=== PATIENT | female | born 1940 | race Caucasian/White ===

== ENCOUNTER 2018-06-17 11:39 | Observation (INO) | payer OTHER ==
[~2018-06-17] VITALS: Ht 170.2 cm; Wt 100.2 kg
[~2018-06-17 11:39] MED LIST: ATV/1 PO; CHOL100027 PO; CYAN100020 PO; FLUO10CA48 PO; HYDR-4380 PO; HYDR50TA3 PO; K-DUR PO; LEVO200T6 PO; LOSA1TAB PO; MAGN1TAB19 PO; METF500T PO; METO-452 PO; ONDA4TAB46 PO; PANT40TA PO; RANI150T3 PO; SIMV20TA5 PO; TRAZ100T29 PO
[2018-06-17] MEDS ORDERED: SODIUM CHLORIDE 0.9% 1000ML 1,000 ML IV STA (11:59)
[2018-06-17 12:13] LABS: BASO % 0.5 %; BASO ABS # 0.03 K/uL (0-0.2); EOS % 3.1 %; EOS ABS # 0.17 K/uL (0-0.5); HEMATOCRIT 43.7 % (37-47); HEMOGLOBIN 14.7 g/dL (12.0-16.0); IG# 0.01 K/uL (0.00-0.02); LYMPH % 29.7 %; LYMPH ABS # 1.64 K/uL (1.2-3.4); MEAN CELL VOLUME 100.2 fL (80-100); MEAN CORPUSCULAR HEMOGLOBIN 33.7 pg (25-34); MEAN CORPUSCULAR HGB CONC 33.6 g/dl (32-36); MEAN PLATELET VOLUME 11.4 fL (7.4-10.4); MONO ABS # 0.61 K/uL (0.11-0.59); NEUT % 55.5 %; NEUT ABS # 3.07 K/uL (1.4-6.5); PLATELET COUNT 184 K/uL (130-400); RED CELL DISTRIBUTION WIDTH SD 47.7 fL (36.4-46.3); WHITE BLOOD COUNT 5.53 K/uL (4.8-10.8)
--- NOTE | 2018-06-17 12:13 | DIAGNOSTIC IMAGING REPORT ---
CHEST ONE VIEW PORTABLE CLINICAL HISTORY: EVALUATE WEAKNESS weakness COMPARISON STUDY: 10/13/2014 FINDINGS: Mild cardia megaly. Lungs are clear. Permanent bipolar cardiac pacemaker/defibrillator in good position. No evidence pneumothorax. IMPRESSION: No acute process. The above report was generated using voice recognition software. It may contain grammatical, syntax or spelling errors. Electronically signed by: Rod Koo M.D. 06/17/2018 12:12 PM Dictated Date/Time: 06/17/2018 12:11 PM
[2018-06-17 12:22] LABS: INR 1.2 (0.9-1.1); PTT PATIENT 27.4 SECONDS (21.0-31.0)
[2018-06-17 12:43] LABS: ALBUMIN 3.3 gm/dl (3.4-5.0); ALKALINE PHOSPHATASE 64 U/L (45-117); ALT/SGPT 23 U/L (12-78); AST/SGOT 25 U/L (15-37); BLOOD UREA NITROGEN 18 mg/dl (7-18); CALCIUM 8.2 mg/dl (8.5-10.1); CARBON DIOXIDE 27 mmol/L (21-32); CKMB < 1.0 ng/ml (0.5-3.6); CREATININE 0.86 mg/dl (0.60-1.20); GLUCOSE 99 mg/dl (70-99); POTASSIUM 4.1 mmol/L (3.5-5.1); SODIUM 137 mmol/L (136-145)
[2018-06-17] MEDS ORDERED: HYDR12.56 PO (12:53)
[2018-06-17] MEDS ORDERED: WARF2TAB8 PO ×2 (12:53→14:52)
[2018-06-17] MEDS ORDERED: CZR25 PO (12:53)
[2018-06-17] MEDS ORDERED: FLUO20CA36 PO (12:53)
[2018-06-17] MEDS ORDERED: POTA10TA PO (12:53)
[2018-06-17] MEDS ORDERED: TPRSR/100 PO (12:53)
[2018-06-17] MEDS ORDERED: LEVO125T5 PO (12:53)
[2018-06-17] MEDS ORDERED: NITROGLYCERIN 2% OINTMENT 30GM TUBE EXT ONE (14:00)
[2018-06-17 14:05] VITALS: O2SAT 96; Ht 170.2 cm; Wt 100.2 kg
[2018-06-17] MEDS ORDERED: NITROGLYCERIN 0.4 MG SL PER TAB CHARGE SL PRN (14:45)
[2018-06-17] MEDS ORDERED: ACETAMINOPHEN 325 MG TAB PO PRN (14:45)
--- NOTE | 2018-06-17 14:48 | EMERGENCY ROOM VISIT NOTE ---
History Report prepared by Jose: Candi Hughes Under the Supervision of: Dr. Tello Veliz M.D. First contact with patient: 11:59 Chief Complaint: CHEST PAIN Stated Complaint: CHEST PAIN, PAIN/ACHE DOWN LEFT ARM History of Present Illness The patient is a 78 year old female who presents to the Emergency Room with complaints of chest pain beginning earlier this morning. The patient states that she was in bed when her pain came on suddenly. She rates her pain at a 6/ 10 and states that she took 2 Tylenol for her symptoms but states that this did not alleviate her pain. The patient states that she has also had left arm pain. The patient reports having numbness in her arm currently but no chest pain. The patient denies having chest or arm pain over the last couple of days and she denies doing anything strenuous recently. The patient states that she has a pacemaker. She reports that she follows with Dr. Langston [facility]. The patient denies a history of heart attacks or blockages. She states that she is not a smoker. The patient reports a family history of heart problems. Pt denies headache, fevers, chills, diaphoresis, visual changes, neck pain, breathing difficulties, nausea, vomiting, abdominal pain, back pain, melena, hematochezia, urinary symptoms, lymphadenopathy, rash, or other complaints. Source of History: patient Onset: earlier this morning Position: chest Symptom Intensity: rated at a 6/10 Quality: other (pain) Associated Symptoms: + numbness (and pain in right arm ), No SOB Review of Systems See HPI for pertinent positives and negatives. A total of ten systems were reviewed and were otherwise negative. Past Medical & Surgical Medical Problems: (1) Hypertension (2) Left arm numbness (3) Shoulder pain Family History FH: congenital heart problem Social History Smoking Status: Never Smoker Drug Use: none Marital Status: Housing Status: lives with family Occupation Status: unemployed Current/Historical Medications Scheduled Cholecalciferol (Vitamin D 1000 Unit), 1,000 INTER.UNIT PO QAM Cyanocobalamin (Vitamin B12), 1 TAB PO QAM Fluoxetine HCl (Fluoxetine HCl), 20 MG PO BID Hydrochlorothiazide (Hctz), 12.5 MG PO 2XWK Levothyroxine Sodium (Levothyroxine Sodium), 125 MG PO DAILY Losartan Potassium (Losartan Potassium), 25 MG PO DAILY Magnesium Oxide (Mg Supplement (Magnesium Oxide), 1 TAB PO BID Metformin Hcl (Glucophage), 1 TAB PO DAILY AFTER LUNCH Metoprolol Succinate (Metoprolol Succinate ER), 100 MG PO BID Pantoprazole (Protonix), 40 MG PO QAM Potassium Chloride (K-Tabs), 10 MEQ PO DAILY Ranitidine Hcl (Zantac), 150 MG PO BID Simvastatin (Zocor), 20 MG PO QPM Trazodone Hcl (Trazodone), 100 MG PO HS Warfarin Sod (Jantoven), MG PO UD Allergies Coded Allergies: Clarithromycin (Verified Allergy, Unknown, 06/17/18) Codeine (Verified Allergy, Unknown, 06/17/18) Penicillins (Verified Allergy, Unknown, AMPICILLIN, 06/17/18) Corticosteroids (Verified Adverse Reaction, Intermediate, BODY SWELLS UP, 06/17/18) Morphine (Verified Adverse Reaction, Intermediate, CONFUSION, 06/17/18) Physical Exam Vital Signs Date Time Temp Pulse Resp B/P (MAP) Pulse Ox O2 Delivery O2 Flow Rate FiO2 06/17/18 14:19 73 14 161/102 96 Room Air 06/17/18 13:22 73 18 171/103 95 Room Air 06/17/18 12:03 81 06/17/18 12:00 98 Room Air 06/17/18 12:00 98 Room Air 06/17/18 11:41 36.6 90 17 153/89 98 Room Air Physical Exam GENERAL: Awake, alert, well-appearing, in no distress HENT: Normocephalic, atraumatic. Oropharynx unremarkable. EYES: Normal conjunctiva. Sclera non-icteric. NECK: Supple. No nuchal rigidity. FROM. No masses. RESPIRATORY: Clear to auscultation. No wheezes. No rales. Normal respiratory effort. CARDIAC: Borderline tachycardia. Normal rhythm. No murmurs. No rubs. Extremities warm and well perfused. Pulses equal. No JVD. CHEST: No tenderness in the left upper chest. Pacemaker present. GI: Soft, non-distended. No tenderness to palpation. No rebound or guarding. No masses. RECTAL: Deferred. MUSCULOSKELETAL: Atraumatic. Chest examination reveals no tenderness. The back is symmetrical on inspection without obvious abnormality. There is no CVA tenderness to palpation. No joint edema. LOWER EXTREMITIES: Calves are equal size bilaterally and non-tender. No edema. No discoloration. NEURO: Normal sensorium. No sensory or motor deficits noted. SKIN: No rash or jaundice noted. Medical Decision & Procedures ER Provider Diagnostic Interpretation: Radiology results as stated below per my review and radiologist interpretation: CHEST ONE VIEW PORTABLE CLINICAL HISTORY: EVALUATE WEAKNESS weakness COMPARISON STUDY: 10/13/2014 FINDINGS: Mild cardia megaly. Lungs are clear. Permanent bipolar cardiac pacemaker/defibrillator in good position. No evidence pneumothorax. IMPRESSION: No acute process. The above report was generated using voice recognition software. It may contain grammatical, syntax or spelling errors. Electronically signed by: Rod Koo M.D. 06/17/2018 12:12 PM Dictated Date/Time: 06/17/2018 12:11 PM Laboratory Results 06/17/18 12:00 Red Blood Count 4.36, Mean Corpuscular Volume 100.2, Mean Corpuscular Hemoglobin 33.7, Mean Corpuscular Hemoglobin Concent 33.6, Mean Platelet Volume 11.4, Neutrophils (%) (Auto) 55.5, Lymphocytes (%) (Auto) 29.7, Monocytes (%) ( Auto) 11.0, Eosinophils (%) (Auto) 3.1, Basophils (%) (Auto) 0.5, Neutrophils # (Auto) 3.07, Lymphocytes # (Auto) 1.64, Monocytes # (Auto) 0.61, Eosinophils # ( Auto) 0.17, Basophils # (Auto) 0.03 06/17/18 12:00 Test 06/17/18 12:00 White Blood Count 5.53 K/uL (4.8-10.8) Red Blood Count 4.36 M/uL (4.2-5.4) Hemoglobin 14.7 g/dL (12.0-16.0) Hematocrit 43.7 % (37-47) Mean Corpuscular Volume 100.2 fL (80-100) Mean Corpuscular Hemoglobin 33.7 pg (25-34) Mean Corpuscular Hemoglobin Concent 33.6 g/dl (32-36) Platelet Count 184 K/uL (130-400) Mean Platelet Volume 11.4 fL (7.4-10.4) Neutrophils (%) (Auto) 55.5 % Lymphocytes (%) (Auto) 29.7 % Monocytes (%) (Auto) 11.0 % Eosinophils (%) (Auto) 3.1 % Basophils (%) (Auto) 0.5 % Neutrophils # (Auto) 3.07 K/uL (1.4-6.5) Lymphocytes # (Auto) 1.64 K/uL (1.2-3.4) Monocytes # (Auto) 0.61 K/uL (0.11-0.59) Eosinophils # (Auto) 0.17 K/uL (0-0.5) Basophils # (Auto) 0.03 K/uL (0-0.2) RDW Standard Deviation 47.7 fL (36.4-46.3) RDW Coefficient of Variation 13.0 % (11.5-14.5) Immature Granulocyte % (Auto) 0.2 % Immature Granulocyte # (Auto) 0.01 K/uL (0.00-0.02) Prothrombin Time 12.5 SECONDS (9.0-12.0) Prothromb Time International Ratio 1.2 (0.9-1.1) Activated Partial Thromboplast Time 27.4 SECONDS (21.0-31.0) Partial Thromboplastin Ratio 1.1 Anion Gap 5.0 mmol/L (3-11) Est Creatinine Clear Calc Drug Dose 67.7 ml/min Estimated GFR () 76.1 Estimated GFR (Non- 65.6 BUN/Creatinine Ratio 21.4 (10-20) Calcium Level 8.2 mg/dl (8.5-10.1) Magnesium Level 2.0 mg/dl (1.8-2.4) Total Bilirubin 0.5 mg/dl (0.2-1) Direct Bilirubin 0.2 mg/dl (0-0.2) Aspartate Amino Transf (AST/SGOT) 25 U/L (15-37) Alanine Aminotransferase (ALT/SGPT) 23 U/L (12-78) Alkaline Phosphatase 64 U/L (45-117) Total Creatine Kinase 45 U/L (26-192) Creatine Kinase MB < 1.0 ng/ml (0.5-3.6) Creatine Kinase MB Ratio (0-3.0) Troponin I < 0.015 ng/ml (0-0.045) Total Protein 7.0 gm/dl (6.4-8.2) Albumin 3.3 gm/dl (3.4-5.0) Thyroid Stimulating Hormone (TSH) 1.930 uIu/ml (0.300-4.500) Laboratory results reviewed by me Medications Administered Medications (Trade) Dose Ordered Sig/Vero Route Start Time Stop Time Status Last Admin Dose Admin Sodium Chloride 1,000 ml @ 125 mls/hr Q8H STAT IV 06/17/18 11:59 06/17/18 19:58 06/17/18 12:24 125 MLS/HR Nitroglycerin (Nitroglycerin 2% Oint) 0.5 inch NOW ONCE EXT 06/17/18 14:00 06/17/18 14:01 DC 06/17/18 14:21 0.5 INCH ECG Per My Interpretation Indication: chest pain Rate (beats per minute): 104 Rhythm: other (paced) Findings: PVC, other (no ST elevation, no ST depression ) ED Course 1159: Ordered Sodium Chloride 1000 ml @ 125 mls/hr IV. 1208: The patient was evaluated in room C2B. A complete history and physical exam was performed. 1349: Upon reexamination, the patient was resting. I discussed the test results and treatment plan with her. The patient will be evaluated for further management by Gertrudis SPRING who asked for the patient to get another dose of nitro paste. 1400: Ordered Nitroglycerin 0.5 inch EXT. Medical Decision Prior records/ancillary studies reviewed. Triage Nursing notes reviewed and agree them. Additional history obtained from the family. The patient's history was concerning for chest pain. Differential diagnosis: Etiologies such as cardiac ischemia, aortic dissection, pulmonary embolism, pneumonia, pneumothorax, musculoskeletal, infections, pericarditis, myocarditis , esophageal rupture, gastrointestinal, as well as others were entertained. Physical examination: As above. ER treatment provided: Saline hydration Nitropaste On reassessment the patient felt better. The patient notes GI upset with aspirin and is currently taking Coumadin. Aspirin held pending further evaluation by internal medicine. Diagnostic interpretation by me: The electrocardiogram was negative for pathologic change. Mild tachycardia noted paced rhythm. Pacemaker interrogation ordered. The labs revealed an unremarkable CBC and chemistry panel. Cardiac markers negative. INR subtherapeutic. Imaging studies: Chest x-ray as above The patient had left-sided chest pain and left arm pain. She will need further evaluation in the hospital to rule out a cardiac etiology. Pacemaker interrogation has been ordered but is not currently completed. Consultation: A consultation was placed with the hospitalist. The case was discussed and diagnostics were reviewed. The patient was evaluated in the ER for further treatment. Medication Reconcilliation Current Medication List: was personally reviewed by me Blood Pressure Screening Patient's blood pressure: Elevated blood pressure will be monitored by hospitalist Consults Time Called: 1338 Consulting Physician: Gertrudis Paniagua Returned Call: 1346 Discussed the patient's case. The patient will be evaluated for further treatment and disposition. Impression Primary Impression: Left sided chest pain Additional Impression: Left arm pain Scribe Attestation The scribe's documentation has been prepared under my direction and personally reviewed by me in its entirety. I confirm that the note above accurately reflects all work, treatment, procedures, and medical decision making performed by me. Departure Information Dispostion Being Evaluated By Hospitalist Referrals Haile Walker M.D. (PCP) Patient Instructions [facility] Problem Qualifiers
[2018-06-17] MEDS ORDERED: MELATAB2 PO (14:52)
[2018-06-17] MEDS ORDERED: HYDR-4380 PO (14:52)
[2018-06-17] MEDS ORDERED: HYDR50TA3 PO (14:52)
[2018-06-17] MEDS ORDERED: IV FLUIDS COMPLETED PRN (15:30)
[2018-06-17] MEDS ORDERED: GLUCOSE 10 TABS/TUBE PO PRN (15:45)
[2018-06-17] MEDS ORDERED: CARBOHYDRATES FOR HYPOGLYCEMIA PO PRN (15:45)
[2018-06-17] MEDS ORDERED: GLUCOSE 40% GEL 15 GM TUBE PO PRN (15:45)
[2018-06-17] MEDS ORDERED: DEXTROSE 50% 50 ML SYR IV PRN (15:45)
[2018-06-17] MEDS ORDERED: GLUCAGON FOR INJ 1 MG VIAL SQ PRN (15:45)
[2018-06-17 17:00] VITALS: BP 157/98; PULSE 80; TEMP 36.5; O2SAT 92
[2018-06-17] MEDS ORDERED: WARFARIN SOD 4 MG TAB PO SCH (17:30)
--- NOTE | 2018-06-17 17:30 | History and Physical ---
History & Physical Date & Time of Service: Jun 17, 2018 ~ 14:15 Chief Complaint: Left Arm Numbness, Shoulder Pain Primary Care Physician: Haile Walker M.D. History of Present Illness 78-year-old female who presents to the ED with left shoulder pain and left arm numbness. Patient reports she was awoken early this morning with the symptoms. Patient also notes that over the past few days she has been having some neck pain and stiffness. She reports the left shoulder pain lasted for about 1 hour however the left arm numbness/tingling still persists. She denies associated chest pain or shortness of breath. No associated diaphoresis, lightheadedness, nausea. Patient has chronic exertional shortness of breath which is unchanged from baseline. She has chronic lower extremity edema which is unchanged from baseline as well. She denies abdominal pain, vomiting, diarrhea. No other recent illnesses, fevers, chills. She denies any urinary symptoms. In the ED, patient's EKG demonstrates a paced rhythm and initial troponin is negative. Patient was hypertensive with BP as high as 171/103. 1/2 inch of topical nitroglycerin paste was placed on the patient. 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 (11) Ventricular tachycardia Status: Chronic Surgical Problems: (1) History of cataract surgery Status: Chronic (2) History of total left knee replacement Status: Chronic (3) History of total right knee replacement Status: Chronic (4) Hx of appendectomy Status: Chronic (5) Hx of cardiac cath Permanent Comment: 2004-demonstrated normal coronary arteries Status: Chronic (6) S/P right knee arthroscopy Status: Chronic (7) S/P KATHLEEN-BSO Status: Chronic Family History Diabetes mellitus FATHER MOTHER Social History Smoking Status: Never Smoker Alcohol Use: Heavy alcohol use about 15 years ago, was drinking half gallon of vodka in 3 days over the past 1 year however stopped 3 months ago Marital Status: Allergies Coded Allergies: Clarithromycin (Verified Allergy, Unknown, 06/17/18) Codeine (Verified Allergy, Unknown, 06/17/18) Penicillins (Verified Allergy, Unknown, AMPICILLIN, 06/17/18) Corticosteroids (Verified Adverse Reaction, Intermediate, BODY SWELLS UP, 06/17/18) Morphine (Verified Adverse Reaction, Intermediate, CONFUSION, 06/17/18) Home Medications Scheduled Cholecalciferol (Vitamin D 1000 Unit), 1,000 INTER.UNIT PO QAM Cyanocobalamin (Vitamin B12), 1 TAB PO QAM Fluoxetine HCl (Fluoxetine HCl), 20 MG PO BID Levothyroxine Sodium (Levothyroxine Sodium), 125 MG PO DAILY Losartan Potassium (Losartan Potassium), 25 MG PO DAILY Magnesium Oxide (Mg Supplement (Magnesium Oxide), 1 TAB PO BID Melatonin (Melatonin Maximum Strengt), 1 TAB PO HS Metformin Hcl (Glucophage), 1 TAB PO DAILY AFTER LUNCH Metoprolol Succinate (Metoprolol Succinate ER), 100 MG PO DAILY Potassium Chloride (K-Tabs), 10 MEQ PO DAILY Simvastatin (Zocor), 20 MG PO QPM Trazodone Hcl (Trazodone), 100 MG PO HS Warfarin Sod (Jantoven), 2 MG PO MoFr Warfarin Sod (Jantoven), 4 MG PO SuTuWeThSa Scheduled PRN Hydrochlorothiazide (Hctz), 0.25 TAB PO DAILY PRN for swelling Hydrocodone-Acetaminophen (Hydrocodone/Acetaminophen), 1 TAB PO BID PRN for Pain Ranitidine Hcl (Zantac), 150 MG PO BID PRN for Dyspepsia Review of Systems ROS per HPI, all other systems reviewed and negative Physical Exam Vital Signs Date Time Temp Pulse Resp B/P (MAP) Pulse Ox O2 Delivery O2 Flow Rate FiO2 06/17/18 16:06 71 16 148/100 95 06/17/18 15:06 74 16 150/94 97 Room Air 06/17/18 14:19 73 14 161/102 96 Room Air 06/17/18 14:05 96 Room Air 06/17/18 13:22 73 18 171/103 95 Room Air 06/17/18 12:03 81 06/17/18 12:00 98 Room Air 06/17/18 12:00 98 Room Air 06/17/18 11:41 36.6 90 17 153/89 98 Room Air General Appearance: WD/WN, no apparent distress Head: normocephalic, atraumatic Eyes: normal inspection, PERRL, EOMI, sclerae normal ENT: hearing grossly normal, + pertinent finding (Mucous members moist) Neck: supple, no JVD, trachea midline Respiratory/Chest: lungs clear, normal breath sounds, no respiratory distress Cardiovascular: normal peripheral pulses, + irregularly irregular (Rate controlled), + pertinent finding (Trace edema BLE) Abdomen/GI: normal bowel sounds, non tender, soft, no organomegaly Extremities/Musculoskelatal: normal inspection, no calf tenderness, normal capillary refill Neurologic/Psych: no motor/sensory deficits, alert, normal mood/affect, oriented x 3 Skin: normal color, warm/dry Diagnostics Laboratory Results Results Past 24 Hours Test 06/17/18 12:00 Range/Units White Blood Count 5.53 4.8-10.8 K/uL Red Blood Count 4.36 4.2-5.4 M/uL Hemoglobin 14.7 12.0-16.0 g/dL Hematocrit 43.7 37-47 % Mean Corpuscular Volume 100.2 80-100 fL Mean Corpuscular Hemoglobin 33.7 25-34 pg Mean Corpuscular Hemoglobin Concent 33.6 32-36 g/dl Platelet Count 184 130-400 K/uL Mean Platelet Volume 11.4 7.4-10.4 fL Neutrophils (%) (Auto) 55.5 % Lymphocytes (%) (Auto) 29.7 % Monocytes (%) (Auto) 11.0 % Eosinophils (%) (Auto) 3.1 % Basophils (%) (Auto) 0.5 % Neutrophils # (Auto) 3.07 1.4-6.5 K/uL Lymphocytes # (Auto) 1.64 1.2-3.4 K/uL Monocytes # (Auto) 0.61 0.11-0.59 K/uL Eosinophils # (Auto) 0.17 0-0.5 K/uL Basophils # (Auto) 0.03 0-0.2 K/uL RDW Standard Deviation 47.7 36.4-46.3 fL RDW Coefficient of Variation 13.0 11.5-14.5 % Immature Granulocyte % (Auto) 0.2 % Immature Granulocyte # (Auto) 0.01 0.00-0.02 K/uL Prothrombin Time 12.5 9.0-12.0 SECONDS Prothromb Time International Ratio 1.2 0.9-1.1 Activated Partial Thromboplast Time 27.4 21.0-31.0 SECONDS Partial Thromboplastin Ratio 1.1 Sodium Level 137 136-145 mmol/L Potassium Level 4.1 3.5-5.1 mmol/L Chloride Level 105 98-107 mmol/L Carbon Dioxide Level 27 21-32 mmol/L Anion Gap 5.0 3-11 mmol/L Blood Urea Nitrogen 18 7-18 mg/dl Creatinine 0.86 0.60-1.20 mg/dl Est Creatinine Clear Calc Drug Dose 67.7 ml/min Estimated GFR () 76.1 Estimated GFR (Non- 65.6 BUN/Creatinine Ratio 21.4 10-20 Random Glucose 99 70-99 mg/dl Calcium Level 8.2 8.5-10.1 mg/dl Magnesium Level 2.0 1.8-2.4 mg/dl Total Bilirubin 0.5 0.2-1 mg/dl Direct Bilirubin 0.2 0-0.2 mg/dl Aspartate Amino Transf (AST/SGOT) 25 15-37 U/L Alanine Aminotransferase (ALT/SGPT) 23 12-78 U/L Alkaline Phosphatase 64 45-117 U/L Total Creatine Kinase 45 26-192 U/L Creatine Kinase MB < 1.0 0.5-3.6 ng/ml Creatine Kinase MB Ratio 0-3.0 Troponin I < 0.015 0-0.045 ng/ml Total Protein 7.0 6.4-8.2 gm/dl Albumin 3.3 3.4-5.0 gm/dl Thyroid Stimulating Hormone (TSH) 1.930 0.300-4.500 uIu/ml Diagnostic Radiology CXR IMPRESSION: No acute process. Impression Assessment and Plan LEFT SHOULDER PAIN/LEFT ARM NUMBNESS HISTORY OF SUDDEN CARDIAC S/P ICD -Admit to telemetry -Patient presenting from home where she was awoken this morning with left shoulder pain and left arm numbness -Patient denies any associated chest pain or shortness of breath however consider anginal equivalent or due to hypertensive urgency -Initial troponin negative, EKG demonstrates paced rhythm -Continue to cycle cardiac enzymes, resting echocardiogram -ICD interrogation ordered by ED and is pending -If symptoms persist, consider cervical radiculopathy and obtain further imaging -Continue beta-ludwig and statin -Cardiology consult, case discussed with Dr. Hartley HYPERTENSIVE URGENCY -BP 171/103 -Half-inch nitroglycerin paste applied in ED, BP is improving -Continue losartan, metoprolol-defer adjustments to cardiology ATRIAL FIBRILLATION -Rate controlled on beta-ludwig, will continue -Anticoagulated on Coumadin, INR 1.2 -outpatient dose of Coumadin was not increased secondary to a planned teeth extraction DM TYPE II -Hgb A1c 5.4 06/2018 -Hold metformin and utilize NovoLog per protocol while hospitalized HYPOTHYROIDISM -Continue levothyroxine DVT PROPHYLAXIS -SQ Lovenox 40 mg daily until INR therapeutic CODE STATUS -Patient is a full code as per discussion with her. DISPOSITION -The patient will be placed as observation status for now until further work up is complete. Advanced Directives Existing Living Will: No Existing Power of Mechanical Maintenance Worker: No Resuscitation Status VTE Prophylaxis Will order VTE Prophylaxis: Yes Note ATTENDING ADDENDUM Record reviewed. Patient interviewed and examined. Care coordinated with SAW Ibarra. Please refer to her documentation for patient's history. 78 YO female, history of cardiomyopathy, history of VT cardiac arrest 2004 s/p AICD. Awakened this morning with left arm pain / numbness. Took Tylenol without relief. Sometimes experiences chest pressure with exertion. EXAM: General- no acute distress VS- as noted HEENT- PERRL, EOMI, anicteric Neck- no JVD Lungs- clear to auscultation Heart- RRR, no murmur or gallop appreciated Abdomen- + BS, soft, nontender Extremities- no pretibial edema or calf tenderness Neuro- alert, grossly nonfocal DATA: Serum troponin < 0.015. Other lab studies as noted. EKG performed at 11:47 reviewed and demonstrated ventricular paced rhythm at 80 / minute. Chest x-ray showed cardiomegaly, ICD/pacer, no acute process. ASSESSMENT AND PLAN: Left arm pain / paresthesiae at rest. History of cardiomyopathy and ventricular tachycardia. Check serial troponins. Consult Cardiology. Please refer to FEROZ Burnett's documentation for discussion of other issues. Tello Torres MD .
[2018-06-17] MEDS: ENOXAPARIN 40 MG/0.4 ML SYR SQ SCH (17:33)
[2018-06-17] MEDS: INSULIN ASPART 100 UNITS/ML 3 ML PEN SC SCH ×2 (18:01→21:00)
[2018-06-17 19:48] VITALS: BP 143/85; PULSE 75; TEMP 36.5; O2SAT 96
[2018-06-17] MEDS: FLUOXETINE HCL 20 MG CAP PO SCH (20:56)
[2018-06-17] MEDS: MAGNESIUM OXIDE 400 MG TAB PO SCH (20:56)
[2018-06-17] MEDS ORDERED: NON-FORMULARY MEDICATION (Melatonin (Melatonin Maximum Strengt) 1 TAB) PO SCH (21:00)
[2018-06-17] MEDS ORDERED: TRAZODONE HCL 100 MG TAB PO SCH (21:00)
[2018-06-17] MEDS ORDERED: SIMVASTATIN 20 MG TAB PO SCH (21:00)
[2018-06-17 23:41] VITALS: BP 142/94; PULSE 72; TEMP 36.7; O2SAT 96
[2018-06-18 03:30] VITALS: BP 129/67; PULSE 60; TEMP 36.7; O2SAT 96
[2018-06-18 05:57] LABS: HEMATOCRIT 42.6 % (37-47); HEMOGLOBIN 14.2 g/dL (12.0-16.0); MEAN CORPUSCULAR HEMOGLOBIN 33.3 pg (25-34); MEAN CORPUSCULAR HGB CONC 33.3 g/dl (32-36); MEAN PLATELET VOLUME 11.7 fL (7.4-10.4); PLATELET COUNT 161 K/uL (130-400); RED CELL DISTRIBUTION WIDTH CV 13.1 % (11.5-14.5); RED CELL DISTRIBUTION WIDTH SD 47.7 fL (36.4-46.3)
[2018-06-18 05:57] LABS: HEMOGLOBIN A1C 5.4 % (4.5-5.6)
[2018-06-18] MEDS ORDERED: LEVOTHYROXINE 125 MCG TAB PO SCH (06:00)
[2018-06-18 06:06] LABS: INR 1.2 (0.9-1.1)
[2018-06-18 06:30] LABS: CALCIUM 7.8 mg/dl (8.5-10.1); CREATININE 0.7 mg/dl (0.60-1.20); POTASSIUM 3.8 mmol/L (3.5-5.1)
[2018-06-18 07:20] VITALS: BP 148/92; PULSE 57; TEMP 36.4; O2SAT 95
[2018-06-18] MEDS: FLUOXETINE HCL 20 MG CAP PO SCH (08:16)
[2018-06-18] MEDS: MAGNESIUM OXIDE 400 MG TAB PO SCH (08:16)
[2018-06-18] MEDS: INSULIN ASPART 100 UNITS/ML 3 ML PEN SC SCH ×3 (08:18→16:52)
[2018-06-18] MEDS ORDERED: METOPROLOL SUCC 50MG EXT REL TAB PO SCH (09:00)
[2018-06-18] MEDS ORDERED: NON-FORMULARY MEDICATION (Metoprolol Succinate (Metoprolol Succinate ER) 100 MG) PO SCH (09:00)
[2018-06-18] MEDS ORDERED: CYANOCOBALAMIN 500 MCG TAB (VIT B-12) PO SCH (09:00)
[2018-06-18] MEDS ORDERED: LOSARTAN POTASSIUM 25 MG TAB PO SCH (09:00)
[2018-06-18] MEDS ORDERED: CHOLECALCIFEROL 1000 INTER.UNIT TAB PO SCH (09:00)
[2018-06-18] MEDS ORDERED: POTASSIUM CHLORIDE 10 MEQ TABCR PO SCH (09:00)
--- NOTE | 2018-06-18 10:43 | Progress Note ---
Medicine Progress Note Date & Time of Visit: Jun 18, 2018 at 10:32. Subjective seen resting in bed, comfortable oriented states neck pain- left side/posterior radiating to the left shoulder is about the same- worse with moving neck to the left also has intermittent left shoulder numbness no other focal neuro deficits denies chest pain, dyspnea, palpitations, dizziness no other symptoms Objective Last 8 Hrs Date Time Temp Pulse Resp B/P (MAP) Pulse Ox O2 Delivery O2 Flow Rate FiO2 06/18/18 08:00 Room Air 06/18/18 07:20 36.4 57 20 148/92 (110) 95 Room Air 06/18/18 03:30 36.7 60 18 129/67 (87) 96 Room Air Physical Exam: General- oriented x 3, not in distress, speaks in sentences with no effort Head- atraumatic Eyes-anicteric ENT- oropharynx clear Neck- supple, no JVD Lungs- clear to auscultation bilaterally Heart- irregularly irregular rhythm; no murmur, normal rate Abdomen- normal bowel sounds, soft, nontender Extremities- no pretibial edema, no calf tenderness; peripheral pulses intact Neuro- alert, oriented x 2 mild numbness on the left shoulder no other focal neuro symptoms Skin- warm & dry Laboratory Results: Last 24 Hours Test 06/17/18 12:00 06/17/18 16:44 06/17/18 18:19 06/17/18 19:35 White Blood Count 5.53 K/uL Red Blood Count 4.36 M/uL Hemoglobin 14.7 g/dL Hematocrit 43.7 % Mean Corpuscular Volume 100.2 fL Mean Corpuscular Hemoglobin 33.7 pg Mean Corpuscular Hemoglobin Concent 33.6 g/dl Platelet Count 184 K/uL Mean Platelet Volume 11.4 fL Neutrophils (%) (Auto) 55.5 % Lymphocytes (%) (Auto) 29.7 % Monocytes (%) (Auto) 11.0 % Eosinophils (%) (Auto) 3.1 % Basophils (%) (Auto) 0.5 % Neutrophils # (Auto) 3.07 K/uL Lymphocytes # (Auto) 1.64 K/uL Monocytes # (Auto) 0.61 K/uL Eosinophils # (Auto) 0.17 K/uL Basophils # (Auto) 0.03 K/uL RDW Standard Deviation 47.7 fL RDW Coefficient of Variation 13.0 % Immature Granulocyte % (Auto) 0.2 % Immature Granulocyte # (Auto) 0.01 K/uL Prothrombin Time 12.5 SECONDS Prothromb Time International Ratio 1.2 Activated Partial Thromboplast Time 27.4 SECONDS Partial Thromboplastin Ratio 1.1 Sodium Level 137 mmol/L Potassium Level 4.1 mmol/L Chloride Level 105 mmol/L Carbon Dioxide Level 27 mmol/L Anion Gap 5.0 mmol/L Blood Urea Nitrogen 18 mg/dl Creatinine 0.86 mg/dl Est Creatinine Clear Calc Drug Dose 67.7 ml/min Estimated GFR () 76.1 Estimated GFR (Non- 65.6 BUN/Creatinine Ratio 21.4 Random Glucose 99 mg/dl Estimated Average Glucose 108 mg/dl Hemoglobin A1c 5.4 % Calcium Level 8.2 mg/dl Magnesium Level 2.0 mg/dl Total Bilirubin 0.5 mg/dl Direct Bilirubin 0.2 mg/dl Aspartate Amino Transf (AST/SGOT) 25 U/L Alanine Aminotransferase (ALT/SGPT) 23 U/L Alkaline Phosphatase 64 U/L Total Creatine Kinase 45 U/L Creatine Kinase MB < 1.0 ng/ml Creatine Kinase MB Ratio Troponin I < 0.015 ng/ml < 0.015 ng/ml Total Protein 7.0 gm/dl Albumin 3.3 gm/dl Thyroid Stimulating Hormone (TSH) 1.930 uIu/ml Bedside Glucose 83 mg/dl Urine Color YELLOW Urine Appearance CLEAR Urine pH 6.5 Urine Specific [place] 1.019 Urine Protein NEG Urine Glucose (UA) NEG Urine Ketones TRACE Urine Occult Blood NEG Urine Nitrite NEG Urine Bilirubin NEG Urine Urobilinogen NEG Urine Leukocyte Esterase MODERATE Urine WBC (Auto) 5-10 /hpf Urine RBC (Auto) 0-4 /hpf Urine Hyaline Casts (Auto) 0 /lpf Urine Epithelial Cells (Auto) >30 /lpf Urine Bacteria (Auto) 1+ Test 06/17/18 20:46 06/18/18 00:20 06/18/18 05:39 06/18/18 07:21 Bedside Glucose 91 mg/dl 87 mg/dl Troponin I < 0.015 ng/ml White Blood Count 5.00 K/uL Red Blood Count 4.26 M/uL Hemoglobin 14.2 g/dL Hematocrit 42.6 % Mean Corpuscular Volume 100.0 fL Mean Corpuscular Hemoglobin 33.3 pg Mean Corpuscular Hemoglobin Concent 33.3 g/dl RDW Standard Deviation 47.7 fL RDW Coefficient of Variation 13.1 % Platelet Count 161 K/uL Mean Platelet Volume 11.7 fL Prothrombin Time 12.2 SECONDS Prothromb Time International Ratio 1.2 Sodium Level 141 mmol/L Potassium Level 3.8 mmol/L Chloride Level 109 mmol/L Carbon Dioxide Level 26 mmol/L Anion Gap 6.0 mmol/L Blood Urea Nitrogen 14 mg/dl Creatinine 0.70 mg/dl Est Creatinine Clear Calc Drug Dose 83.2 ml/min Estimated GFR () 97.5 Estimated GFR (Non- 84.2 BUN/Creatinine Ratio 19.5 Random Glucose 85 mg/dl Calcium Level 7.8 mg/dl Triglycerides Level 106 mg/dl Cholesterol Level 100 mg/dl HDL Cholesterol 34 mg/dl LDL Cholesterol, Calculated 45 mg/dl VLDL Cholesterol, Calculated 21 mg/dl Cholesterol/HDL Ratio 2.9 Date/Time Source Procedure Growth Status 06/17/18 19:35 Urine , Clean Catch Urine Culture Pending Received Assessment & Plan LEFT SHOULDER PAIN/LEFT ARM NUMBNESS ACS RULED OUT HISTORY OF SUDDEN CARDIAC S/P ICD AICD interrogation pending Echo pending Cardiology on board POSSIBLE CERVICAL RADICULOPATHY CT cervical spine ordered patient reports she develops significant edema with Prednisone may benefit from Gabapenting HYPERTENSIVE URGENCY -improving -Continue losartan, metoprolol ATRIAL FIBRILLATION -Rate controlled on beta-ludwig, will continue -Anticoagulated on Coumadin, INR 1.2 -outpatient dose of Coumadin was not increased secondary to a planned teeth extraction - continue usual coumadin DM TYPE II -Hgb A1c 5.4 06/2018 -Hold metformin and utilize NovoLog per protocol while hospitalized HYPOTHYROIDISM -Continue levothyroxine DVT PROPHYLAXIS -SQ Lovenox 40 mg daily until INR therapeutic CODE STATUS -Patient is a full code as per discussion with her. DISPOSITION -The patient will be placed as observation status for now until further work up is complete. - pending anticipate d/c home when medically stable Current Inpatient Medications: Current Inpatient Medications Medications (Trade) Dose Ordered Sig/Vero Route Start Time Stop Time Status Last Admin Dose Admin Acetaminophen (Tylenol Tab) 650 mg Q4H PRN PO 06/17/18 14:45 07/17/18 14:44 Nitroglycerin (Nitrostat Tab) 0.4 mg UD PRN SL 8/5/18 14:45 07/17/18 14:44 Miscellaneous (Iv Fluids Completed) 1 ea PRN PRN N/A 06/17/18 15:30 06/17/19 15:29 Enoxaparin Sodium (Lovenox Inj) 40 mg Q24H SQ 06/17/18 17:30 07/17/18 17:29 06/17/18 17:33 40 MG Insulin Aspart (novoLOG ASPART) SLIDING SCALE If C... ACHS SC 06/17/18 17:00 07/17/18 16:59 06/17/18 18:01 1 UNITS Glucose (Glucose 40% Gel) 15-30 GRAMS 15 GRAMS... UD PRN PO 06/17/18 15:45 07/17/18 15:44 Glucose (Glucose Chew Tab) 4-8 Tablets 4 Tabl... UD PRN PO 06/17/18 15:45 07/17/18 15:44 Dextrose (Dextrose 50% 50ML Syringe) 25-50ML 25ML FOR ... UD PRN IV 06/17/18 15:45 07/17/18 15:44 Glucagon (Glucagon Inj) 1 mg UD PRN SQ 06/17/18 15:45 07/17/18 15:44 Carbohydrates (Carbohydrates For Hypoglycemia) 15-30 GRAMS 15 grams if BSG 54-69... UD PRN PO 06/17/18 15:45 07/17/18 15:44 Cholecalciferol (Vitamin D Tab) 1,000 inter.unit QAM PO 06/18/18 09:00 07/18/18 08:59 06/18/18 08:16 1,000 INTER.UNIT Fluoxetine HCl (Prozac Cap) 20 mg BID PO 06/17/18 21:00 07/17/18 20:59 06/18/18 08:16 20 MG Levothyroxine Sodium (Synthroid Tab) 125 mcg DAILYBB PO 06/18/18 06:00 07/18/18 06:59 06/18/18 05:56 125 MCG Losartan Potassium (coZAAR TAB) 25 mg DAILY PO 06/18/18 09:00 07/18/18 08:59 06/18/18 08:16 25 MG Simvastatin (Zocor Tab) 20 mg QPM PO 06/17/18 21:00 07/17/18 20:59 06/17/18 20:55 20 MG Trazodone HCl (Desyrel Tab) 100 mg HS PO 06/17/18 21:00 07/17/18 20:59 06/17/18 20:55 100 MG Warfarin Sodium (Coumadin Tab) 2 mg MoFr@1600 PO 06/18/18 16:00 07/18/18 15:59 Warfarin Sodium (Coumadin Tab) 4 mg SuTuWeThSa@1600 PO 06/17/18 17:30 07/17/18 17:29 06/17/18 17:33 4 MG Cyanocobalamin (Vitamin B-12 Tab) 1,000 mcg QAM PO 06/18/18 09:00 07/18/18 08:59 06/18/18 08:16 1,000 MCG Magnesium Oxide (Mag-Ox Tab) 400 mg BID PO 06/17/18 21:00 07/17/18 20:59 06/18/18 08:16 400 MG Potassium Chloride (Klor-Con M10) 10 meq DAILY PO 06/18/18 09:00 07/18/18 08:59 06/18/18 08:16 10 MEQ Metoprolol Succinate (Toprol Xl Tab) 100 mg QAM PO 06/18/18 09:00 07/18/18 08:59 06/18/18 08:17 100 MG
--- NOTE | 2018-06-18 11:16 | Cardiology Consultation ---
Cardiology Consultation Date of Consultation: Jun 18, 2018 Requesting Physician: Karine Attending Manager Clinical: Odilia (Rod Nguyen PA-C) History of Present Illness Mrs. Palomino is a 78 year old female who is being seen at the request of Ms. Burnett /Dr. Torres. Reasons for consultation include left shoulder/arm pain, history of sudden cardiac . The patient notes awakening Monday morning feeling okay. She notes getting ready for mandaen, developing left shoulder/arm discomfort and left upper extremity numbness with movement; this was preceded by some cervical neck discomfort is aggravated by turning the head. At the time of my consultation she continues to have cervical neck discomfort is aggravated by turning the head to the right as well as left shoulder discomfort that is aggravated by movement of the left upper extremity. She no longer has a left upper extremity numbness. Outpatient INRs were recently subtherapeutic. She notes upcoming multiple dental extractions. She has chronic atrial fibrillation. Stable exertional dyspnea with activities of daily living. Stable bilateral lower extremity peripheral edema no chest pain. No new or worsening dyspnea. No resting or nocturnal dyspnea. No orthopnea or PND. EKG in the emergency room revealed a ventricular paced rhythm with occasional supraventricular complexes and occasional inappropriate atrial pacing. Underlying rhythm is atrial fibrillation. EKG this morning reveals atrial fibrillation with a ventricular rate of 71 bpm with occasional ventricular paced complexes. There are inferior and anterolateral ST-T wave changes that are similar to an EKG dated July 26, 2016. Troponin negative 3. (Rod Nguyen PA-C) Past Medical/Surgical History Problem List: December 2004 cardiac arrest secondary to ventricular tachycardia. History of angiographically normal coronaries December 2004 cardiac catheterization History of alcoholic cardiomyopathy Status post dual-chamber pacemaker defibrillator implantation. History of ICD therapy related to atrial fibrillation, rapid ventricular response. Chronic atrial fibrillation Chronic Coumadin anticoagulation Hypertension. Hyperlipidemia. Type 2 diabetes mellitus Hypothyroidism. GERD Depression Anxiety Osteoarthritis. S/P bilateral total knee replacements. November 2006 upper GI bleed sec Bilateral cataract surgery Appendectomy KATHLEEN-BSO (Rod Nguyen PA-C) Family History Diabetes mellitus FATHER MOTHER Her parents had a history of hypertension and type 2 diabetes mellitus. They both passed in her mid 70s from complications of diabetes. Sister with CAD (Rod Nguyen PA-C) Diabetes mellitus FATHER MOTHER (Epifaino Hartley, DO) Social History No history of tobacco abuse. Alcohol: 1/2 gallon of vodka every 3 days, abstaining approximately 1 month ago. No illegal drug use. to [place]. 2 children. Retired. Smoking Status: Never Smoker Alcohol Use: Heavy alcohol use about 15 years ago, was drinking half gallon of vodka in 3 days over the past 1 year however stopped 3 months ago Marital Status: (Rod Nguyen PA-C) Review Of Systems General: No fevers. No chills. No night sweats. HEENT: No headaches. Glasses. Bilateral cataract extraction. Cardiovascular: Stable exertional dyspnea. Chronic lower extremity peripheral edema. No resting dyspnea. No palpitations. No orthopnea or PND. No near syncope or true syncope. Pulmonary: Nonproductive cough. No hemoptysis. Daytime fatigue. Gastrointestinal: Mild diarrhea. History of hemorrhoid. No nausea. No vomiting. No melena or hematochezia. Denies kidney or liver trouble. Skin: No rash. Musculoskeletal: See above. Neurological: Denies history of TIA, CVA, or seizure. Complete review of system is otherwise as stated above, negative, noncontributory. (Rod Nguyen PA-C) Allergies Coded Allergies: Clarithromycin (Verified Allergy, Unknown, 06/17/18) Codeine (Verified Allergy, Unknown, 06/17/18) Penicillins (Verified Allergy, Unknown, AMPICILLIN, 06/17/18) Corticosteroids (Verified Adverse Reaction, Intermediate, BODY SWELLS UP, 06/17/18) Morphine (Verified Adverse Reaction, Intermediate, CONFUSION, 06/17/18) Medications Reported Home Medications Medications Dose Route/Sig Max Daily Dose Days Date Category Dose Instructions Hydrocodone/Acetaminophen (Hydrocodone-Acetaminophen) 1 Tab Tab 1 Tab PO BID PRN 06/17/18 Reported 5/500 Hctz (Hydrochlorothiazide) 50 Mg Tab 0.25 Tab PO DAILY PRN 30 06/17/18 Reported Melatonin Maximum Strengt (Melatonin) 5 Mg Tab 1 Tab PO HS 30 06/17/18 Reported Jantoven (Warfarin Sodium) 2 Mg Tab 4 Mg PO SUTUWETHSA 06/17/18 Reported K-Tabs (Potassium Chloride) 10 Meq Tab 10 Meq PO DAILY 06/17/18 Reported Losartan Potassium 25 Mg Tab 25 Mg PO DAILY 06/17/18 Reported Jantoven (Warfarin Sodium) 2 Mg Tab 2 Mg PO MOFR 06/17/18 Reported Levothyroxine Sodium 125 Mcg Tab 125 Mg PO DAILY 06/17/18 Reported Metoprolol Succinate ER (Metoprolol Succinate) 100 Mg Tabcr 100 Mg PO DAILY 06/17/18 Reported Fluoxetine HCl 20 Mg Cap 20 Mg PO BID 06/17/18 Reported Vitamin D 1000 Unit (Cholecalciferol) 1,000 Unit Cap 1,000 Inter.unit PO QAM 11/12/15 Reported Vitamin B12 (Cyanocobalamin) 1,000 Mcg Tab 1 Tab PO QAM 11/12/15 Reported Zocor (Simvastatin) 20 Mg Tab 20 Mg PO QPM 11/12/15 Reported Glucophage (Metformin Hcl) 500 Mg Tab 1 Tab PO DAILY AFTER LUNCH 11/12/15 Reported Zantac (Ranitidine HCl) 150 Mg Tab 150 Mg PO BID PRN 11/12/15 Reported Magnesium Oxide (Magnesium Oxide (Mg Supplement) 400 Mg Tab 1 Tab PO BID 11/12/15 Reported Trazodone (Trazodone HCl) 100 Mg Tab 100 Mg PO HS 11/12/15 Reported (Rod Nguyen PA-C) Physical Exam Vital Signs (Last 8hrs): Last 8 Hrs Date Time Temp Pulse Resp B/P (MAP) Pulse Ox O2 Delivery O2 Flow Rate FiO2 06/18/18 08:00 Room Air 06/18/18 07:20 36.4 57 20 148/92 (110) 95 Room Air 06/18/18 03:30 36.7 60 18 129/67 (87) 96 Room Air General: Alert and Oriented x3. NAD. Somewhat anxious. HEENT: Normocephalic Atraumatic. PER, EOMI, conjunctiva and sclera clear Neck: Right carotid bruit. No JVD. No HJD. Respiratory: Breath sounds clear to auscultation bilaterally. No w/r/r. Cardiovascular: Irregularly irregular. Soft apical systolic murmur. No diastolic murmur. No rub. Chest/torso: The left shoulder discomfort is reproducible with elevation of the left upper extremity. The cervical neck discomfort is reproduced with rotation of the head to the right. No discomfort is elicited with palpation. Abdomen: Normal bowel sounds, soft nontender. no abdominal bruits. Extremities: Minimal edema. Lymphedematous changes. Mild chronic stasis changes. No clubbing. No cyanosis. Distal pulses are 1/4 bilaterally. Neuro: No focal deficits. Psychiatric: Flat affect. (Rod Nguyen PA-C) Data Last 24 Hours Test 06/17/18 12:00 06/17/18 16:44 06/17/18 18:19 06/17/18 19:35 White Blood Count 5.53 K/uL Red Blood Count 4.36 M/uL Hemoglobin 14.7 g/dL Hematocrit 43.7 % Mean Corpuscular Volume 100.2 fL Mean Corpuscular Hemoglobin 33.7 pg Mean Corpuscular Hemoglobin Concent 33.6 g/dl Platelet Count 184 K/uL Mean Platelet Volume 11.4 fL Neutrophils (%) (Auto) 55.5 % Lymphocytes (%) (Auto) 29.7 % Monocytes (%) (Auto) 11.0 % Eosinophils (%) (Auto) 3.1 % Basophils (%) (Auto) 0.5 % Neutrophils # (Auto) 3.07 K/uL Lymphocytes # (Auto) 1.64 K/uL Monocytes # (Auto) 0.61 K/uL Eosinophils # (Auto) 0.17 K/uL Basophils # (Auto) 0.03 K/uL RDW Standard Deviation 47.7 fL RDW Coefficient of Variation 13.0 % Immature Granulocyte % (Auto) 0.2 % Immature Granulocyte # (Auto) 0.01 K/uL Prothrombin Time 12.5 SECONDS Prothromb Time International Ratio 1.2 Activated Partial Thromboplast Time 27.4 SECONDS Partial Thromboplastin Ratio 1.1 Sodium Level 137 mmol/L Potassium Level 4.1 mmol/L Chloride Level 105 mmol/L Carbon Dioxide Level 27 mmol/L Anion Gap 5.0 mmol/L Blood Urea Nitrogen 18 mg/dl Creatinine 0.86 mg/dl Est Creatinine Clear Calc Drug Dose 67.7 ml/min Estimated GFR () 76.1 Estimated GFR (Non- 65.6 BUN/Creatinine Ratio 21.4 Random Glucose 99 mg/dl Estimated Average Glucose 108 mg/dl Hemoglobin A1c 5.4 % Calcium Level 8.2 mg/dl Magnesium Level 2.0 mg/dl Total Bilirubin 0.5 mg/dl Direct Bilirubin 0.2 mg/dl Aspartate Amino Transf (AST/SGOT) 25 U/L Alanine Aminotransferase (ALT/SGPT) 23 U/L Alkaline Phosphatase 64 U/L Total Creatine Kinase 45 U/L Creatine Kinase MB < 1.0 ng/ml Creatine Kinase MB Ratio Troponin I < 0.015 ng/ml < 0.015 ng/ml Total Protein 7.0 gm/dl Albumin 3.3 gm/dl Thyroid Stimulating Hormone (TSH) 1.930 uIu/ml Bedside Glucose 83 mg/dl Urine Color YELLOW Urine Appearance CLEAR Urine pH 6.5 Urine Specific [place] 1.019 Urine Protein NEG Urine Glucose (UA) NEG Urine Ketones TRACE Urine Occult Blood NEG Urine Nitrite NEG Urine Bilirubin NEG Urine Urobilinogen NEG Urine Leukocyte Esterase MODERATE Urine WBC (Auto) 5-10 /hpf Urine RBC (Auto) 0-4 /hpf Urine Hyaline Casts (Auto) 0 /lpf Urine Epithelial Cells (Auto) >30 /lpf Urine Bacteria (Auto) 1+ Test 06/17/18 20:46 06/18/18 00:20 06/18/18 05:39 06/18/18 07:21 Bedside Glucose 91 mg/dl 87 mg/dl Troponin I < 0.015 ng/ml White Blood Count 5.00 K/uL Red Blood Count 4.26 M/uL Hemoglobin 14.2 g/dL Hematocrit 42.6 % Mean Corpuscular Volume 100.0 fL Mean Corpuscular Hemoglobin 33.3 pg Mean Corpuscular Hemoglobin Concent 33.3 g/dl RDW Standard Deviation 47.7 fL RDW Coefficient of Variation 13.1 % Platelet Count 161 K/uL Mean Platelet Volume 11.7 fL Prothrombin Time 12.2 SECONDS Prothromb Time International Ratio 1.2 Sodium Level 141 mmol/L Potassium Level 3.8 mmol/L Chloride Level 109 mmol/L Carbon Dioxide Level 26 mmol/L Anion Gap 6.0 mmol/L Blood Urea Nitrogen 14 mg/dl Creatinine 0.70 mg/dl Est Creatinine Clear Calc Drug Dose 83.2 ml/min Estimated GFR () 97.5 Estimated GFR (Non- 84.2 BUN/Creatinine Ratio 19.5 Random Glucose 85 mg/dl Calcium Level 7.8 mg/dl Triglycerides Level 106 mg/dl Cholesterol Level 100 mg/dl HDL Cholesterol 34 mg/dl LDL Cholesterol, Calculated 45 mg/dl VLDL Cholesterol, Calculated 21 mg/dl Cholesterol/HDL Ratio 2.9 EKGs are as described above. Admission chest x-ray showed no acute process. Continuous telemetry monitoring reveals atrial fibrillation with intermittent ventricular pacing. Rates are typically in the 60-70 bpm range. There is occasional inappropriate atrial pacemaker activity. (Rod Nguyen PA-C) Assessment & Plan Left shoulder/arm discomfort suggestive of musculoskeletal etiology. Atypical for cardiac etiology. EKGs are without acute change (the abnormal EKG this admission when not paced is similar to her EKG from July 26, 2016. Troponin negative 3. History of alcohol induced cardiomyopathy, sudden cardiac in December 2004 ; status post ICD implant Chronic atrial fibrillation. Rate controlled. Inappropriate atrial pacemaker activity noted on EKG and telemetry. Chronic Coumadin therapy. Subtherapeutic INR on presentation Normal coronary arteries by cardiac catheterization December 2014. Hypertension Dyslipidemia Depression Suspected underlying sleep apnea. Recommendations: Resting echocardiography Device ([employer] pacemaker defibrillator) interrogation, RE Inappropriate atrial pacing. Bilateral carotid duplex, RE: Right carotid bruit + left arm numbness. Noncontrast CT scan of the head and cervical spine, RE: Left arm numbness, cervical neck discomfort/radiculopathy. Outpatient stress testing, Re: Chronic stable exertional dyspnea, abnormal EKG dating back to July 2016, risk factors Recommend outpatient evaluation for probable underlying sleep apnea Abstaining from alcohol and further evaluation of depression recommended as well. (Rod Nguyen PA-C) Cardiology Attending Physician: Patient seen and examined at the bedside. Neck and shoulder discomfort has improved, however, remains somewhat reproducible with palpation and leftward rotation. Cardiac enzymes are undetectable. Resting 2D transthoracic echocardiogram demonstrates borderline LV systolic dysfunction with qualitative ejection fraction of 50%. This is similar to prior echocardiogram from 2016. Patient admits to excessive alcohol intake last month. She understands with her history of alcoholic cardiomyopathy she is to abstain from any alcohol intake. She has been lost to cardiology follow-up for nearly 2 years. Denies any chest discomfort or unusual shortness of breath. No edema, or paroxysmal nocturnal dyspnea, or orthopnea. PE: VSS. Gen: NAD, obese, AAO x 3. Heart: Irregular, normal S1, S2. No murmur. Lungs: Clear bilateral, no rales, rhonchi, wheeze. Extremities: No edema. Musculoskeletal: Cervical paravertebral musculature tenderness to palpation. Mild trapezius tenderness to palpation on the left side with restricted left cervical rotation. A/P: Agree with above PA-C history, physical exam, assessment and plan. No evidence of acute coronary syndrome. Symptoms appear to be musculoskeletal in origin. ICD interrogation reviewed /discussed with [employer] field technician revealing chronic atrial fibrillation with occasional atrial undersensing accounting for inappropriate atrial spike noted on ECG. Continue Coumadin for goal INR of 2.0-3.0. I strongly recommend the patient abstain from any future alcohol intake. Discussed importance of compliance with clinical follow-ups as well as ICD interrogations. Patient voiced understanding and agreement. Thank you for allowing us to participate in the care of your patient. Tanvir Hartley DO, FACC (Epifanio Hartley DO)
[2018-06-18 11:40] VITALS: BP 152/92; PULSE 80; TEMP 36.4; O2SAT 95
--- NOTE | 2018-06-18 13:17 | DIAGNOSTIC IMAGING REPORT ---
CT SCAN OF THE BRAIN WITHOUT IV CONTRAST CLINICAL HISTORY: Left upper extremity numbness COMPARISON STUDY: No priors. TECHNIQUE: Unenhanced axial CT scan of the brain is performed from the vertex to the skull base. A dose lowering technique was utilized adhering to the principles of ALARA. CT DOSE: 1076.51 mGy.cm FINDINGS: Brain parenchyma: There are age-related involutional changes noting mild subcortical and periventricular microangiopathic change. There is no hemorrhage, mass effect, or evidence of acute territorial ischemia by CT criteria. Bhatia-white matter is preserved. No extra-axial fluid collection is seen. Ventricles, sulci, cisterns: Prominent secondary to involutional change. Intracranial vasculature: There is atherosclerotic calcification of the cavernous carotid and vertebral arteries. Calvarium: Unremarkable. Sinuses and mastoids: The visualized paranasal sinuses are clear. The mastoid air cells are well pneumatized. Orbits: The bony orbits are grossly intact. IMPRESSION: There is no hemorrhage, mass effect, or evidence of acute territorial ischemia by CT criteria. Electronically signed by: Dany Grimm M.D. 06/18/2018 1:15 PM Dictated Date/Time: 06/18/2018 1:13 PM
--- NOTE | 2018-06-18 13:35 | DIAGNOSTIC IMAGING REPORT ---
CT SCAN OF THE CERVICAL SPINE CLINICAL HISTORY: Cervicalgia. COMPARISON STUDY: No priors. TECHNIQUE: CT scan of the cervical spine is performed from the skull base to the upper thoracic spine. Images are reviewed in the axial, sagittal, and coronal planes. IV contrast was not administered for this examination. A dose lowering technique was utilized adhering to the principles of ALARA. FINDINGS: Skeletal structures: The skeletal structures are osteopenic. There is no evidence of fracture or subluxation involving the cervical spine. Vertebral body height and alignment are maintained. Anterior osteophytes are seen throughout. There is straightening of the cervical lordosis The odontoid process and lateral masses are intact. The atlantoaxial articulation is preserved noting mild productive degenerative change. The spinous processes appear intact. There is moderate multilevel cervical spondylosis. Uncovertebral and facet arthropathy contribute to neural foraminal stenosis at several levels. This is severe on the left at C3-C4, C4-C5 and on the right at C3-C4, C4-C5, and C5-C6. Intervertebral discs: There is advanced disc space narrowing at C5-C6 and C6-C7. Moderate to advanced disc space narrowing seen at C3-C4 and C4-C5. Central canal: Posterior disc osteophyte complexes from C4-C5 through C6-C7 likely contribute to acquired compromise of the central canal. Soft tissues: The prevertebral and paraspinous soft tissues are within normal limits. There is atherosclerotic calcification of the carotid bulbs. Pacemaker leads are noted in the left axilla. Calvarium: The visualized calvarium at the skull base appears intact. Brain parenchyma: Partially visualized brain parenchyma the skull base is within normal limits. Sinuses and mastoids: The visualized paranasal sinuses are clear. The mastoid air cells are well pneumatized. Lung apices: Clear as visualized. IMPRESSION: 1. There is no evidence of fracture or subluxation involving the cervical spine. 2. Osteopenia and multilevel spondylosis as above. Electronically signed by: Dany Grimm M.D. 06/18/2018 1:33 PM Dictated Date/Time: 06/18/2018 1:18 PM
--- NOTE | 2018-06-18 14:03 | ECHOCARDIOGRAM REPORT ---
*NOTICE TO RECEIVING REPUBLICAN AGENCY This information is strictly Confidential and protected under [place] law. [place] law prohibits you from making any further disclosure of this information unless further disclosure is expressly permitted by the written consent of the person to whom it pertains or is authorized by law. A general authorization for the release of medical or other information is not sufficient for this purpose. Hospital accepts no responsibility if the information is made available to any other person, INCLUDING THE PATIENT. Interpretation Summary * The study was technically adequate. * There is no comparison study available. * -- Conclusions -- * Left ventricular systolic function is borderline reduced. * The qualitative ejection fraction is 50%. * There is mild tricuspid regurgitation. * Doppler findings do not suggest pulmonary hypertension. Procedure Details * A complete two-dimensional transthoracic echocardiogram was performed (2D, M-mode, Doppler and color flow Doppler). Left Ventricle * The left ventricle is normal in size. * There is no thrombus. * There is normal left ventricular wall thickness. * Left ventricular systolic function is borderline reduced. * The qualitative ejection fraction is 50%. * No regional wall motion abnormalities noted. Right Ventricle * The right ventricle is normal size. * There is a catheter in the right ventricle. * The right ventricular systolic function is normal as assessed by tricuspid annular plane systolic excursion (TAPSE) (normal >1.5 cm). Atria * The left atrium is moderately dilated. * Right atrial size is normal. * There is no evidence of atrial septal defect, but resolution does not allow assessment for a patent foramen ovale. Mitral Valve * The mitral valve is normal. * There is no mitral valve stenosis. * There is trace mitral regurgitation. Tricuspid Valve * The tricuspid valve is normal. * There is no tricuspid stenosis. * There is mild tricuspid regurgitation. * Doppler findings do not suggest pulmonary hypertension. Aortic Valve * The aortic valve is trileaflet. * Aortic stenosis is absent. * Trace aortic regurgitation. Pulmonic Valve * The pulmonary valve is not well seen, but the Doppler examination is normal without significant regurgitation or stenosis. Great Vessels * The aortic root and proximal ascending aorta are normal sized. Pericardium/Pleural * There is no pericardial effusion. Great Vessels * Normal inferior vena cava size and collapsability with sniff indicates a normal right atrial pressure of 3 mmHg Left Ventricular Diastolic Function * Pulse wave TDI of the anterior and posterior mitral annulas demonstrates abnormal LV relaxation MMode 2D Measurements and Calculations IVSd 0.99 cm IVSs 1.2 cm LVIDd 4.9 cm LVIDs 3.7 cm LVPWd 1.2 cm LVPWs 1.3 cm IVS/LVPW 0.83 FS 24.3 % EDV(Teich) 115.2 ml ESV(Teich) 59.7 ml EF(Teich) 48.2 % EDV(cubed) 120.9 ml ESV(cubed) 52.4 ml EF(cubed) 56.6 % % IVS thick 21.0 % % LVPW thick 9.6 % LV mass(C)d 199.2 grams LV mass(C)dI 94.6 grams/m\S\2 LV mass(C)s 158.1 grams LV mass(C)sI 75.1 grams/m\S\2 SV(Teich) 55.5 ml SI(Teich) 26.4 ml/m\S\2 SV(cubed) 68.5 ml SI(cubed) 32.5 ml/m\S\2 Ao root diam 3.3 cm Ao root area 8.3 cm\S\2 ACS 1.6 cm LA dimension 4.6 cm LA/Ao 1.4 LVAd ap4 28.5 cm\S\2 LVLd ap4 7.6 cm EDV(MOD-sp4) 86.7 ml EDV(sp4-el) 90.3 ml LVAs ap4 18.5 cm\S\2 LVLs ap4 7.0 cm ESV(MOD-sp4) 40.7 ml ESV(sp4-el) 41.4 ml EF(MOD-sp4) 53.0 % EF(sp4-el) 54.1 % EDV(MOD-sp2) 102.0 ml ESV(MOD-sp2) 44.0 ml EF(MOD-sp2) 56.9 % SV(MOD-sp4) 46.0 ml SI(MOD-sp4) 21.8 ml/m\S\2 SV(MOD-sp2) 58.0 ml SI(MOD-sp2) 27.5 ml/m\S\2 SV(sp4-el) 48.9 ml SI(sp4-el) 23.2 ml/m\S\2 Doppler Measurements and Calculations MV E max anabell 113.2 cm/sec MV P1/2t max anabell 116.5 cm/sec MV P1/2t 61.0 msec MVA(P1/2t) 3.6 cm\S\2 MV dec slope 559.1 cm/sec\S\2 MV dec time 0.21 sec Ao V2 max 130.5 cm/sec Ao max PG 6.8 mmHg Ao max PG (full) 4.6 mmHg AI max anabell 366.0 cm/sec AI max PG 53.6 mmHg AI dec slope 113.7 cm/sec\S\2 AI P1/2t 942.5 msec LV V1 max PG 2.2 mmHg LV V1 max 74.4 cm/sec PA V2 max 77.2 cm/sec PA max PG 2.4 mmHg TR max anabell 257.2 cm/sec
--- NOTE | 2018-06-18 14:19 | DIAGNOSTIC IMAGING REPORT ---
BILATERAL CAROTID DOPPLER STUDY HISTORY: left arm numbness COMPARISON: None. TECHNIQUE: Real-time, grayscale, and color Doppler sonography of the carotid arteries was performed. Imaging reviewed in the transverse and longitudinal planes. All measurements were calculated based on NASCET criteria. FINDINGS: Antegrade flow is seen in the bilateral vertebral arteries. The patient was unable to tolerate brachial pressures. Mild calcified plaque within the proximal left internal carotid artery. The peak systolic velocity within the right ICA is 62 cm/s. The right systolic ratio is 0.9. The peak systolic velocity within the left ICA is 83 cm/s. The left systolic ratio is 1.5. IMPRESSION: No hemodynamically significant stenosis seen within the carotid arteries. Electronically signed by: Reese Zeng M.D. 06/18/2018 2:18 PM Dictated Date/Time: 06/18/2018 2:17 PM
[2018-06-18] MEDS ORDERED: GABAPENTIN 100 MG CAP PO ONE (14:45)
[2018-06-18 15:22] VITALS: BP 151/78; PULSE 76; TEMP 36.5; O2SAT 94
[2018-06-18] MEDS ORDERED: WARFARIN SOD 4 MG TAB PO SCH (16:00)
[2018-06-18] MEDS ORDERED: WARFARIN SOD 2 MG TAB PO SCH (16:00)
[2018-06-18 16:09] VITALS: O2SAT 94
[2018-06-18] MEDS: ENOXAPARIN 40 MG/0.4 ML SYR SQ SCH (17:30)
[2018-06-18] MEDS ORDERED: NRN100 PO (17:57)
[2018-06-18] MEDS ORDERED: TRAZ100T29 PO (17:57)
--- NOTE | 2018-06-18 18:02 | Discharge Instructions ---
Discharge Instructions Date of Service Jun 18, 2018. Admission Reason for Admission: Left Arm Numbness, Shoulder Pain Discharge Discharge Diagnosis / Problem: LEFT SHOULDER PAIN AND NUMBNESS Discharge Goals Goal(s): Diagnostic testing, Therapeutic intervention Activity Recommendations Activity Limitations: as noted below (NO HEAVY EXERTION UNTIL RE-EVALUATED BY PRIMARY CARE PHYSICIAN) Lifting Limitations: until after follow-up appointment Exercise/Sports Limitations: until after follow-up appointment Driving or Machine Use: NO DRIVING UNTIL RE-EVALUATED BY DR. HARRY ON FOLLOW UP . Instructions / Follow-Up Instructions / Follow-Up PLEASE REVIEW YOUR NEW MEDICATION LIST AND FOLLOW INSTRUCTIONS CAREFULLY. CALL YOUR PRIMARY CARE PHYSICIAN OR RETURN TO ER IMMEDIATELY IF WITH RECURRENCE OR WORSENING OF SYMPTOMS. NO DRIVING UNTIL RE-EVALUATED BY DR. HARRY. FOLLOW UP WITH DR. HARRY THIS COMING Monday06/22/18. Current Hospital Diet Patient's current hospital diet: AHA Diet (Heart Healthy), Diabetes Type 2 Diet Discharge Diet Recommended Diet: AHA Diet (Heart Healthy), Diabetes Type 2 Diet Procedures Procedures Performed: CT HEAD, CT CERVICAL SPINE Pending Studies Studies pending at discharge: no Laboratory Results Hemoglobin A1c Test 06/17/18 12:00 Range/Units Estimated Average Glucose 108 mg/dl Hemoglobin A1c 5.4 4.5-5.6 % Lipid Panel Test 06/18/18 05:39 Range/Units Triglycerides Level 106 0-150 mg/dl Cholesterol Level 100 0-200 mg/dl HDL Cholesterol 34 mg/dl Cholesterol/HDL Ratio 2.9 LDL Cholesterol, Calculated 45 mg/dl Medical Emergencies . Who to Call and When: Medical Emergencies: If at any time you feel your situation is an emergency, please call 911 immediately. . Non-Emergent Contact Non-Emergency issues call your: Primary Care Provider Call Non-Emergent contact if: you have a fever, your pain is not controlled, your pain is worsening, your pain is unusual for you, your pain is concerning you, you have any medication questions . . "Provider Documentation" section prepared by Everett Castro. .
[2018-06-18 18:14] VITALS: BP 151/78; PULSE 76; TEMP 36.5; O2SAT 94
[2018-06-18] MEDS ORDERED: GABAPENTIN 100 MG CAP PO SCH (21:00)
--- NOTE | 2018-06-19 21:22 | Discharge Summary ---
Discharge Summary Date of Service Jun 19, 2018. Discharge Summary Admission Date: Jun 17, 2018 at 14:44 Discharge Date: Jun 18, 2018 Discharge Disposition: Home Principal Diagnosis: LEFT SHOULDER PAIN/LEFT ARM NUMBNESS; ACUTE CORONARY SYNDROME RULED OUT Secondary Diagnoses/Problems: Please refer to hospital course below Procedures: CT SCAN OF THE BRAIN WITHOUT IV CONTRAST CLINICAL HISTORY: Left upper extremity numbness COMPARISON STUDY: No priors. TECHNIQUE: Unenhanced axial CT scan of the brain is performed from the vertex to the skull base. A dose lowering technique was utilized adhering to the principles of ALARA. CT DOSE: 1076.51 mGy.cm FINDINGS: Brain parenchyma: There are age-related involutional changes noting mild subcortical and periventricular microangiopathic change. There is no hemorrhage, mass effect, or evidence of acute territorial ischemia by CT criteria. Bhatia-white matter is preserved. No extra-axial fluid collection is seen. Ventricles, sulci, cisterns: Prominent secondary to involutional change. Intracranial vasculature: There is atherosclerotic calcification of the cavernous carotid and vertebral arteries. Calvarium: Unremarkable. Sinuses and mastoids: The visualized paranasal sinuses are clear. The mastoid air cells are well pneumatized. Orbits: The bony orbits are grossly intact. IMPRESSION: There is no hemorrhage, mass effect, or evidence of acute territorial ischemia by CT criteria. CT SCAN OF THE CERVICAL SPINE CLINICAL HISTORY: Cervicalgia. COMPARISON STUDY: No priors. TECHNIQUE: CT scan of the cervical spine is performed from the skull base to the upper thoracic spine. Images are reviewed in the axial, sagittal, and coronal planes. IV contrast was not administered for this examination. A dose lowering technique was utilized adhering to the principles of ALARA. FINDINGS: Skeletal structures: The skeletal structures are osteopenic. There is no evidence of fracture or subluxation involving the cervical spine. Vertebral body height and alignment are maintained. Anterior osteophytes are seen throughout. There is straightening of the cervical lordosis The odontoid process and lateral masses are intact. The atlantoaxial articulation is preserved noting mild productive degenerative change. The spinous processes appear intact. There is moderate multilevel cervical spondylosis. Uncovertebral and facet arthropathy contribute to neural foraminal stenosis at several levels. This is severe on the left at C3-C4, C4-C5 and on the right at C3-C4, C4-C5, and C5-C6. Intervertebral discs: There is advanced disc space narrowing at C5-C6 and C6-C7. Moderate to advanced disc space narrowing seen at C3-C4 and C4-C5. Central canal: Posterior disc osteophyte complexes from C4-C5 through C6-C7 likely contribute to acquired compromise of the central canal. Soft tissues: The prevertebral and paraspinous soft tissues are within normal limits. There is atherosclerotic calcification of the carotid bulbs. Pacemaker leads are noted in the left axilla. Calvarium: The visualized calvarium at the skull base appears intact. Brain parenchyma: Partially visualized brain parenchyma the skull base is within normal limits. Sinuses and mastoids: The visualized paranasal sinuses are clear. The mastoid air cells are well pneumatized. Lung apices: Clear as visualized. IMPRESSION: 1. There is no evidence of fracture or subluxation involving the cervical spine. 2. Osteopenia and multilevel spondylosis as above. BILATERAL CAROTID DOPPLER STUDY IMPRESSION: No hemodynamically significant stenosis seen within the carotid arteries. Consultations: Produce Department Supervisor Dr. Hartley, ARUNA Nguyen Pending Studies/Follow-Up: Please refer to hospital course below. Medication Reconciliation New Medications: Gabapentin (Gabapentin) 100 Mg Cap 100 MG PO TID for 7 Days, #21 CAP 0 Refills Changed Medications: Trazodone Hcl (Trazodone) 100 Mg Tab 50 MG PO HS for 7 Days, TAB (Changed from: 100 MG) Continued Medications: Cholecalciferol (Vitamin D 1000 Unit) 1,000 Unit Cap 1000 INTER.UNIT PO QAM, CAP Cyanocobalamin (Vitamin B12) 1,000 Mcg Tab 1 TAB PO QAM Fluoxetine HCl (Fluoxetine HCl) 20 Mg Cap 20 MG PO BID Hydrochlorothiazide (Hctz) 50 Mg Tab 0.25 TAB PO DAILY PRN for swelling for 30 Days, #8 TAB 5 Refills Hydrocodone-Acetaminophen (Hydrocodone/Acetaminophen) 1 Tab Tab 1 TAB PO BID PRN for Pain 5/500 Levothyroxine Sodium (Levothyroxine Sodium) 125 Mcg Tab 125 MG PO DAILY Losartan Potassium (Losartan Potassium) 25 Mg Tab 25 MG PO DAILY Magnesium Oxide (Mg Supplement (Magnesium Oxide) 400 Mg Tab 1 TAB PO BID Melatonin (Melatonin Maximum Strengt) 5 Mg Tab 1 TAB PO HS for 30 Days, #30 TAB Metformin Hcl (Glucophage) 500 Mg Tab 1 TAB PO DAILY AFTER LUNCH, TAB Metoprolol Succinate (Metoprolol Succinate ER) 100 Mg Tabcr 100 MG PO DAILY Potassium Chloride (K-Tabs) 10 Meq Tab 10 MEQ PO DAILY Ranitidine Hcl (Zantac) 150 Mg Tab 150 MG PO BID PRN for Dyspepsia, TAB Simvastatin (Zocor) 20 Mg Tab 20 MG PO QPM, TAB Warfarin Sod (Jantoven) 2 Mg Tab 2 MG PO MoFr Warfarin Sod (Jantoven) 2 Mg Tab 4 MG PO SuTuWeThSa, TAB Admission Information HPI (per Admitting provider): 78-year-old female who presents to the ED with left shoulder pain and left arm numbness. Patient reports she was awoken early this morning with the symptoms. Patient also notes that over the past few days she has been having some neck pain and stiffness. She reports the left shoulder pain lasted for about 1 hour however the left arm numbness/tingling still persists. She denies associated chest pain or shortness of breath. No associated diaphoresis, lightheadedness, nausea. Patient has chronic exertional shortness of breath which is unchanged from baseline. She has chronic lower extremity edema which is unchanged from baseline as well. She denies abdominal pain, vomiting, diarrhea. No other recent illnesses, fevers, chills. She denies any urinary symptoms. In the ED, patient's EKG demonstrates a paced rhythm and initial troponin is negative. Patient was hypertensive with BP as high as 171/103. 1/2 inch of topical nitroglycerin paste was placed on the patient. Physical Exam (per Admitting): General Appearance: WD/WN, no apparent distress Head: normocephalic, atraumatic Eyes: normal inspection, PERRL, EOMI, sclerae normal ENT: hearing grossly normal, + pertinent finding (Mucous members moist) Neck: supple, no JVD, trachea midline Respiratory/Chest: lungs clear, normal breath sounds, no respiratory distress Cardiovascular: normal peripheral pulses, + irregularly irregular (Rate controlled), + pertinent finding (Trace edema BLE) Abdomen/GI: normal bowel sounds, non tender, soft, no organomegaly Extremities/Musculoskelatal: normal inspection, no calf tenderness, normal capillary refill Neurologic/Psych: no motor/sensory deficits, alert, normal mood/affect, oriented x 3 Skin: normal color, warm/dry Hospital Course LEFT SHOULDER PAIN/LEFT ARM NUMBNESS ACUTE CORONARY SYNDROME RULED OUT HISTORY OF SUDDEN CARDIAC S/P ICD Troponins negative EKG no signs of ischemia AICD interrogation performed Echo * -- Conclusions -- * Left ventricular systolic function is borderline reduced. * The qualitative ejection fraction is 50%. * There is mild tricuspid regurgitation. * Doppler findings do not suggest pulmonary hypertension. Cardiology consulted No other further cardiac workup at this time LEFT SHOULDER PAIN, NUMBNESS POSSIBLY FROMCERVICAL RADICULOPATHY CT cervical spine ordered : Full report noted above Skeletal structures: The skeletal structures are osteopenic. There is no evidence of fracture or subluxation involving the cervical spine. Vertebral body height and alignment are maintained. Anterior osteophytes are seen throughout. There is straightening of the cervical lordosis The odontoid process and lateral masses are intact. The atlantoaxial articulation is preserved noting mild productive degenerative change. The spinous processes appear intact. There is moderate multilevel cervical spondylosis. Uncovertebral and facet arthropathy contribute to neural foraminal stenosis at several levels. This is severe on the left at C3-C4, C4-C5 and on the right at C3-C4, C4-C5, and C5-C6. patient reports she develops significant edema with Prednisone Gabapentin 100 mg 3 times daily started Monitor HYPERTENSIVE URGENCY Improvement -Continue losartan, metoprolol ATRIAL FIBRILLATION -Rate controlled on beta-ludwig, will continue -Anticoagulated on Coumadin, INR 1.2 -outpatient dose of Coumadin was not increased secondary to a planned teeth extraction - continue usual coumadin Follow-up with Coumadin clinic DM TYPE II -Hgb A1c 5.4 06/2018 Continue metformin HYPOTHYROIDISM -Continue levothyroxine Discharge to home Follow up with primary care physician in 3-5 days. Total time spent on discharge = This includes examination of the patient, discharge planning, medication reconciliation, and communication with other providers. Discharge Instructions Discharge Instructions Date of Service Jun 18, 2018. Admission Reason for Admission: Left Arm Numbness, Shoulder Pain Discharge Discharge Diagnosis / Problem: LEFT SHOULDER PAIN AND NUMBNESS Discharge Goals Goal(s): Diagnostic testing, Therapeutic intervention Activity Recommendations Activity Limitations: as noted below (NO HEAVY EXERTION UNTIL RE-EVALUATED BY PRIMARY CARE PHYSICIAN) Lifting Limitations: until after follow-up appointment Exercise/Sports Limitations: until after follow-up appointment Driving or Machine Use: NO DRIVING UNTIL RE-EVALUATED BY DR. HARRY ON FOLLOW UP . Instructions / Follow-Up Instructions / Follow-Up PLEASE REVIEW YOUR NEW MEDICATION LIST AND FOLLOW INSTRUCTIONS CAREFULLY. CALL YOUR PRIMARY CARE PHYSICIAN OR RETURN TO ER IMMEDIATELY IF WITH RECURRENCE OR WORSENING OF SYMPTOMS. NO DRIVING UNTIL RE-EVALUATED BY DR. HARRY. FOLLOW UP WITH DR. HARRY THIS COMING Monday06/22/18. Current Hospital Diet Patient's current hospital diet: AHA Diet (Heart Healthy), Diabetes Type 2 Diet Discharge Diet Recommended Diet: AHA Diet (Heart Healthy), Diabetes Type 2 Diet Procedures Procedures Performed: CT HEAD, CT CERVICAL SPINE Pending Studies Studies pending at discharge: no Laboratory Results Hemoglobin A1c Test 06/17/18 12:00 Range/Units Estimated Average Glucose 108 mg/dl Hemoglobin A1c 5.4 4.5-5.6 % Lipid Panel Test 06/18/18 05:39 Range/Units Triglycerides Level 106 0-150 mg/dl Cholesterol Level 100 0-200 mg/dl HDL Cholesterol 34 mg/dl Cholesterol/HDL Ratio 2.9 LDL Cholesterol, Calculated 45 mg/dl Medical Emergencies . Who to Call and When: Medical Emergencies: If at any time you feel your situation is an emergency, please call 911 immediately. . Non-Emergent Contact Non-Emergency issues call your: Primary Care Provider Call Non-Emergent contact if: you have a fever, your pain is not controlled, your pain is worsening, your pain is unusual for you, your pain is concerning you, you have any medication questions . . "Provider Documentation" section prepared by Everett Castro. .
== END 2018-06-18 18:21 | disposition home or self-care (01) ==
LOC: C.EDB 11:41 → C.2E 14:44 → ENRESERV 15:01
PROVIDERS: ADMIT Hospitalist; ATTEND Internal Medicine
DX: M25.512 Pain in left shoulder (principal); R20.0 Anesthesia of skin; I48.2 Chronic atrial fibrillation; I42.6 Alcoholic cardiomyopathy; I10 Essential (primary) hypertension; E78.5 Hyperlipidemia, unspecified; E11.9 Type 2 diabetes mellitus without complications; E03.9 Hypothyroidism, unspecified; F32.9 Major depressive disorder, single episode, unspecified; K21.9 Gastro-esophageal reflux disease without esophagitis; M19.90 Unspecified osteoarthritis, unspecified site; Z86.74 Personal history of sudden cardiac arrest; Z79.01 Long term (current) use of anticoagulants; Z96.653 Presence of artificial knee joint, bilateral; Z90.49 Acquired absence of other specified parts of digestive tract; Z90.710 Acquired absence of both cervix and uterus; Z90.722 Acquired absence of ovaries, bilateral; Z90.79 Acquired absence of other genital organ(s); Z88.5 Allergy status to narcotic agent; Z88.0 Allergy status to penicillin; Z95.810 Presence of automatic (implantable) cardiac defibrillator

== ENCOUNTER 2019-10-02 09:01 | Observation (INO) ==
[2019-10-02] MEDS ORDERED: SODIUM CHLORIDE 0.9% 1000ML 1,000 ML IV SCH ×2 (09:45→14:50)
[2019-10-02] MEDS ORDERED: SODIUM CHLORIDE 0.9% 500 ML IV SCH (09:45)
--- NOTE | 2019-10-02 10:03 | XRay Report ---
SINGLE VIEW CHEST CLINICAL HISTORY: Generalized weakness. FINDINGS: An AP, portable, upright chest radiograph is compared to study dated 06/17/2018. The examinat ion is degraded by portable technique and patient rotation. A 3-lead cardiac AICD is unchanged in pos ition and partially obscures the left upper chest. The heart is enlarged noting atherosclerotic calci fication of the thoracic aorta. The pulmonary vasculature is noncongested. There is bibasilar atelect asis. No airspace consolidation or large pleural effusion is identified. No pneumothorax is seen. The skeletal structures are osteopenic. The bony thorax is grossly intact. IMPRESSION: 1. Cardiomegaly and AICD. There is no radiographic evidence of congestive failure. 2. No airspace consolidation or large pleural effusion is identified. Electronically signed by: Dany Grimm M.D. 10/02/2019 10:01 AM
[2019-10-02 10:11] LABS: Basophils # (auto) 0.01 K/uL (0-0.2); Basophils % (auto) 0.1 %; Eosinophils # (auto) 0.08 K/uL (0-0.5); Eosinophils % (auto) 0.8 %; Hematocrit (blood only) 42.4 % (37-47); Hemoglobin 14.3 g/dL (12.0-16.0); Immature Granulocytes # (auto) 0.02 K/uL (0.00-0.02); Immature Granulocytes % (auto) 0.2 %; Lymphocytes # (auto) 1.26 K/uL (1.2-3.4); Mean Corpuscular Hemoglobin 30.6 pg (25-34); Mean Corpuscular Hgb Conc 33.7 g/dL (32-36); Mean Corpuscular Volume 90.8 fL (80-100); Mean Platelet Volume 10.5 fL (7.4-10.4); Monocytes # (auto) 0.71 K/uL (0.11-0.59); Monocytes % (auto) 6.8 %; Neutrophils # (auto) 8.42 K/uL (1.4-6.5); Neutrophils % (auto) 80.1 %; Platelet Count 185 K/uL (130-400); RDW Coefficient of Variation 13.2 % (11.5-14.5); RDW Standard Deviation 43.4 fL (36.4-46.3); Red Blood Count 4.67 M/uL (4.2-5.4)
[2019-10-02 10:44] LABS: Alanine Aminotransferase 21 U/L (12-78); Albumin Level 2.9 gm/dl (3.4-5.0); Alkaline Phosphatase 64 U/L (45-117); BUN Creatinine Ratio 14.1 (10-20); Blood Urea Nitrogen 12 mg/dl (7-18); Calcium 8.9 mg/dl (8.5-10.1); Carbon Dioxide 26 mmol/L (21-32); Chloride 104 mmol/L (98-107); Creatinine Clr Calc Pharmacy 64.6 ml/min; Est GFR (African American) 73.5; Est GFR (Non-African American) 63.4; Globulin 3.9 gm/dl (2.5-4.0); Glucose 118 mg/dl (70-99); Thyroid Stimulating Hormone 0.169 uIu/ml (0.300-4.500); Total Protein 6.8 gm/dl (6.4-8.2); Troponin I < 0.015 ng/ml (0-0.045)
[2019-10-02 10:45] LABS: Albumin Globulin Ratio 0.7 (0.9-2); Potassium 3.7 mmol/L (3.5-5.1); Sodium 139 mmol/L (136-145)
[2019-10-02 10:45] LABS: Appearance Urine Clear (Clear); Bilirubin Urine Negative (Negative); Blood Urine Negative (Negative); Color Urine Dark Yellow; Glucose Urine UA Negative (Negative); Ketones Urine Negative (Negative); Leukocyte Esterase Urine Negative (Negative); Nitrite Urine Negative (Negative); Protein Urine Negative (Negative); Specific Gravity Urine 1.018 (1.000-1.030); Urobilinogen Urine Negative (Negative)
[2019-10-02 10:46] LABS: Aspartate Aminotransferase 25 U/L (15-37); Creatine Kinase 170 U/L (26-192); Magnesium 1.8 mg/dl (1.8-2.4)
[2019-10-02 11:11] LABS: T4 Free Thyroxine 1.28 ng/dl (0.8-1.6)
--- NOTE | 2019-10-02 11:19 | CT Scan Report ---
CT SCAN OF THE BRAIN WITHOUT IV CONTRAST CLINICAL HISTORY: Fall. COMPARISON STUDY: CT of the brain dated 06/18/2018. TECHNIQUE: Unenhanced axial CT scan of the brain is performed from the vertex to the skull base. A do se lowering technique was utilized adhering to the principles of ALARA. CT DOSE: 537.48 mGy.cm FINDINGS: Brain parenchyma: There are age-related involutional changes noting mild subcortical and periventric ular microangiopathic change. There is no hemorrhage, mass effect, or evidence of acute territorial i schemia by CT criteria. Bhatia-white matter differentiation is preserved. No extra-axial fluid collecti on is seen. Ventricles, sulci, cisterns: Prominent secondary to involutional change. Intracranial vasculature: There is atherosclerotic calcification of the cavernous carotid and vertebr al arteries. Calvarium: The skeletal structures are osteopenic. No depressed calvarial fracture is identified. Sinuses and mastoids: The visualized paranasal sinuses are clear. The mastoid air cells are well pneu matized. Orbits: The bony orbits are grossly intact. There are bilateral ocular lens implants. IMPRESSION: There is no hemorrhage, mass effect, or evidence of acute territorial ischemia by CT nitin guillory. Electronically signed by: Dany Grimm M.D. 10/02/2019 11:18 AM
--- NOTE | 2019-10-02 12:44 | History & Physical Report ---
Date of Service October 02, 2019 Assessment & Plan (1) Generalized weakness: (2) Fall: (3) Confusion: Mrs. Palomino is a 79 yr old F who has significant PMH of persistent afib anticoagulated on warfarin, hx of cardiac arrest/vifb s/p AICD, HTN, HLD, diet controlled T2DM, hypothyroidism, GERD, Depression, OADJD who presents to [facility] ED 2/ being found on bathroom floor by soon. In ED pt CBC, CMP and urinalysis relatively unremarkable. Her troponin, CK also WNL. TSH low at 0.[address] head/CXR negative for acute abnormality. Pt currently living at home alone with recent passing of Likely acute stress reaction playing a part with possible undiagnosed dementia exacerbated Also subtherapeutic INR ? if TIA Doubt any infection as wbc wnl, UA negative, afebrile - blood cultures pending admit to med/surg unable to do MRI given AICD place in IV heparin gtt due to subtherapeutic INR in event sx reflect TIA obtain b12, RPR, blood cultures r/o other cause PT/OT/ST Case management consult (4) Persistent atrial fibrillation: rate controlled on metoprolol anticoagulated with warfarin CHADSVASC [address] in IV heparin low dose no bolus - give 6mg x 1 today INR in a.m. to determine tomorrow dose per EPIC she is to be on 6mg Fri, 4mg all other days, but currently taking 2mg MoFr and 4mg all other days - likely reason subtherapeutic (5) Hypertension: blood pressure controlled continue metoprolol (6) DM type 2 (diabetes mellitus, type 2): reported hx of T2DM not on any prescribed meds A1C today 5.7 (7) Dyslipidemia: continue statin (8) ICD (implantable cardioverter-defibrillator) in place: interrogate given recent falls and poor historian (9) Hypothyroidism: TSH 0.169, free T4 1.28 continue levothyroxine (10) Depression: Continue prozac (11) DVT prophylaxis: IV heparin, warfarin, scd/teds Disposition: admit to Med/Surg, likely discharge tomorrow after eval by PT/OT/ST, case management and recommendations made Follow up: PCP Dr. Walker upon discharge Patient was seen and examined in collaboration with Dr. Gay, please see addendum History of Present Illness Chief Complaint: Fall x 2, mild increased confusion from baseline Primary Care Provider: Haile Walker Mrs. Palomino is a 79 yr old F who has significant PMH of persistent afib anticoagulated on warfarin, hx of cardiac arrest/vifb s/p AICD, HTN, HLD, diet controlled T2DM, hypothyroidism, GERD, Depression, OADJD who presents to [facility] ED 12/15 being found on bathroom floor by soon. It was noted pt was trying to make it to bathroom whenever she got weak and lowered herself to the ground. She was unable to get up and tried to crawl causing abrasion to L elbow. Son found her on floor and assisted her to her feet. She also had similar episode yesterday when trying to get off of toilet an was to weak; therefore lowered herself to the floor. Son felt when they found her on floor in bathroom today she was mildly more confused from baseline. Because of this they opted to bring her to ED for evaluation. Pt spouse recently 09/04/19 and she has been living alone since. Son and DIL live 1 mile away and have been checking on her frequently. Son helped her with pills this morning. They have meeting with office of aging to try to obtain services for patient including meals on wheels and potential director critical care. She denies any recent illness, f/c/s, dizziness, lightheaded, syncope, CASTANEDA, chest pain, palpitations, sob, n/v/d, abdominal pain, dysuria, increased urg/freq, hematuria, melena, hematochezia. She typically eats 1 meal a day and picks the rest of day. Frequent drinker of green tea but not much water intake. Denies intentional weight loss. Records reviewed from [facility] rec obtained from patient/son. In ED pt CBC, CMP and urinalysis relatively unremarkable. Her troponin, CK also WNL. TSH low at 0.[address] head/CXR negative for acute abnormality. Allergies Allergy/AdvReac Type Severity Reaction Status Date / Time clarithromycin Allergy Unknown Unknown Verified 10/02/19 14:33 codeine Allergy Unknown Unknown Verified 10/02/19 14:33 Corticosteroids AdvReac Intermediate BODY Verified 10/02/19 09:50 (Glucocorticoids) SWELLS UP morphine AdvReac Intermediate CONFUSION Verified 10/02/19 09:50 Home Medications Home Medications Medication Instructions Recorded Confirmed Type Anxiety & Stress Relief Tablet 1 tab PO QAM 10/02/19 10/02/19 History cholecalciferol (vitamin D3) 1,000 unit PO QAM 10/02/19 10/02/19 History [Vitamin D3] diclofenac sodium 2 g TOPICAL UD 10/02/19 10/02/19 History fluoxetine 40 mg PO QAM 10/02/19 10/02/19 History gabapentin 100 mg PO HS 10/02/19 10/02/19 History levothyroxine 125 mcg PO QAM 10/02/19 10/02/19 History metoprolol succinate 50 mg PO BID 10/02/19 10/02/19 History multivitamin with minerals 1 tab PO QAM 10/02/19 10/02/19 History [Hair,Skin and Nails] simvastatin 20 mg PO HS 10/02/19 10/02/19 History trazodone 50 mg PO BID 10/02/19 10/02/19 History warfarin [Jantoven] 2 mg PO MOFR 10/02/19 10/02/19 History warfarin [Jantoven] 4 mg PO SUTUWETHSA 10/02/19 10/02/19 History Past Med/Surg History Medical History Anxiety (Chronic) Depression (Chronic) DM type 2 (diabetes mellitus, type 2) (Chronic) Dyslipidemia (Chronic) Hypertension (Chronic) Hypothyroidism (Chronic) ICD (implantable cardioverter-defibrillator) in place (Chronic) Osteoarthritis (Chronic) Persistent atrial fibrillation (Chronic) Sudden cardiac (Chronic) Ventricular tachycardia (Chronic) Surgical History History of cataract surgery (Chronic) History of total left knee replacement (Chronic) History of total right knee replacement (Chronic) Hx of appendectomy (Chronic) Hx of cardiac cath (Chronic) "2004-demonstrated normal coronary arteries" S/P right knee arthroscopy (Chronic) S/P KATHLEEN-BSO (Chronic) Family History (Updated 10/02/19 @ 12:41 by Sofie Peguero PA-C) Father Diabetes Mother Diabetes Social History (Updated 10/02/19 @ 12:42 by Sofie Peguero PA-C) Preferred Language: Armenian Communication Ability: Effective 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 Beliefs That Will Affect Care: None marital status: / Current Living Situation: Alone Other Information That Helps Us Care for You: No Feels Safe at Home: Yes Safety Concerns: Feels Safe At This Time Smoking Status: Never smoker Do You Dip or Chew Tobacco: No ; Second Hand Exposure: No ; Tobacco Cessation Education Requested by Patient: No Hx Alcohol Use: No Hx Substance Use: No Review of Systems Review of Systems: All systems reviewed & are unremarkable except as noted in HPI & below Physical Exam Physical Exam: Constitutional: WD/WN, F, vitals as above, NAD, sitting up in bed, pleasant, conversing easily Head: Normocephalic, Atraumatic Eyes: PERRL, conjunctivae normal, anicteric sclerae ENMT: external ear and nose normal, oropharynx normal Neck: trachea midline, no thyromegaly normal visual inspection Respiratory: normal respiratory effort, lungs clear to auscultation, no wheeze, rales, rhonchi. Normal insp/exp effort, no accessory muscle use Cardiovascular: IRR/IRR, no murmur, no edema Vessels: no JVD or carotid bruit Chest: normal inspection of chest Abdomen: normal bowel sounds, soft, nontender, no hepatosplenomegaly Musculoskeletal: no cyanosis or clubbing, extremities motor strength 4/5 throughout Skin: no rashes, warm and dry normal turgor Neurologic: PERRL, EOMI, accommodation nl, no face palsy, no dysarthria CN's II-XI intact bilaterally and moves all extremities Psychiatric: A+O to self and place, thought it was August, difficulty with recall, past presidents, euthymic affect Lymphatic: no cervical or axillary lymphadenopathy : deferred Results & Data Vital Signs (Past 12 Hours) Vital Signs Temp Pulse Pulse Resp BP BP Pulse Ox 10/02/19 11:01 80 18 155/87 H 98 10/02/19 09:40 100 10/02/19 09:08 36.6 C 86 18 106/69 100 Laboratory Results Short CBC 10/02/19 Range/Units 10:00 WBC 10.50 (4.8-10.8) K/uL Hgb 14.3 (12.0-16.0) g/dL Hct 42.4 (37-47) % Plt Count 185 (130-400) K/uL BMP 10/02/19 10:00 Sodium 139 Potassium 3.7 Chloride 104 Carbon Dioxide 26 BUN 12 Creatinine 0.88 Glucose 118 H Calcium 8.9 Cardiac Enzymes 10/02/19 Range/Units 10:00 Total Creatine Kinase 170 (26-192) U/L Troponin I < 0.015 (0-0.045) ng/ml Liver Function 10/02/19 Range/Units 10:00 Total Bilirubin 1.0 (0.2-1) mg/dl AST 25 (15-37) U/L ALT 21 (12-78) U/L Alkaline Phosphatase 64 (45-117) U/L Albumin 2.9 L (3.4-5.0) gm/dl Urine 10/02/19 Range/Units 10:30 Urine Color Dark Yellow Urine Appearance Clear (Clear) Urine pH 6.0 (4.5-7.5) Ur Specific [place] 1.018 (1.000-1.030) Urine Protein Negative (Negative) Urine Glucose (UA) Negative (Negative) Diagnostic Findings CXR: IMPRESSION: 1. Cardiomegaly and AICD. There is no radiographic evidence of congestive failure. 2. No airspace consolidation or large pleural effusion is identified. Head CT: IMPRESSION: There is no hemorrhage, mass effect, or evidence of acute territorial ischemia by CT criteria. Medications Administered Discontinued Medications Sodium Chloride (Nss) 500 mls @ 999 mls/hr IV .Q31M SOL Stop: 10/02/19 10:15 Last Infusion: 10/02/19 10:49 Dose: 0 mls/hr Documented by: [id number] Admin: 10/02/19 10:18 Dose: 999 mls/hr Documented by: [id number] Code Status & VTE Plan VTE Prophylaxis Plan VTE Prophylaxis will be ordered: Yes Supervising Physician Co-Signing Physician Notes Attending addendum: The patient was seen and examined in telemetry unit She has been complaining of diarrhea for the last 2 days with lower abdominal pain She was found on the floor in the bathroom by her son She can remember the fall but denies any loss of consciousness On examination Lying in bed comfortably Hemodynamically stable with blood pressure on the lower side Chest-decreased breath sounds at the bases but no wheezing and/or crackles Heart-S1-S2, regular Abdomen-soft, tender in left lower quadrant with rebound tenderness bowel sounds present, Extremities trace edema bilaterally- 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 Generally weak Admission labs, EKG and imaging studies reviewed Has proctitis/diverticulitis with diarrhea Ambulatory dysfunction with fall Change in mental status likely due to proctitis/diverticulitis Agree with assessment and plan as outlined above by DAVID Orta DR (1) Fall Encounter type: initial encounter Qualified Code(s): W19.XXXA - Unspecified fall, initial encounter
[2019-10-02 12:52] LABS: Estimated Average Glucose 117 mg/dl; Hemoglobin A1C 5.7 % (4.5-5.6)
[2019-10-02 12:59] LABS: INR 1.3 (0.9-1.1); Prothrombin Time 13.5 Seconds (9.0-12.0)
[2019-10-02] MEDS ORDERED: Heparin IV Low Dose *NO* Bolus IV ONE (13:39)
--- NOTE | 2019-10-02 14:12 | CT Scan Report ---
CT abd pelvis wo con CLINICAL HISTORY: 79 years-old Female presenting with abd pain. TECHNIQUE: Multidetector CT of the abdomen and pelvis was performed without the use of intravenous co ntrast. IV contrast: None. One or more dose lowering techniques were used consistent with the princip les of ALARA (as low as reasonably achievable), including automatic exposure control, mA or kV adjust ment to individual patient size, and/or use of iterative reconstruction. COMPARISON: None. CT DOSE (mGy.cm): The estimated cumulative dose is 1025.62 mGycm. FINDINGS: Spin Table Operator topogram: Unremarkable. Positioning of the arms over the abdomen results in mild image quality degradation and mild decreased diagnostic sensitivity in the upper abdomen. Lung bases: Cardiac leads to the right atrial appendage and right ventricular apex. Mild multichamber enlargement of the heart. No pericardial or pleural effusion. Minimal dependent changes likely atele ctasis. Mosaic attenuation may suggest small airways disease. Liver: Micronodular contour of the liver with relative hypertrophy of the left hepatic lobe and cauda te lobe likely indicating cirrhosis. Normal liver density. Biliary: No gross biliary ductal dilatation allowing for noncontrast technique. Normal gallbladder. Pancreas: Normal noncontrast appearance. Spleen: Normal noncontrast appearance. Adrenal glands: Normal noncontrast appearance. Kidneys and ureters: Normal noncontrast appearance. No nephrolithiasis. No hydronephrosis. Normal ure ters. Bladder: Normal noncontrast appearance. Pelvic organs: Uterus surgically absent. Bowel: Wall thickening and perirectal inflammatory changes to a moderate to severe degree at the uppe r rectum near the peritoneal reflection. There is significant hazy ill-defined soft tissue density in the perirectal fat. Associated mesorectal fascial thickening. No evidence of diverticulosis. The shikha endix is not visualized. No bowel obstruction. Peritoneal cavity: Trace free fluid in the pelvis. Presacral trace fluid may also be present. No free intraperitoneal gas. Lymph nodes: No gross lymphadenopathy allowing for noncontrast technique. Vasculature: Atherosclerosis of the normal caliber abdominal aorta. No convincing evidence of varices . Abdominal wall: Normal. Musculoskeletal: Degenerative changes of the spine. Erosive endplate changes are noted at several lev els in the lumbar spine, most likely degenerative in etiology. IMPRESSION: 1. Moderate to severe inflammatory changes at the upper rectum with soft tissue/phlegmon in the meso rectal fat and significant mesorectal fascial thickening and trace presacral fluid. Findings could re present a severe focal proctitis, likely infectious or inflammatory. There is no evidence of divertic hellen elsewhere though the possibility of a focal diverticulitis is also another consideration. Followi ng treatment, direct visualization with colonoscopy is recommended to ensure the absence of an underl des neoplasm. 2. Cirrhosis. No convincing evidence of portal hypertension. 3. Mild cardiomegaly. 4. Small airways disease. The report will be called/faxed according to standard departmental protocol. Electronically signed by: Jonh Byrd M.D. 10/02/2019 2:10 PM
[2019-10-02] MEDS ORDERED: PIPERACILL/TAZOBAC CONSULT ACTIVE PRN (14:15)
[2019-10-02] MEDS ORDERED: Heparin IV Low Dose *NO* Bolus IV SCH (14:30)
[2019-10-02] MEDS ORDERED: MAGNESIUM HYDROXIDE SUSP 30 ML UDC PO PRN (14:35)
[2019-10-02] MEDS ORDERED: ACETAMINOPHEN 325 MG TAB PO PRN (14:35)
[2019-10-02] MEDS ORDERED: ALUMINUM/MAGNESIUM SUSP 30 ML UDC PO PRN (14:35)
[2019-10-02] MEDS ORDERED: POLYETHYLENE (MIRALAX) 17 GM PACK PO PRN (14:35)
[2019-10-02] MEDS ORDERED: ONDANSETRON INJ 2 MG/ML 2 ML VIAL IV PRN (14:35)
[2019-10-02] MEDS ORDERED: PIPERACILLIN/TAZOBACTAM 3.375 GM in DEXTROSE 5% 100 ML IV ONE (15:00)
[2019-10-02] MEDS: HEPARIN SODIUM/DEXTROSE 25,000 UNITS/500 ML BAG IV SCH ×2 (16:00→23:55)
[2019-10-02] MEDS ORDERED: WARFARIN SOD 6 MG TAB PO ONE (16:00)
[2019-10-02] MEDS: TRAZODONE HCL 50 MG TAB PO SCH ×2 (16:47→18:51)
--- NOTE | 2019-10-02 17:44 | Emergency Department Note ---
Entered by Hung Reyes acting as a scribe for ED Provider Note CHIEF COMPLAINT: Weakness HISTORY OF PRESENT ILLNESS: The patient is a 79 year old female who presents to the ED complaining of constant weakness over the past couple of days. Per the triage note, the patient was found by her son laying on her back on the bathroom floor. The patient states that she did not fall but instead felt herself get weak and lowered herself to the ground. Per the note, the patient was confused when her son first found her and when he called her PCP, they were referred to the ED. The patient states that the only pain she has is in the left elbow from trying to get herself up after lowering to the ground. The patient reports that she has had diarrhea for the past couple of days. The patient also mentioned that her had recently and per the son, she has not been the same since. Pt denies LOC, headache, fevers, chills, diaphoresis, visual changes, neck pain, chest pain, breathing difficulties, nausea, vomiting, abdominal pain, back pain, melena, hematochezia, urinary symptoms, numbness, lymphadenopathy, rash, or other complaints. REVIEW OF SYSTEMS: See HPI for pertinent positives and negatives. A total of ten systems were reviewed and were otherwise negative. PMHx/PSHx: HLD, HTN, DM, Hypothyroid, Appendectomy, ICD, Afib, Cardiac cath, anxiety, depression SOCIAL HISTORY: Patient lives at home. PHYSICAL EXAM: VITALS: Temperature of 36.8C GENERAL: Awake, alert, tired-appearing, in no distress HENT: Normocephalic, atraumatic. Oropharynx unremarkable. Dry mucous membranes. EYES: Normal conjunctiva. Sclera non-icteric. NECK: Inspection normal. Non-tender. Supple. No nuchal rigidity. FROM. No masses. RESPIRATORY: Clear to auscultation. No wheezes. No rales. Normal respiratory effort. CARDIAC: Normal rate. Normal rhythm. No murmurs. No rubs. Extremities warm and well perfused. Pulses equal. No JVD. GI: Soft, non-distended. No tenderness to palpation. No rebound or guarding. No masses. RECTAL: Deferred. MUSCULOSKELETAL: Contusion noted on the left elbow with no hector deformity or tenderness. Chest examination reveals no tenderness. The back is symmetrical on inspection without obvious abnormality. There is no CVA tenderness to palpation. No joint edema. LOWER EXTREMITIES: Calves are equal size bilaterally and non-tender. Trace edema. No discoloration. NEURO: Mildly confused sensorium. Generally weak with no focal deficits. No sensory or motor deficits noted. SKIN: No rash or jaundice noted. EMERGENCY DEPARTMENT COURSE: 938: The patient was evaluated in room A10, and a complete history and physical examination were performed. 1125: I spoke to the patient's son at bedside who confirmed the history. He also informed me that the patient is intermittently confused at baseline and he did not noticed any stroke like symptoms. 1145: I reevaluated the patient and she is resting in bed. I updated the patient and family on results as well as the treatment plan which they were agreeable with. 1153: I discussed the patient's case with Sofie GONZALES who is under Dr. Rashid - [facility] Hospitalist. They are going to accept the patient for further evaluation. MEDICAL DECISION MAKING: A10 Prior records/ancillary studies reviewed and summarized above. Nursing notes reviewed and agree them. Additional history obtained from patient's son.. The patient's history was concerning for altered mental status. Differential diagnosis: Etiologies such as infection, hypoglycemia, electrolyte abnormalities, cardiac sources, intracerebral event, toxicologic, neurologic, CVA, TIA, as well as others were entertained. Physical examination: Nonfocal as above. ER treatment provided: IV Lock Normal saline hydration. On reassessment the patient felt better. Diagnostics interpretation by me: ECG: T wave inversions noted however these changes were not new. The labs revealed an unremarkable CBC and chemistry panel. Troponin negative. Urinalysis negative. The patient's TSH is low however free T4 is normal. Imaging studies: Chest x-ray and head CT were negative for acute process. The patient had confusion. She was generally weak. She has had diarrhea but no symptoms to suggest GI bleed. There is no leukocytosis. No anemia. Due to the weakness and confusion reported by the family I discussed further management in the hospital. Patient and son were in agreement. Consultation: A consultation was placed with the hospitalist. The case was discussed and diagnostics were reviewed. The patient was evaluated in the ER for further treatment. IMPRESSION: Generalized weakness Confusion Fall Abnormal EKG PLAN: Being evaluated by the hospitalist The scribe's documentation has been prepared under my direction and personally reviewed by me in its entirety. I confirm that the note above accurately reflects all work, treatment, procedures, and medical decision making performed by me. Impression & Plan Generalized weakness, Confusion, Fall, Abnormal EKG Past Med/Surg History Medical History Anxiety (Chronic) Depression (Chronic) DM type 2 (diabetes mellitus, type 2) (Chronic) Dyslipidemia (Chronic) Hypertension (Chronic) Hypothyroidism (Chronic) ICD (implantable cardioverter-defibrillator) in place (Chronic) Osteoarthritis (Chronic) Persistent atrial fibrillation (Chronic) Sudden cardiac (Chronic) Ventricular tachycardia (Chronic) Surgical History History of cataract surgery (Chronic) History of total left knee replacement (Chronic) History of total right knee replacement (Chronic) Hx of appendectomy (Chronic) Hx of cardiac cath (Chronic) "2004-demonstrated normal coronary arteries" S/P right knee arthroscopy (Chronic) S/P KATHLEEN-BSO (Chronic) Family History (Updated 10/02/19 @ 12:41 by Sofie Peguero PA-C) Father Diabetes Mother Diabetes Social History (Updated 10/02/19 @ 12:42 by Sofie Peguero PA-C) Preferred Language: German Communication Ability: Effective Case Worker Required: No Beliefs That Will Affect Care: None marital status: / Current Living Situation: Alone Other Information That Helps Us Care for You: No Feels Safe at Home: Yes Safety Concerns: Feels Safe At This Time Smoking Status: Never smoker Do You Dip or Chew Tobacco: No ; Second Hand Exposure: No ; Tobacco Cessation Education Requested by Patient: No Hx Alcohol Use: No Hx Substance Use: No Results & Data Vital Signs Vital Signs - 24 hr 10/02/19 09:08 10/02/19 09:40 10/02/19 11:01 Temperature 36.6 C Temperature Source Oral Pulse Rate 86 Pulse Rate [Apical] 80 Respiratory Rate 18 18 Blood Pressure 106/69 Blood Pressure [Left Arm] 155/87 H Blood Pressure Mean 81 Blood Pressure Mean [Left Arm] 109 Pulse Oximetry 100 100 98 Oxygen Delivery Method Room Air Room Air Sepsis Recent Fever Within 48 Hours No Sepsis Action Taken by Nursing No Action Required Home Medications Current Medication List: was personally reviewed by me Laboratory Data Attestation: I reviewed the patient's lab results. Result diagrams: 10/02/19 10:00 10/02/19 10:00 Lab Results 10/02/19 10/02/19 10/02/19 Range/Units 10:00 10:00 10:00 WBC 10.50 (4.8-10.8) K/uL RBC 4.67 (4.2-5.4) M/uL Hgb 14.3 (12.0-16.0) g/dL Hct 42.4 (37-47) % MCV 90.8 (80-100) fL MCH 30.6 (25-34) pg MCHC 33.7 (32-36) g/dL RDW Std Deviation 43.4 (36.4-46.3) fL RDW Coeff of Lisa 13.2 (11.5-14.5) % Plt Count 185 (130-400) K/uL MPV 10.5 H (7.4-10.4) fL Immature Gran % (Auto) 0.2 % Neut % (Auto) 80.1 % Lymph % (Auto) 12.0 % Clayton % (Auto) 6.8 % Eos % (Auto) 0.8 % Baso % (Auto) 0.1 % Immature Gran # (Auto) 0.02 (0.00-0.02) K/uL Neut # (Auto) 8.42 H (1.4-6.5) K/uL Lymph # (Auto) 1.26 (1.2-3.4) K/uL Clayton # (Auto) 0.71 H (0.11-0.59) K/uL Eos # (Auto) 0.08 (0-0.5) K/uL Baso # (Auto) 0.01 (0-0.2) K/uL PT 13.5 H (9.0-12.0) Seconds INR 1.3 H (0.9-1.1) Sodium 139 (136-145) mmol/L Potassium 3.7 (3.5-5.1) mmol/L Chloride 104 (98-107) mmol/L Carbon Dioxide 26 (21-32) mmol/L Anion Gap 7.0 (3-11) BUN 12 (7-18) mg/dl Creatinine 0.88 (0.6-1.2) mg/dl Est Cr Clr Drug Dosing 64.6 ml/min Est GFR ( Amer) 73.5 Est GFR (Non-Af Amer) 63.4 BUN/Creatinine Ratio 14.1 (10-20) Glucose 118 H (70-99) mg/dl Estimat Average Glucose mg/dl Hemoglobin A1c (4.5-5.6) % Calcium 8.9 (8.5-10.1) mg/dl Magnesium 1.8 (1.8-2.4) mg/dl Total Bilirubin 1.0 (0.2-1) mg/dl AST 25 (15-37) U/L ALT 21 (12-78) U/L Alkaline Phosphatase 64 (45-117) U/L Total Creatine Kinase 170 (26-192) U/L Troponin I < 0.015 (0-0.045) ng/ml Total Protein 6.8 (6.4-8.2) gm/dl Albumin 2.9 L (3.4-5.0) gm/dl Globulin 3.9 (2.5-4.0) gm/dl Albumin/Globulin Ratio 0.7 L (0.9-2) TSH 0.169 L (0.300-4.500) uIu/ml Free T4 1.28 (0.8-1.6) ng/dl Specimen Hemolysis Urine Color Urine Appearance (Clear) Urine pH (4.5-7.5) Ur Specific [place] (1.000-1.030) Urine Protein (Negative) Urine Glucose (UA) (Negative) Urine Ketones (Negative) Urine Blood (Negative) Urine Nitrite (Negative) Urine Bilirubin (Negative) Urine Urobilinogen (Negative) Ur Leukocyte Esterase (Negative) 10/02/19 10/02/19 Range/Units 10:00 10:30 WBC (4.8-10.8) K/uL RBC (4.2-5.4) M/uL Hgb (12.0-16.0) g/dL Hct (37-47) % MCV (80-100) fL MCH (25-34) pg MCHC (32-36) g/dL RDW Std Deviation (36.4-46.3) fL RDW Coeff of Lisa (11.5-14.5) % Plt Count (130-400) K/uL MPV (7.4-10.4) fL Immature Gran % (Auto) % Neut % (Auto) % Lymph % (Auto) % Clayton % (Auto) % Eos % (Auto) % Baso % (Auto) % Immature Gran # (Auto) (0.00-0.02) K/uL Neut # (Auto) (1.4-6.5) K/uL Lymph # (Auto) (1.2-3.4) K/uL Clayton # (Auto) (0.11-0.59) K/uL Eos # (Auto) (0-0.5) K/uL Baso # (Auto) (0-0.2) K/uL PT (9.0-12.0) Seconds INR (0.9-1.1) Sodium (136-145) mmol/L Potassium (3.5-5.1) mmol/L Chloride (98-107) mmol/L Carbon Dioxide (21-32) mmol/L Anion Gap (3-11) BUN (7-18) mg/dl Creatinine (0.6-1.2) mg/dl Est Cr Clr Drug Dosing ml/min Est GFR ( Amer) Est GFR (Non-Af Amer) BUN/Creatinine Ratio (10-20) Glucose (70-99) mg/dl Estimat Average Glucose 117 mg/dl Hemoglobin A1c 5.7 H (4.5-5.6) % Calcium (8.5-10.1) mg/dl Magnesium (1.8-2.4) mg/dl Total Bilirubin (0.2-1) mg/dl AST (15-37) U/L ALT (12-78) U/L Alkaline Phosphatase (45-117) U/L Total Creatine Kinase (26-192) U/L Troponin I (0-0.045) ng/ml Total Protein (6.4-8.2) gm/dl Albumin (3.4-5.0) gm/dl Globulin (2.5-4.0) gm/dl Albumin/Globulin Ratio (0.9-2) TSH (0.300-4.500) uIu/ml Free T4 (0.8-1.6) ng/dl Specimen Hemolysis Urine Color Dark Yellow Urine Appearance Clear (Clear) Urine pH 6.0 (4.5-7.5) Ur Specific [place] 1.018 (1.000-1.030) Urine Protein Negative (Negative) Urine Glucose (UA) Negative (Negative) Urine Ketones Negative (Negative) Urine Blood Negative (Negative) Urine Nitrite Negative (Negative) Urine Bilirubin Negative (Negative) Urine Urobilinogen Negative (Negative) Ur Leukocyte Esterase Negative (Negative) Administered Medications Heparin Sodium/Dextrose (Heparin Sodium/Dextrose) 25,000 units in 500 mls @ 18 mls/hr IV .Q24H [facility]; Protocol Stop: 11/01/19 13:44 Last Admin: 10/02/19 16:00 Dose: 900 units/hr, 18 mls/hr Documented by: [id number] Cosigned by: [id number] Sodium Chloride (Nss 1000ml) 1,000 mls @ 80 mls/hr IV .[id number] [facility] Stop: 10/03/19 03:19 Last Admin: 10/02/19 16:44 Dose: 80 mls/hr Documented by: [id number] Trazodone HCl (Desyrel) 50 mg PO DAILY@1600,1900 [facility] Stop: 11/01/19 15:59 Last Admin: 10/02/19 16:47 Dose: 50 mg Documented by: [id number] Discontinued Medications Heparin Sodium/Dextrose () 1 ea IV ONE ONE; Protocol Stop: 10/02/19 13:40 Last Admin: 10/02/19 16:03 Dose: 1 ea Documented by: [id number] Sodium Chloride (Nss) 500 mls @ 999 mls/hr IV .Q31M [facility] Stop: 10/02/19 10:15 Last Infusion: 10/02/19 10:49 Dose: 0 mls/hr Documented by: [id number] Admin: 10/02/19 10:18 Dose: 999 mls/hr Documented by: [id number] Sodium Chloride (Nss 1000ml) 1,000 mls @ 125 mls/hr IV .Q8H [facility] Stop: 10/02/19 17:44 Last Infusion: 10/02/19 14:16 Dose: 0 mls/hr Documented by: [id number] Admin: 10/02/19 10:30 Dose: 125 mls/hr Documented by: [id number] Piperacillin Sod/Tazobactam (Sod 3.375 gm/ Dextrose) 115 mls @ 230 mls/hr IV NOW ONE; Protocol Stop: 10/02/19 15:29 Last Admin: 10/02/19 16:44 Dose: 230 mls/hr Documented by: [id number] Warfarin Sodium (Coumadin) 6 mg PO DAILY@1600 ONE Stop: 10/02/19 16:01 Last Admin: 10/02/19 16:48 Dose: 6 mg Documented by: [id number] Imaging Data Radiologist's Impression: Radiology results as stated below per my review and the radiologist's interpretation: SINGLE VIEW CHEST CLINICAL HISTORY: Generalized weakness. FINDINGS: An AP, portable, upright chest radiograph is compared to study dated 06/17/2018. The examination is degraded by portable technique and patient rotation. A 3-lead cardiac AICD is unchanged in position and partially obscures the left upper chest. The heart is enlarged noting atherosclerotic calcification of the thoracic aorta. The pulmonary vasculature is noncongested. There is bibasilar atelectasis. No airspace consolidation or large pleural effusion is identified. No pneumothorax is seen. The skeletal structures are osteopenic. The bony thorax is grossly intact. IMPRESSION: 1. Cardiomegaly and AICD. There is no radiographic evidence of congestive failure. 2. No airspace consolidation or large pleural effusion is identified. Electronically signed by: Dany Grimm M.D. 10/02/2019 10:[address] SCAN OF THE BRAIN WITHOUT IV CONTRAST CLINICAL HISTORY: Fall. COMPARISON STUDY: CT of the brain dated 06/18/2018. TECHNIQUE: Unenhanced axial CT scan of the brain is performed from the vertex to the skull base. A dose lowering technique was utilized adhering to the principles of ALARA. CT DOSE: 537.48 mGy.cm FINDINGS: Brain parenchyma: There are age-related involutional changes noting mild subcor tical and periventricular microangiopathic change. There is no hemorrhage, mass effect, or evidence of acute territorial ischemia by CT criteria. Bhatia-white matter differentiation is preserved. No extra-axial fluid collection is seen. Ventricles, sulci, cisterns: Prominent secondary to involutional change. Intracranial vasculature: There is atherosclerotic calcification of the cavernous carotid and vertebral arteries. Calvarium: The skeletal structures are osteopenic. No depressed calvarial f racture is identified. Sinuses and mastoids: The visualized paranasal sinuses are clear. The mastoid air cells are well pneumatized. Orbits: The bony orbits are grossly intact. There are bilateral ocular lens implants. IMPRESSION: There is no hemorrhage, mass effect, or evidence of acute territo rial ischemia by CT criteria. Electronically signed by: Dany Grimm M.D. 10/02/2019 11:18 AM ECG Data Attestation: I personally reviewed and interpreted this ECG as follows: Indication: + weakness Rate (beats per minute): 87 Rhythm: atrial fibrillation (With occasional V-paced complexes ) ECG Intervals/blocks: + Normal QRS and + Normal QT ECG ST segments: + T-wave inversions (Anterior and inferior); no ST elevation Comparison ECG Date: from (06/18/18) Change: the following changes noted (V-Paced complexes are new) Blood Pressure Blood Pressure Findings: Elevated blood pressure Blood Pressure Disposition: further management by hospitalist Discharge Plan Visit Data *Final* Discharge Date/Time: 10/02/19 13:58 Chief Complaint: Fall Stated Complaint: FOUND ON BACK IN BATHROOM ED Provider: Tello Veliz Discharge Problem: Generalized weakness, Confusion, Fall, Abnormal EKG Patient Disposition: Admitted As Inpatient Discharge Instructions Interventions: ED Discharge Assessment Last Done: 10/02/19 13:58 Discharge Problem: Fall Qualifiers: Encounter type: initial encounter Qualified Code(s): W19.XXXA - Unspecified fall, initial encounter The scribe's documentation has been prepared under my direction and personally reviewed by me in its entirety. I confirm that the note above accurately reflects all work, treatment, procedures, and medical decision making performed by me.
[2019-10-02] MEDS: PIPERACILLIN/TAZOBACTAM 3.375 GM in DEXTROSE 5% 100 ML IV SCH (20:06)
[2019-10-02] MEDS: GABAPENTIN 100 MG CAP PO SCH (20:08)
[2019-10-02] MEDS: METOPROLOL SUCC 50MG EXT REL TAB PO SCH (20:08)
[2019-10-02] MEDS: SIMVASTATIN 20 MG TAB PO SCH (20:11)
[2019-10-02 22:46] LABS: Partial Thromboplastin Ratio 1.4; Partial Thromboplastin Time 37.4 Seconds (21.0-31.0)
[2019-10-02 22:46] LABS: Cdiff Antigen Positive; Cdiff Toxin A+B Negative Cdiff Toxin (Negative)
[2019-10-02] MEDS ORDERED: HEPARIN IV BOLUS 4,500 UNITS in SYRINGE 0 ML IV ONE (23:45)
[2019-10-03] MEDS: PIPERACILLIN/TAZOBACTAM 3.375 GM in DEXTROSE 5% 100 ML IV SCH ×2 (03:36→11:51)
[2019-10-03] MEDS: LEVOTHYROXINE SODIUM 125 MCG TABLET PO SCH (05:52)
[2019-10-03 06:12] LABS: Hematocrit (blood only) 40.5 % (37-47); Hemoglobin 13.5 g/dL (12.0-16.0); Mean Corpuscular Hemoglobin 30.6 pg (25-34); Mean Corpuscular Hgb Conc 33.3 g/dL (32-36); Mean Corpuscular Volume 91.8 fL (80-100); Mean Platelet Volume 10.5 fL (7.4-10.4); Platelet Count 176 K/uL (130-400); RDW Coefficient of Variation 13.3 % (11.5-14.5); Red Blood Count 4.41 M/uL (4.2-5.4); White Blood Count 7.41 K/uL (4.8-10.8)
[2019-10-03 06:33] LABS: INR 1.4 (0.9-1.1); Partial Thromboplastin Ratio 2.5; Prothrombin Time 13.7 Seconds (9.0-12.0)
[2019-10-03 06:48] LABS: BUN Creatinine Ratio 14.4 (10-20); Calcium 8.3 mg/dl (8.5-10.1); Creatinine Clr Calc Pharmacy 66.1 ml/min; Est GFR (African American) 75.5; Est GFR (Non-African American) 65.2; Magnesium 1.9 mg/dl (1.8-2.4); Potassium 3.2 mmol/L (3.5-5.1)
[2019-10-03] MEDS: FLUOXETINE HCL 20 MG CAP PO SCH (09:13)
[2019-10-03] MEDS: CEROVITE ADV FORMULA TAB PO SCH (09:13)
[2019-10-03] MEDS: METOPROLOL SUCC 50MG EXT REL TAB PO SCH ×2 (09:14→21:06)
[2019-10-03] MEDS: CHOLECALCIFEROL 1,000 UNITS TAB PO SCH (09:14)
[2019-10-03] MEDS ORDERED: POTASSIUM CHLORIDE 20 MEQ TABCR PO ONE (09:30)
--- NOTE | 2019-10-03 11:58 | Hospitalist Progress Note ---
Date of Service October 03, 2019 Assessment & Plan (1) Generalized weakness: (2) Fall: (3) Confusion: Came to the ER after son found her on the bathroom floor CT head showed no acute abnormality CXR negative Fall precaution Continue PT/OT Doesn't want to go to rehab Will need 24hr supervision once discharge home (4) Abnormal CT of the abdomen: Possible related to severe focal proctitis CT abd/pelvis showed moderate to severe inflammatory changes at the upper rectum with soft tissue/phlegmon in the mesorectal fat and significant mesorectal fascial thickening and trace presacral fluid Episodes of loose stools Will consult GI to ensure follow up for colonoscopy Case discussed with GI recommended to make NPO after midnight for possible scope in am Last outpatient colonoscopy done in 03/2012 at that time recommended follow colonoscopy in 1 year Will hold coumadin for today and continue on heparin drip for possible scope (5) Persistent atrial fibrillation: Rate controlled on metoprolol anticoagulated with warfarin CHADSVASC 5 was starting on IV heparin drip, will continue for now since GI plan to get scope done Will hold today dose coumadin (6) Hypertension: BP stable Continue metoprolol (7) DM type 2 (diabetes mellitus, type 2): HBa1c 5.7 today not on any Diabetic oral meds A1C today 5.7 (8) Dyslipidemia: continue statin (9) ICD (implantable cardioverter-defibrillator) in place: interrogate given recent falls and poor historian (10) Hypothyroidism: TSH 0.169, free T4 1.28 continue levothyroxine (11) Depression: Continue prozac (12) DVT prophylaxis: on IV heparin scd/teds Disposition Possible discharge home tomorrow Subjective Pt was seen and examined Lying in bed with no distress Pt said that she feels fine She said that she participated in therapy Nurse said that she already had 3 loose BM this morning She tolerated her diet She is very anxious to discharge today to go to her hair appointment Denies any chest pain, palpitation, dizziness and SOB Physical Exam Physical Exam: General- No acute distress Head- atraumatic Eyes- PERRL, EOMI, ENT- oropharynx clear Neck- supple, no JVD Lungs- clear to auscultation Heart- irregular rhythm; no murmur Abdomen- normal bowel sounds, soft, nontender Extremities- no calf tenderness Neuro- alert, oriented x 3; PERRL, EOMI; no facial palsy; no dysarthria Skin- warm & dry Results & Data Vital Signs (Past 12 Hours) Vital Signs Temp Pulse Resp BP Pulse Ox 10/03/19 07:42 36.7 C 78 18 129/81 95 (1) Fall Encounter type: initial encounter Qualified Code(s): W19.XXXA - Unspecified fall, initial encounter
[2019-10-03] MEDS: MICONAZOLE NITRATE POWDER 43 GM EXT PRN (12:00)
[2019-10-03 13:46] LABS: Partial Thromboplastin Ratio 1.7
[2019-10-03 14:05] LABS: Partial Thromboplastin Time 45.9 Seconds (21.0-31.0)
[2019-10-03] MEDS ORDERED: HEPARIN IV BOLUS 3,000 UNITS in SYRINGE 0 ML IV STA (14:25)
[2019-10-03] MEDS: TRAZODONE HCL 50 MG TAB PO SCH ×2 (15:44→18:21)
[2019-10-03] MEDS: HEPARIN SODIUM/DEXTROSE 25,000 UNITS/500 ML BAG IV SCH (18:21)
[2019-10-03] MEDS ORDERED: LORazepam 0.5 MG TAB PO PRN (20:13)
[2019-10-03] MEDS: GABAPENTIN 100 MG CAP PO SCH (21:06)
[2019-10-03] MEDS: SIMVASTATIN 20 MG TAB PO SCH (21:06)
[2019-10-03 21:35] LABS: Partial Thromboplastin Ratio 2.1
[2019-10-03 21:36] LABS: Partial Thromboplastin Time 57.8 Seconds (21.0-31.0)
[2019-10-04] MEDS: LEVOTHYROXINE SODIUM 125 MCG TABLET PO SCH (05:38)
[2019-10-04 06:45] LABS: Creatinine Clr Calc Pharmacy 81.3 ml/min; Est GFR (African American) 96.9; Est GFR (Non-African American) 83.6
[2019-10-04 06:53] LABS: Partial Thromboplastin Time 54.7 Seconds (21.0-31.0)
--- NOTE | 2019-10-04 08:04 | Gastrointestinal Consultation ---
Date of Consultation October 04, 2019 Assessment & Plan (1) Abnormal CT of the abdomen: [address] w/ moderate to severe inflammatory changes at the upper rectum with soft tissue/phlegmon in the mesorectal fat and significant mesorectal fascial thickening and trace presacral fluid. Stool for c.diff negative toxin but positive gene, stool culture pending but negative to date. Last colonoscopy incomplete due to poor prep in 2011. NPO Will discuss heparin gtt w/ attending and primary team cdiff toxin negative culture negative to date Flex Sig today Thank you for allowing us to participate in the care of this patient. Please call with any acute changes, questions or concerns. Please see addendum below with additional recommendation from my supervising physician. Present on Admission?: Yes Supervising Physician Co-Signing Physician Notes I saw and evaluated the patient. He presented with evidence of proctitis on a recent CT scan. Flexible sigmoidoscopy has been requested by the internal medicine service for further evaluation. Given the patient's prior history she will ultimately need a full colonoscopy with a 2 to 3-day bowel prep as she had insufficient bowel prep during exam several years ago. Physical examination No obvious distress Obese abdomen Impression: Patient with proctitis on recent imaging study will plan for a flexible sigmoidoscopy today. The patient will ultimately need outpatient colonoscopy scheduled within 4 to 6 weeks. History of Present Illness Reason for Consultation: abnormal imaging, proctitis Requesting Physician: Brian Attending Physician: Tello Torres MD History of Present Illness 79 year old female with history of afib anticoagulated on warfarin, hx of cardiac arrest/vifb s/p AICD, HTN, HLD, diet controlled T2DM, hypothyroidism, GERD, Depression who presented through the ED for after being found on the bathroom floor by her son - CT head showed no acute abnormality, CXR negative. GI asked to evaluate for abnormal imaging. Pt was seen and evaluated, chart reviewed. She endorses a 4/5 day history of diarrhea. Suggests liquid stools 3-4 times daily. Brown. no black or bloody stools. No abdominal pain. No rectal pain. No UGI symptoms. She does endorse significant weight loss - suggests she does not weigh herself but is down 2 pant sizes in the past year. Unintentional. No fever, chills, CP, SOB. On heparin gtt CTAP: Moderate to severe inflammatory changes at the upper rectum with soft tissue/phlegmon in the mesorectal fat and significant mesorectal fascial thic kening and trace presacral fluid. Findings could represent a severe focal proctitis, likely infectious or inflammatory. There is no evidence of diverticula elsewhere though the possibility of a focal diverticulitis is also another consideration. Following treatment, direct visualization with colonoscopy is recommended to ensure the absence of an underlying neoplasm. Cirrhosis. No convincing evidence of portal hypertension. Colonoscopy 2011: incomplete exam due to poor prep, year recall recommended but pt deferred Allergies Allergy/AdvReac Type Severity Reaction Status Date / Time clarithromycin Allergy Unknown Unknown Verified 10/04/19 12:34 codeine Allergy Unknown Unknown Verified 10/04/19 12:34 Corticosteroids AdvReac Intermediate BODY Verified 10/04/19 12:34 (Glucocorticoids) SWELLS UP morphine AdvReac Intermediate CONFUSION Verified 10/04/19 12:34 Home Medications Home Medications Medication Instructions Recorded Confirmed Type Anxiety & Stress Relief Tablet 1 tab PO QAM 10/02/19 10/02/19 History cholecalciferol (vitamin D3) 1,000 unit PO QAM 10/02/19 10/02/19 History [Vitamin D3] diclofenac sodium 2 g TOPICAL UD 10/02/19 10/02/19 History fluoxetine 40 mg PO QAM 10/02/19 10/02/19 History gabapentin 100 mg PO HS 10/02/19 10/02/19 History levothyroxine 125 mcg PO QAM 10/02/19 10/02/19 History metoprolol succinate 50 mg PO BID 10/02/19 10/02/19 History multivitamin with minerals 1 tab PO QAM 10/02/19 10/02/19 History [Hair,Skin and Nails] simvastatin 20 mg PO HS 10/02/19 10/02/19 History trazodone 50 mg PO BID 10/02/19 10/02/19 History warfarin [Jantoven] 2 mg PO MOFR 10/02/19 10/02/19 History warfarin [Jantoven] 4 mg PO SUTUWETHSA 10/02/19 10/02/19 History Patient History Medical History Anxiety (Chronic) Depression (Chronic) DM type 2 (diabetes mellitus, type 2) (Chronic) Dyslipidemia (Chronic) Hypertension (Chronic) Hypothyroidism (Chronic) ICD (implantable cardioverter-defibrillator) in place (Chronic) Osteoarthritis (Chronic) Persistent atrial fibrillation (Chronic) Sudden cardiac (Chronic) Ventricular tachycardia (Chronic) Surgical History History of cataract surgery (Chronic) History of total left knee replacement (Chronic) History of total right knee replacement (Chronic) Hx of appendectomy (Chronic) Hx of cardiac cath (Chronic) "2004-demonstrated normal coronary arteries" S/P right knee arthroscopy (Chronic) S/P KATHLEEN-BSO (Chronic) Family History (Updated 10/02/19 @ 12:41 by Sofie Peguero PA-C) Father Diabetes Mother Diabetes Social History (Updated 10/02/19 @ 12:42 by Sofie Peguero PA-C) Preferred Language: Korean Communication Ability: Impaired 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 Beliefs That Will Affect Care: None marital status: / Current Living Situation: Alone Other Information That Helps Us Care for You: No Feels Safe at Home: Yes Safety Concerns: Feels Safe At This Time Smoking Status: Never smoker Do You Dip or Chew Tobacco: No ; Second Hand Exposure: No ; Tobacco Cessation Education Requested by Patient: No Hx Alcohol Use: No Hx Substance Use: No Review of Systems Constitutional: no fever Physical Exam Constitutional: no acute distress Neck: trachea midline Respiratory: normal respiratory effort, lungs clear to auscultation Cardiovascular: Rate/Rhythm: regular rate and regular rhythm Gastrointestinal (Abdomen): normal bowel sounds, soft, nontender, no hepatosplenomegaly Skin: no rashes, warm and dry Results & Data Vital Signs (Past 12 Hours) Vital Signs Temp Pulse Resp BP Pulse Ox 10/04/19 07:54 36.6 C 75 20 151/75 H 97 10/03/19 23:48 36.8 C 83 18 162/84 H 93 10/03/19 21:00 85 162/95 H 95 Laboratory Results 10/04/19 10/04/19 10/03/19 Range/Units 05:20 05:20 21:00 APTT 54.7 H* 57.8 H* (21.0-31.0) Seconds PTT Ratio 2.0 2.1 Creatinine 0.70 (0.6-1.2) mg/dl Est Cr Clr Drug Dosing 81.3 ml/min Est GFR ( Amer) 96.9 Est GFR (Non-Af Amer) 83.6 10/03/19 Range/Units 13:09 APTT 45.9 H* (21.0-31.0) Seconds PTT Ratio 1.7 Creatinine (0.6-1.2) mg/dl Est Cr Clr Drug Dosing ml/min Est GFR ( Amer) Est GFR (Non-Af Amer)
[2019-10-04] MEDS: CHOLECALCIFEROL 1,000 UNITS TAB PO SCH (08:35)
[2019-10-04] MEDS: METOPROLOL SUCC 50MG EXT REL TAB PO SCH (08:35)
[2019-10-04] MEDS: CEROVITE ADV FORMULA TAB PO SCH (08:35)
[2019-10-04] MEDS: FLUOXETINE HCL 20 MG CAP PO SCH (08:35)
[2019-10-04] MEDS: MICONAZOLE NITRATE POWDER 43 GM EXT PRN (08:36)
--- NOTE | 2019-10-04 13:04 | Anesthesiology Consultation ---
Date of Service October 04, 2019 Assessment & Plan (1) Encounter for pre-operative examination: History Surgery Operation Date: 10/04/19 15:30 Proposed Procedures p Flexible Sigmoidoscopy Dr Rafael Hall Height/Weight Height: 5 ft 7 in Weight: 98.8 kg Allergies Allergy/AdvReac Type Severity Reaction Status Date / Time clarithromycin Allergy Unknown Unknown Verified 10/04/19 12:34 codeine Allergy Unknown Unknown Verified 10/04/19 12:34 Corticosteroids AdvReac Intermediate BODY Verified 10/04/19 12:34 (Glucocorticoids) SWELLS UP morphine AdvReac Intermediate CONFUSION Verified 10/04/19 12:34 Medications Home Medications Medication Instructions Recorded Confirmed Last Taken Anxiety & Stress Relief Tablet 1 tab PO QAM 10/02/19 10/02/19 10/02/19 cholecalciferol (vitamin D3) 1,000 unit PO QAM 10/02/19 10/02/19 10/02/19 [Vitamin D3] diclofenac sodium 2 g TOPICAL UD 10/02/19 10/02/19 Unknown fluoxetine 40 mg PO QAM 10/02/19 10/02/19 10/02/19 gabapentin 100 mg PO HS 10/02/19 10/02/19 10/01/19 levothyroxine 125 mcg PO QAM 10/02/19 10/02/19 10/02/19 metoprolol succinate 50 mg PO BID 10/02/19 10/02/19 10/02/19 multivitamin with minerals 1 tab PO QAM 10/02/19 10/02/19 10/02/19 [Hair,Skin and Nails] simvastatin 20 mg PO HS 10/02/19 10/02/19 10/01/19 trazodone 50 mg PO BID 10/02/19 10/02/19 10/01/19 warfarin [Jantoven] 2 mg PO MOFR 10/02/19 10/02/19 09/27/19 warfarin [Jantoven] 4 mg PO SUTUWETHSA 10/02/19 10/02/19 10/01/19 Active Medications Generic Name Dose Route Start Last Admin Trade Name Freq PRN Reason Stop Dose Admin Acetaminophen 650 mg 10/02/19 14:35 10/03/19 09:26 Tylenol PO 11/01/19 14:34 650 mg Q4H PRN Administration pain/fever Fluoxetine HCl 40 mg 10/03/19 09:00 10/04/19 08:35 Prozac PO 11/02/19 08:59 40 mg QAM SOL Administration Gabapentin 100 mg 10/02/19 21:00 10/03/19 21:06 Neurontin PO 11/01/19 20:59 100 mg HS SOL Administration Heparin Sodium/Dextrose 25,000 units in 500 mls @ 21 mls/hr 10/02/19 13:45 10/04/19 09:41 Heparin Sodium/Dextrose IV 11/01/19 13:44 0 units/hr .[id number] SOL 0 mls/hr Titration Protocol 1,050 UNITS/HR Levothyroxine Sodium 125 mcg 10/03/19 06:30 10/04/19 05:38 Synthroid PO 11/02/19 06:29 125 mcg DAILYBB SOL Administration Metoprolol Succinate 50 mg 10/02/19 21:00 10/04/19 08:35 Toprol Xl PO 11/01/19 20:59 50 mg BID SOL Administration Miconazole Nitrate 1 appln 10/02/19 18:17 10/04/19 08:36 Desenex EXT 11/01/19 18:16 1 appln PRN PRN Administration Affected Skin Folds Multivitamins/Minerals 1 tab 10/03/19 09:00 10/04/19 08:35 Multivitamin W/ Minerals Tab PO 11/02/19 08:59 1 tab QAM SOL Administration Simvastatin 20 mg 10/02/19 21:00 10/03/19 21:06 Zocor PO 11/01/19 20:59 20 mg HS SOL Administration Trazodone HCl 50 mg 10/02/19 16:00 10/03/19 18:21 Desyrel PO 11/01/19 15:59 50 mg DAILY@1600,1900 SOL Administration Vitamin D 1,000 units 10/03/19 09:00 10/04/19 08:35 Vitamin D3 PO 11/02/19 08:59 1,000 units QAM SOL Administration NPO Date Last Intake of Fluids: 10/03/19 Time Last Intake of Fluids: 18:00 Date Last Intake of Solids: 10/03/19 Time Last Intake of Solids: 18:00 Past Medical History Medical History Anxiety (Chronic) Depression (Chronic) DM type 2 (diabetes mellitus, type 2) (Chronic) Dyslipidemia (Chronic) Hypertension (Chronic) Hypothyroidism (Chronic) ICD (implantable cardioverter-defibrillator) in place (Chronic) Osteoarthritis (Chronic) Persistent atrial fibrillation (Chronic) Sudden cardiac (Chronic) Ventricular tachycardia (Chronic) Past Family History Family History Father Diabetes Mother Diabetes Past Surgical History Surgical History History of cataract surgery (Chronic) History of total left knee replacement (Chronic) History of total right knee replacement (Chronic) Hx of appendectomy (Chronic) Hx of cardiac cath (Chronic) "2004-demonstrated normal coronary arteries" S/P right knee arthroscopy (Chronic) S/P KATHLEEN-BSO (Chronic) Social History Smoking Status: Never smoker Do You Dip or Chew Tobacco: No Hx Alcohol Use: No Hx Substance Use: No substance use type: does not use Physical Exam Vital Signs Last Vital Signs Temp 36.5 C 10/04/19 12:35 Pulse 86 10/04/19 12:35 Resp 20 10/04/19 12:35 BP 165/112 H 10/04/19 12:35 Pulse Ox 96 10/04/19 12:35 Testing Laboratory Results 10/03/19 05:56 10/04/19 05:20 PT 13.7 Seconds (9.0-12.0) H 10/03/19 05:56 INR 1.4 (0.9-1.1) H 10/03/19 05:56 APTT 54.7 Seconds (21.0-31.0) H* 10/04/19 05:20 Hemoglobin A1c 5.7 % (4.5-5.6) H 10/02/19 10:00 Urine Color Dark Yellow 10/02/19 10:30 Urine Appearance Clear (Clear) 10/02/19 10:30 Urine pH 6.0 (4.5-7.5) 10/02/19 10:30 Ur Specific [place] 1.018 (1.000-1.030) 10/02/19 10:30 Urine Protein Negative (Negative) 10/02/19 10:30 Urine Glucose (UA) Negative (Negative) 10/02/19 10:30 Urine Ketones Negative (Negative) 10/02/19 10:30 Urine Nitrite Negative (Negative) 10/02/19 10:30 Ur Leukocyte Esterase Negative (Negative) 10/02/19 10:30 10/02/19 20:27 Escherichia coli Shiga Toxins Test - Preliminary Stool Stool Culture - Preliminary No Salmonella isolated to date, No Shigella isolated to date, No Campylobacter jejuni isolated to date. 10/02/19 13:08 Aerobic Blood Culture - Preliminary Blood No growth in Aerobic bottle after 24 hours. Anaerobic Blood Culture - Preliminary No growth in Anaerobic bottle after 24 hours. 10/02/19 13:09 Aerobic Blood Culture - Preliminary Blood No growth in Aerobic bottle after 24 hours. Anaerobic Blood Culture - Preliminary No growth in Anaerobic bottle after 24 hours.
[2019-10-04] MEDS ORDERED: ATROPINE SULFATE 0.1 MG/ML 10ML SYR IV PRN ×2 (13:05→13:09)
[2019-10-04] MEDS ORDERED: ePHEDrine sulfate 50 MG/ML AMP IV PRN ×2 (13:05→13:09)
--- NOTE | 2019-10-04 13:22 | Anesthesiology Progress Note ---
Date of Service October 04, 2019 Anesthesia Post Procedure Vital Signs Vital Signs: Temp Pulse Resp BP Pulse Ox 10/04/19 12:35 36.5 C 86 20 165/112 H 96 10/04/19 11:37 36.6 C 89 20 149/89 H 94 10/04/19 07:54 36.6 C 75 20 151/75 H 97 10/03/19 23:48 36.8 C 83 18 162/84 H 93 10/03/19 21:00 85 162/95 H 95 10/03/19 15:49 36.6 C 75 18 172/96 H 97 Pain Intensity Abdomen: Pain Intensity: 7 Transfer of Care Handoff Completed per policy Notes Mental Status: alert / awake / arousable Patient Amnestic to Procedure: Yes Nausea / Vomiting: adequately controlled Pain: adequately controlled Airway Patency, RR, SpO2: stable & adequate BP & HR: stable & adequate Hydration State: stable & adequate Anesthetic Complications: no major complications apparent and Pt Satisfied with anesthetic care
--- NOTE | 2019-10-04 13:26 | GI REPORT ---
Patient Name: Raya Palomino Procedure Date: 10/04/2019 12:50 PM Date of : 1940 Admit Type: Inpatient Age: 79 Gender: Female Attending MD: Manuel Hall DO Procedure: Flexible Sigmoidoscopy Providers: Manuel Hall DO Referring MD: Myriam Walker Indications: Abnormal CT of the GI tract Medicines: Monitored Anesthesia Care Complications: No immediate complications. Estimated blood loss: Minimal. Estimated Blood Loss: Estimated blood loss was minimal. Procedure: Pre-Anesthesia Assessment: - Prior to the procedure, a History and Physical was performed, and patient medications, allergies and sensitivities were reviewed. The patient's tolerance of previous anesthesia was reviewed. - The risks and benefits of the procedure and the sedation options and risks were discussed with the patient. All questions were answered and informed consent was obtained. - Patient identification and proposed procedure were verified prior to the procedure by the physician, the nurse and the net lead architect. The procedure was verified in the procedure room. - Pre-procedure physical examination revealed no contraindications to sedation. - ASA Grade Assessment: IV - A patient with severe systemic disease that is a constant threat to life. - After reviewing the risks and benefits, the patient was deemed in satisfactory condition to undergo the procedure. - The anesthesia plan was to use monitored anesthesia care (MAC). - Immediately prior to administration of medications, the patient was re-assessed for adequacy to receive sedatives. - The heart rate, respiratory rate, oxygen saturations, blood pressure, adequacy of pulmonary ventilation, and response to care were monitored throughout the procedure. - The physical status of the patient was re-assessed after the procedure. After obtaining informed consent, the endoscope was passed under direct vision. Throughout the procedure, the patient's blood pressure, pulse, and oxygen saturations were monitored continuously. The Endoscope was introduced through the anus and advanced to the splenic flexure. The flexible sigmoidoscopy was accomplished without difficulty. The patient tolerated the procedure well. The quality of the bowel preparation was adequate. Findings: The digital rectal exam findings include non-thrombosed external hemorrhoids. Pertinent negatives include normal sphincter tone. The rectum, sigmoid colon and descending colon appeared normal. Internal hemorrhoids were found during retroflexion. The hemorrhoids were mild. Impression: - Non-thrombosed external hemorrhoids found on digital rectal exam. - The rectum, sigmoid colon and descending colon are normal. - Internal hemorrhoids. - No specimens collected. Recommendation: - Return patient to hospital tse for ongoing care. - Advance diet as tolerated today. - Perform a colonoscopy at appointment to be scheduled. - Vancomycin 125 mg QID x 10 days. Manuel Hall D.O. Manuel Hall, 10/04/2019 1:25:48 PM This report has been signed electronically. Note Initiated On: 10/04/2019 12:50 PM Number of Addenda: 0 I attest to the content of the Intraoperative Record and orders documented therein, exceptions below {[id number]}
--- NOTE | 2019-10-04 13:27 | Communication Note ---
Date of Service: October 04, 2019 The patient underwent a flexible sigmoidoscopy this afternoon for her proctitis. The right colon, descending colon and rectum appeared to be normal aside from internal hemorrhoids. Recommendations Vancomycin 125 4 times daily for 10 days given the C. difficile PCR Outpatient colonoscopy in 6 to 8 weeks Please call with any additional questions or concerns
[2019-10-04] MEDS ORDERED: LIDOCAINE HCL 2% 2 ML VIAL/AMP(20MG/ML) INFIL ONE (13:32)
[2019-10-04] MEDS ORDERED: PROPOFOL IV EMULSION 10 MG/ML 20 ML VIAL IV ONE (13:32)
[2019-10-04] MEDS: TRAZODONE HCL 50 MG TAB PO SCH ×2 (16:40→19:25)
[2019-10-04 17:38] LABS: Potassium 4.2 mmol/L (3.5-5.1)
--- NOTE | 2019-10-04 17:42 | Hospitalist Progress Note ---
Date of Service October 04, 2019 Assessment & Plan (1) Diarrhea: Patient presented to ED with generalized weakness, diarrhea, abdominal pain. CT demonstrated apparent proctitis. C diff PCR +. C diff toxin assay negative. Sigmoidoscopy performed by GI demonstrated internal hemorrhoids, no mucosal abnormalities. Not definite that patient has C diff colitis, but GI recommended 10 day course of vancomycin due to symptoms and + PCR. Symptoms improved by discharge. (2) Cirrhosis of liver: Cirrhosis of liver incidentally noted on CT. Suspect secondary to fatty liver which was noted on US in 2006. No apparent portal hypertension or other complications. LFT's normal. Did not discuss with patient because she was very upset. Tried to reach son Levon without success; will continue to try to reach him. Follow as clinically indicated. (3) Generalized weakness: Generalized weakness with controlled fall to floor at home without injury. Weakness probably secondary to GI illness. Ambulating with walker independently evening of discharge. (4) Hypokalemia: Serum K 3.2, recheck 4.2. Follow. (5) Persistent atrial fibrillation: Continue metoprolol for rate control. Continue warfarin. INR's 1.3, 1.4; may rise secondary to GI illness. Discharged on usual dose of warfarin. Recheck INR next week if possible. (6) Hypertension: Episodic elevations of blood pressure. Patient rather upset about being in hospital. Best not to increase antihypertensive meds at this time. Continue metoprolol. Follow and titrate Rx. (7) DM type 2 (diabetes mellitus, type 2): Diet controlled. Hemoglobin A1C 5.7. Random blood sugars in low 100's. Follow. (8) Hypothyroidism: Continue levothyroxine. (9) DVT prophylaxis: On warfarin with subtherapeutic INR. Received IV heparin. (10) Discharge planning issues: Discharge to home. Internal Medicine follow-up with Dr. Walker. Subjective Recheck for multiple problems. Patient seen in their room around 1610. Son sylvester. Feels better. No further abdominal pain. Had a few loose stools without melena or hematochezia. Sigmoidoscopy performed earlier today by GI. Very insistent that she goes home today. Review of Systems: Constitutional- no fever. Cardiac- no chest pain. Pulmonary- no cough or SOB. GI- as noted above. - no urinary symptoms. Otherwise, as noted above. Physical Exam Constitutional: no acute distress Respiratory: no respiratory distress Auscultation: lungs clear to auscultation bilaterally Cardiovascular: Rate/Rhythm: + irregularly irregular Heart Sounds: no gallop and no cardiac rub Vessels: no JVD Extremities: no calf tenderness and no edema Gastrointestinal (Abdomen): normal bowel sounds, soft, nontender, no hepatospl enomegaly Skin: no rashes, warm and dry Psychiatric: Orientation: alert Results & Data Vital Signs (Past 12 Hours) Vital Signs Temp Pulse Resp BP Pulse Ox 10/04/19 16:31 78 18 158/96 H 94 10/04/19 13:54 85 18 172/104 H 94 10/04/19 13:39 83 16 179/109 H 94 10/04/19 13:24 36.5 C 80 16 126/82 93 10/04/19 12:35 36.5 C 86 20 165/112 H 96 10/04/19 11:37 36.6 C 89 20 149/89 H 94 10/04/19 07:54 36.6 C 75 20 151/75 H 97 Laboratory Results Laboratory Results - last 24 hr 10/04/19 10/04/19 10/04/19 05:20 05:20 17:05 APTT 54.7 H* PTT Ratio 2.0 Potassium 4.2 D Creatinine 0.70 Est Cr Clr Drug Dosing 81.3 Est GFR ( Amer) 96.9 Est GFR (Non-Af Amer) 83.6 Specimen Hemolysis
--- NOTE | 2019-10-05 07:26 | Discharge Summary ---
Date of Service Date of Admission: 10/02/19 Date of Discharge: 10/04/19 Admission HPI Per Admitting Provider Mrs. Palomino is a 79 yr old F who has significant PMH of persistent afib anticoagulated on warfarin, hx of cardiac arrest/vifb s/p AICD, HTN, HLD, diet controlled T2DM, hypothyroidism, GERD, Depression, OADJD who presents to [facility] ED 12/15 being found on bathroom floor by soon. It was noted pt was trying to make it to bathroom whenever she got weak and lowered herself to the ground. She was unable to get up and tried to crawl causing abrasion to L elbow. Son found her on floor and assisted her to her feet. She also had similar episode yesterday when trying to get off of toilet an was to weak; therefore lowered herself to the floor. Son felt when they found her on floor in bathroom today she was mildly more confused from baseline. Because of this they opted to bring her to ED for evaluation. Pt spouse recently 09/04/19 and she has been living alone since. Son and DIL live 1 mile away and have been checking on her frequently. Son helped her with pills this morning. They have meeting with office of aging to try to obtain services for patient including meals on wheels and potential critical care paramedic. She denies any recent illness, f/c/s, dizziness, lightheaded, syncope, CASTANEDA, chest pain, palpitations, sob, n/v/d, abdominal pain, dysuria, increased urg/freq, hematuria, melena, hematochezia. She typically eats 1 meal a day and picks the rest of day. Frequent drinker of green tea but not much water intake. Denies intentional weight loss. Records reviewed from [facility] rec obtained from patient/son. In ED pt CBC, CMP and urinalysis relatively unremarkable. Her troponin, CK also WNL. TSH low at 0.[address] head/CXR negative for acute abnormality. Principal Diagnosis diarrhea- possible C diff colitis present on admission OTHER NEW / ACUTE DIAGNOSES: hypokalemia subtherapeutic INR cirrhosis of liver, probably secondary to fatty liver Discharge Data Allergies Allergy/AdvReac Type Severity Reaction Status Date / Time clarithromycin Allergy Unknown Unknown Verified 10/04/19 12:34 codeine Allergy Unknown Unknown Verified 10/04/19 12:34 Corticosteroids AdvReac Intermediate BODY Verified 10/04/19 12:34 (Glucocorticoids) SWELLS UP morphine AdvReac Intermediate CONFUSION Verified 10/04/19 12:34 Consultations 10/02/19 11:57 ED Decision to Admit Stat 10/02/19 14:35 Consult Case Management - Discharge Planning Routine 10/03/19 11:47 Consult Gastroenterology Routine Procedures Performed Operation Date: 10/04/19 15:30 Actual Procedures p Flexible Sigmoidoscopy - [facility] Ordered Studies 10/02/19 09:38 CT head/brain wo con Stat 10/02/19 13:39 CT abd pelvis wo con Stat Hospital Course (1) Diarrhea: Patient presented to ED with generalized weakness, diarrhea, abdominal pain. CT demonstrated apparent proctitis. C diff PCR +. C diff toxin assay negative. Sigmoidoscopy performed by GI demonstrated internal hemorrhoids, no mucosal abnormalities. Not definite that patient has C diff colitis, but GI recommended 10 day course of vancomycin due to symptoms and + PCR. Symptoms improved by discharge. (2) Cirrhosis of liver: Cirrhosis of liver incidentally noted on CT. Suspect secondary to fatty liver which was noted on US in 2006. No apparent portal hypertension or other complications. LFT's normal. Did not discuss with patient because she was very upset. Tried to reach son Levon without success; will continue to try to reach him. Follow as clinically indicated. (3) Generalized weakness: Generalized weakness with controlled fall to floor at home without injury. Weakness probably secondary to GI illness. Ambulating with walker independently evening of discharge. (4) Hypokalemia: Serum K 3.2, recheck 4.2. Follow. (5) Persistent atrial fibrillation: Continue metoprolol for rate control. Continue warfarin. INR's 1.3, 1.4; may rise secondary to GI illness. Discharged on usual dose of warfarin. Recheck INR next week if possible. (6) Hypertension: Episodic elevations of blood pressure. Patient rather upset about being in hospital. Best not to increase antihypertensive meds at this time. Continue metoprolol. Follow and titrate Rx. (7) DM type 2 (diabetes mellitus, type 2): Diet controlled. Hemoglobin A1C 5.7. Random blood sugars in low 100's. Follow. (8) Hypothyroidism: Continue levothyroxine. (9) DVT prophylaxis: On warfarin with subtherapeutic INR. Received IV heparin. (10) Discharge planning issues: Discharge to home. Internal Medicine follow-up with Dr. Walker. Total Time Total Time Spent Total Time Spent (In Minutes): 30 Discharge Plan Discharge Items Patient Disposition: Home - Self-Care Reason For Visit: diarrhea, abdominal pain Discharge Diagnosis: diarrhea, abdominal pain- possible C diff Condition on Discharge: Good Activity: Resume your previous activity Non-emergency contact: Primary Care Provider and Hospitalist Call non-emergency contact if: you have any medication questions, your symptoms worsen and your temperature is above 101 Follow-up/Referrals: Haile Walker [Primary Care Provider] - (Please call office for appointment on Monday.) Diet: Heart Healthy Addtl Attending Provider Instructions: MEDICATION CHANGES: Take vancomycin 125 mg 4 times a day for diarrhea. SUMMARY OF TEST RESULTS: Stool test showed C diff in stool. Sigmoidoscopy did not show any significant problems. Potassium day of discharge 4.2 (normal). RECOMMENDED FOLLOW-UP Please have repeat INR checked next week to monitor your warfarin (Coumadin). OTHER INSTRUCTIONS: Seek medical attention if you have: * temperature above 101 * chest pain or trouble breathing * abdominal pain, nausea, vomiting * persistent or worsening diarrhea, dark stools or bloody stools * any unanswered questions or concerns Call [phone] if symptoms are severe. Please take good care of yourself. Call if you have any questions or problems. You can reach a [facility] hospitalist on duty at [facility] 24 hours a day by calling [phone]. My cell # is [phone]. Pending Studies at Discharge: No Stand-Alone Forms: My [facility], Smoking Cessation Medications and DC Order Prescriptions: New vancomycin 125 mg capsule 125 mg PO QID 10 Days Qty: 40 RF: 0 Continued metoprolol succinate 50 mg tablet extended release 24 hr 50 mg PO BID RF: 0 simvastatin 20 mg tablet 20 mg PO HS RF: 0 levothyroxine 125 mcg tablet 125 mcg PO QAM RF: 0 warfarin [Jantoven] 2 mg tablet 2 mg PO MOFR RF: 0 gabapentin 100 mg capsule 100 mg PO HS RF: 0 fluoxetine 20 mg capsule 40 mg PO QAM RF: 0 diclofenac sodium 1 % gel 2 g TOPICAL UD RF: 0 Anxiety & Stress Relief Tablet 1 tab PO QAM RF: 0 trazodone 100 mg tablet 50 mg PO BID RF: 0 multivitamin with minerals [Hair,Skin and Nails] Tablet 1 tab PO QAM RF: 0 cholecalciferol (vitamin D3) [Vitamin D3] 1,000 unit Tablet,Chewable 1,000 unit PO QAM RF: 0 warfarin [Jantoven] 2 mg tablet 4 mg PO SUTUWETHSA RF: 0 Discharge Orders: Discharge Order (Routine); Ordered 10/04/19 Ordered By: Tello Payton/Other Patient Handouts: Infec Clostridium Difficile Admission Data Admit Date/Time: 10/02/19 12:39 Attending Provider: Tello Torres Admit Provider: Westley Rashid Primary Care Provider: Haile Walker Other Providers: Westley Rashid ; Lima Onofre ; Shaneka Sylvester ; [facility] Other Interventions: Discharge Summary Assessment (RN) Last Done: 10/04/19 18:24 DC Date/Time DO NOT enter until pt leaves facility: 10/04/19 19:56
--- NOTE | 2019-10-17 11:03 | Coding Query ---
A supporting diagnosis is required for the test/procedure performed on this patient in order for us to be reimbursed by the patient's insurance. Please provide a supporting diagnosis for the following test/procedure listed below next to the test name along with your signature. *If there is no additional diagnosis for this patient that would support the following test/procedure please document that below next to the test/procedure. Test(s)/Procedure(s) that require a supporting diagnosis: Vitamin B12 DIAGNOSIS:__Confusion____Agree Speech Therapy Eval & Treatment DIAGNOSIS: Confusion Agree Provider Signature: ___Sofie Peguero Date: __10/17/19 Thank you [facility] Once completed, please kindly fax back to [phone] For questions please call [phone] SHELIA
== END 2019-10-04 19:56 | disposition home or self-care (01) ==
LOC: ED 09:01 → 2N 09:01 → SUATTDRO 12:39 → 2N 13:58

== ENCOUNTER 2023-11-19 20:41 | Inpatient (IN) ==
--- NOTE | 2023-11-19 20:53 | Emergency Department Note ---
Impression & Plan Acute alteration in mental status, COVID-19 virus infection, Abdominal pain, lower ED Provider Note NAME: HEIDI BENAVIDES AGE: 83 SEX: F : 1940 ARRIVES VIA: Ambulance INFORMANT: Patient, EMS ED PROVIDER(S): Jerod Jones DO CHIEF COMPLAINT: Altered mental status HPI: The patient is an 83-year-old female who presented to the emergency department for an evaluation of multiple complaints. The patient was noted to be confused with an altered mental status by the prehospital personnel. The reverse logistics analyst are familiar with the patient and were concerned that she was not acting herself. Reportedly the patient took a home COVID test because she had a cough. She also has a history of a recent fall where she was seen in the emergency department. There is no reported nausea or vomiting. There is no reported chest pain but the patient did complain of lower abdominal pain. There is no reported rashes or diarrhea. The patient was found to have a pulse ox that was in the low 90s prior to arrival. ROS: See above HPI for pertinent positives & negatives. A total of 10 systems reviewed and were otherwise negative. PAST MEDICAL HISTORY: See Below PAST SURGICAL HISTORY: See Below FAMILY HISTORY: See Below SOCIAL HISTORY: See Below HOME MEDICATIONS: See Below ALLERGIES: See Below VITALS: See Below PHYSICAL EXAMINATION: GENERAL: The patient is awake and following commands. She is somewhat slow to follow commands. She does not appear to be uncomfortable. EYES: The conjunctivae are clear. The pupils are round and reactive. EARS, NOSE, MOUTH AND THROAT: The nose is without any evidence of any deformity. NECK: The neck is nontender and supple. RESPIRATORY: Diminished breath sounds are noted in both lung avelar. There is no tachypnea or conversational dyspnea CARDIOVASCULAR: Regular rate and rhythm noted there no murmurs rubs or gallops normal S1 normal S2. GASTROINTESTINAL: The abdomen was soft and mildly distended. There is diffuse tenderness to palpation especially in the lower abdomen. There is no specific guarding or rigidity. MUSCULOSKELETAL/EXTREMITIES: There is no evidence of gross deformity full range of motion is noted in the hips and shoulders. SKIN: There is no obvious evidence of any rash. There are no petechiae, pallor or cyanosis noted. NEUROLOGIC: Patient is awake alert and oriented x3 strength is symmetric patellar reflexes are 2+ bilaterally MEDICAL DECISION MAKING: The patient is an 83-year-old female who presented to the emergency department for an evaluation of altered mental status. The patient presented because of congestion but she was found to be confused by her son today as well. Even the prehospital personnel recognize the patient and noticed that she was not her normal baseline. The patient had no focal neurologic deficits but she was slow to answer questions. The patient was not made a stroke alert as the last known well and the onset of symptoms was not clear. The patient was found to have a positive COVID test at home. Her COVID test here was positive as well. She was nonhypoxic or tachycardic. CT of the chest abdomen pelvis did not reveal any acute abnormality that would explain the patient's abdominal pain or the patient's congestion. I do feel it is more likely from the COVID-19. I do feel its most likely was causing the patient's symptoms of altered mental status as well. I discussed patient condition with the on-call [facility]. They agreed to evaluate the patient in the emergency department for further management and disposition. Triage Nursing notes reviewed. Prior medical records reviewed Vital Signs: reviewed and remarkable for no significant abnormalities Differential diagnosis: Etiologies such as appendicitis, diverticulitis, obstruction, inflammatory bowel disease, renal colic, PUD, biliary pathology, pancreatitis, mesenteric ischemia, aortic pathology, infections, genitourinary, UTI, perforated viscus, as well as others were entertained. ER treatment provided: See below Diagnostics interpreted by me: ECG: EKG was obtained in the emergency department. My interpretation is atrial fibrillation at 87 bpm. There is no ectopy. Nonspecific ST depressions were noted with T wave abnormalities. LVH was noted by voltage criteria. This was compared to a tracing from October 02, 2019. No changes were noted. Cardiac Monitoring: An order was placed for continuous cardiac monitoring. The monitor shows a rate of 84 bpm with atrial fibrillation Laboratory studies: As stated above and show below. Imaging studies: See below. Radiographic imaging was reviewed by myself Consultation(s): I discussed this case with Dr. Florian who is on-call for the [facility] group. Past Med/Surg History Medical History (Updated 11/19/23 @ 22:47 by Jerod Jones DO) Cirrhosis of liver noted on CT 10/02/19 DM type 2 (diabetes mellitus, type 2) Persistent atrial fibrillation Dyslipidemia Hypertension ICD (implantable cardioverter-defibrillator) in place [employer] - NOT SURE OF WHEN IT WAS PLACED 09/2019 HAD CHECK FROM ER Ventricular tachycardia HAD CARDIAC ARREST AND THEN ICD PLACED Osteoarthritis Anxiety Depression Hypothyroidism Surgical History Hx of colonoscopy Hx of cardiac cath "2004-demonstrated normal coronary arteries" S/P right knee arthroscopy S/P KATHLEEN-BSO Hx of appendectomy History of total left knee replacement History of total right knee replacement Family History Father Diabetes Mother Diabetes Social History Smoking Status: Never smoker Second Hand Exposure: No; Do You Dip or Chew Tobacco: No; Hx Alcohol Use: No Hx Substance Use: No Preferred Language: [place] Communication Ability: Effective Cytogenetic Technician Required: No Beliefs That Will Affect Care: None marital status: / Current Living Situation: Alone Feels Safe at Home: Yes Assistive Devices: Glasses and Walker Allergies Allergies Allergy/AdvReac Type Severity Reaction Status Date / Time clarithromycin Allergy Unknown Unknown Verified 11/19/23 22:37 codeine Allergy Unknown Unknown Verified 11/19/23 22:37 Corticosteroids AdvReac Intermediate BODY Verified 11/19/23 22:37 (Glucocorticoids) SWELLS UP morphine AdvReac Intermediate CONFUSION Verified 11/19/23 22:37 Home Meds Home Medications Medication Instructions Recorded Confirmed cholecalciferol (vitamin D3) 25 1,000 unit PO QAM 10/02/19 11/19/23 mcg (1,000 unit) chewable tablet (Vitamin D3) gabapentin 100 mg capsule 100 mg PO HS 10/02/19 11/19/23 metoprolol succinate 50 mg 50 mg PO BID 10/02/19 11/19/23 tablet,extended release 24 hr multivitamin with minerals 1 tab PO QAM 10/02/19 11/19/23 (Hair,Skin and Nails tablet) simvastatin 20 mg tablet 20 mg PO HS 10/02/19 11/19/23 cyanocobalamin (vitamin B-12) 1,000 mcg PO QAM 12/24/19 11/19/23 1,000 mcg tablet (Vitamin B-12) melatonin 5 mg capsule 10 mg PO HS PRN Sleep 02/11/20 01/07/24 donepezil 10 mg tablet 10 mg PO DAILY 03/14/23 11/19/23 levothyroxine 100 mcg tablet 100 mcg PO DAILY 03/14/23 11/19/23 memantine 10 mg tablet 10 mg PO QPM 03/14/23 11/19/23 trazodone 100 mg tablet 100 mg PO QPM 03/14/23 11/19/23 duloxetine 20 mg capsule,delayed 20 mg PO QAM 05/19/23 11/19/23 release loratadine 10 mg tablet (Allergy 10 mg PO DAILY PRN allergies 05/19/23 11/19/23 Relief (loratadine)) Previous Rx's Medication Instructions Recorded warfarin 2 mg tablet 4 mg PO DAILY #180 tabs 10/16/23 Results & Data (ED) Vital Signs Vital Signs - 24 hr 11/19/23 21:08 11/19/23 21:08 11/19/23 21:27 Temperature 37.3 C Temperature Source Oral Pulse Rate 97 H 84 Respiratory Rate 20 Respiratory Effort / Characteristics Non-Labored Spontaneous Respiratory Depth Normal Respiratory Pattern Regular Blood Pressure 126/65 Blood Pressure Mean 85 Blood Pressure Position Lying Pulse Oximetry 92 92 Oxygen Delivery Method Room Air Room Air Sepsis Recent Fever Within 48 Hours No Sepsis New/Unexplained Change in Mental Status No Sepsis Action Taken by Nursing No Action Required Home Medications Current Medication List: was personally reviewed by me Laboratory Data Attestation: I reviewed the patient's lab results. 11/19/23 21:05 11/19/23 21:05 Lab Results 11/19/23 11/19/23 Range/Units 21:05 21:15 WBC 7.11 (4.8-10.8) K/ul RBC 4.92 (4.20-5.40) M/uL Hgb 14.9 (12.0-16.0) g/dl POC Hgb 15.3 (12.0-16.0) g/dl Hct 44.3 (37.0-47.0) % POC Hct 45 (37-47) % MCV 90.0 (80.0-100.0) fL MCH 30.3 (25.0-34.0) pg MCHC 33.6 (32.0-36.0) g/dL RDW Std Deviation 45.7 (36.4-46.3) fL RDW Coeff of Lisa 13.8 (11.5-14.5) % Plt Count 194 (130-400) K/uL MPV 10.1 (9.4-12.4) fL Immature Gran % (Auto) 0.4 % Neut % (Auto) 75.4 % Lymph % (Auto) 12.5 % Carlton % (Auto) 11.3 % Eos % (Auto) 0.1 % Baso % (Auto) 0.3 % Neut # (Auto) 5.36 (1.40-6.50) K/uL Lymph # (Auto) 0.89 L (1.20-3.40) K/uL Carlton # (Auto) 0.80 H (0.11-0.59) K/uL Eos # (Auto) 0.01 (0.00-0.50) K/uL Baso # (Auto) 0.02 (0.00-0.20) K/uL Immature Gran # (Auto) 0.03 (0.01-0.20) K/uL PT 18.2 H (9.0-12.0) Seconds INR 1.7 H (0.9-1.1) APTT 32 H (21-31) Seconds PTT Ratio 1.1 VBG pH 7.44 H (7.36-7.41) VBG pCO2 37 L (38-50) mmHg VBG pO2 52 mmHg VBG HCO3 25 mmol/L VBG O2 Saturation 86.8 % VBG Base Excess 1.1 mEq/L POC Sodium 138 (135-144) mmol/L Sodium 136 (136-145) mmol/L POC Potassium 3.6 (3.3-5.0) mmol/L Potassium 3.6 (3.5-5.1) mmol/L POC Chloride 101 (101-112) mmol/L Chloride 103 (98-107) mmol/L Carbon Dioxide 25 (21-32) mmol/L POC Total CO2 24 (24-31) mmol/L Anion Gap 8 (3-11) POC Anion Gap 18.0 (16-25) mmol/L POC BUN 18 (7-18) mg/dl BUN 18 (6-23) mg/dl Creatinine 0.77 (0.6-1.2) mg/dl POC Creatinine 0.7 (0.6-1.3) mg/dl Est Cr Clr Drug Dosing 64.8 ml/min Est GFR ( Amer) 83.9 ml/min Est GFR (Non-Af Amer) 72.4 ml/min BUN/Creatinine Ratio 23.4 H (10-20) Glucose 113 H (70-99(Fasting)) mg/dl POC Glucose (other) 118 H (70-99) mg/dl Lactate 1.2 (0.4-2.0) mmol/L Calcium 8.8 (8.6-10.3) mg/dl POC Ioniz Calcium Myrtle 1.12 (1.12-1.32) mmol/l Magnesium 1.8 (1.7-2.4) mg/dl Total Bilirubin 0.5 (0.2-1.0) mg/dl Direct Bilirubin 0.1 (0-0.2) mg/dl AST 29 (13-39) U/L ALT 17 (7-52) U/L Alkaline Phosphatase 60 (34-104) U/L Ammonia 26.0 (18-72) umol/L Troponin I High Sens 5.1 (0-14) pg/ml Total Protein 6.9 (6.0-8.3) gm/dl Albumin 3.8 (3.4-5.0) gm/dl Procalcitonin < 0.05 (0-0.5) ng/ml Adenovirus (PCR) Not Detected (NotDetected) B. pertussis DNA (PCR) Not Detected (NotDetected) B.parapertussis DNA PCR Not Detected (NotDetected) C. pneumoniae DNA (PCR) Not Detected (NotDetected) Coronavirus OC43 (PCR) Not Detected (NotDetected) Coronavirus HKU1 (PCR) Not Detected (NotDetected) Coronavirus 229E (PCR) Not Detected (NotDetected) SARS-CoV-2 (PCR) DETECTED A* (NotDetected) Coronavirus NL63 (PCR) Not Detected (NotDetected) Human Metapneumovir PCR Not Detected (NotDetected) Influenza Type A (PCR) Not Detected (NotDetected) Influenza Type B (PCR) Not Detected (NotDetected) M. pneumoniae (PCR) Not Detected (NotDetected) Parainfluenza 1 (PCR) Not Detected (NotDetected) Parainfluenza 2 (PCR) Not Detected (NotDetected) Parainfluenza 3 (PCR) Not Detected (NotDetected) Parainfluenza 4 (PCR) Not Detected (NotDetected) RSV (PCR) Not Detected (NotDetected) Entero/Rhino (PCR) Not Detected (NotDetected) Administered Medications Discontinued Medications Ioversol (Optiray 320 125ml) 116 ml IV ONCE ONE Stop: 11/19/23 21:37 Last Admin: 11/19/23 21:36 Dose: 116 ml Documented By: SHARIF Imaging Data Attestation: I personally reviewed and interpreted this imaging study as follows: My Impression: CT of the abdomen and pelvis was obtained in the emergency department. My interpretation is no free air or signs of bowel obstruction, final report below. CT the brain was obtained in the emergency department. My interpretation is no intracranial hemorrhage or mass effect, final report below. CT of the chest was obtained in the emergency department. My interpretation is no free air or signs of infiltrate, final report below. Radiologist's Impression: Head CT 11/19/23 20:50 Exam(s): CT HEAD Without Contrast EXAM: CT Head Without Intravenous Contrast CLINICAL HISTORY: Reason for exam: AMS. TECHNIQUE: Axial computed tomography images of the head/brain without intravenous contrast. CTDI is 38 mGy and DLP is 546.36 mGy-cm. Automated exposure control was utilized for the study. A dose lowering technique was utilized adhering to the principles of ALARA. COMPARISON: 11/04/2023. FINDINGS: Brain: Mild generalized brain atrophy. Decreased attenuation within the deep white matter compatible with microangiopathic disease. No hemorrhage. Ventricles: Unremarkable. No ventriculomegaly. Bones/joints: Unremarkable. No acute fracture. Soft tissues: Unremarkable. Sinuses: Partial opacification of the anterior ethmoid cells which may indicate sequela of prior sinusitis. Remainder of the paranasal sinuses and mastoid air cells are clear. Mastoid air cells: Unremarkable as visualized. No mastoid effusion. IMPRESSION: Chronic changes as described with no acute intracranial hemorrhage or space-occupying lesion. Electronically signed by: Vicenta Antonio MD 11/19/23 21:55 PM Abdomen/Pelvis CT 11/19/23 21:20 Exam(s): CT ABDOMEN + PELVIS With Contrast IV Amt: 116 ml optiray 320 EXAM: CT Abdomen and Pelvis With Intravenous Contrast CLINICAL HISTORY: Reason for exam: pain. TECHNIQUE: Axial computed tomography images of the abdomen and pelvis with intravenous contrast. CTDI is 26.6 mGy and DLP is 1244.65 mGy-cm. Automated exposure control was utilized for the study. A dose lowering technique was utilized adhering to the principles of ALARA. CONTRAST: Patient received 116 ml optiray 320 of IV contrast COMPARISON: 10/02/2019. FINDINGS: Lung bases: Unremarkable. No mass. No consolidation. ABDOMEN: Liver: Unremarkable. No mass. Gallbladder and bile ducts: Unremarkable. No calcified stones. No ductal dilation. Pancreas: Unremarkable. No mass. No ductal dilation. Spleen: Unremarkable. No splenomegaly. Adrenals: Unremarkable. No mass. Kidneys and ureters: Unremarkable. No solid mass. No hydronephrosis. Stomach and bowel: Moderate to abundant fecal debris within the distal colon. Remainder of the colon unremarkable. No obstruction. No mucosal thickening. PELVIS: Appendix: No findings to suggest acute appendicitis. Bladder: Unremarkable. No mass. Reproductive: Nonvisualized uterus suggestive of previous hysterectomy. ABDOMEN and PELVIS: Intraperitoneal space: Unremarkable. No free air. No significant fluid collection. Bones/joints: Multilevel degenerative disease of the spine, bilateral SI joints and hips. No acute fracture. No dislocation. Soft tissues: Unremarkable. Vasculature: Calcified atherosclerotic disease of aorta with tortuosity but no aneurysm or dissection. Lymph nodes: Unremarkable. No enlarged lymph nodes. Tubes, lines and devices: Pacemaker leads in place otherwise normal cardiac size. IMPRESSION: Mild to abundant fecal debris within the distal colon. Otherwise no acute process within the abdomen and pelvis. Electronically signed by: Vicenta Antonio MD 11/19/23 22:03 PM Chest CTA 11/19/23 21:20 Exam(s): CTA CHEST IV Amt: 116 ml optiray 320 EXAM: CT Angiography Chest With Intravenous Contrast CLINICAL HISTORY: Reason for exam: PE. TECHNIQUE: Axial computed tomographic angiography images of the chest with intravenous contrast. CTDI is 21.99 mGy and DLP is 737.66 mGy-cm. Automated exposure control was utilized for the study. A dose lowering technique was utilized adhering to the principles of ALARA. MIP reconstructed images were created and reviewed. COMPARISON: None. FINDINGS: Pulmonary arteries: Unremarkable. Normal enhancement of the pulmonary arteries with no filling defect to suggest pulmonary embolus. Aorta: Calcified atherosclerotic disease of aorta with tortuosity. No aneurysm or dissection. Lungs: Bilateral lower lobe posterior dependent atelectasis, otherwise lung avelar are clear. Pleural space: Biapical pleural thickening with subpleural scarring versus atelectasis. No significant effusion. No pneumothorax. Heart: Unremarkable. No cardiomegaly. No significant pericardial effusion. No evidence of RV dysfunction. Bones/joints: No acute fracture. No dislocation. Soft tissues: Unremarkable. Lymph nodes: Unremarkable. No enlarged lymph nodes. Tubes, lines and devices: There is a left-sided pacemaker in place. Other findings: Multilevel degenerative disease of the spine. IMPRESSION: 1. No pulmonary embolus or aortic dissection. 2. Bilateral lower lobe/posterior dependent atelectasis otherwise no acute cardiopulmonary disease. Electronically signed by: Vicenta Antonio MD 11/19/23 21:59 PM Discharge Plan Visit Data Chief Complaint: Abdominal Pain Stated Complaint: +COVID w/ Body Aches, abd. pain, weakness, AMS ED Provider: Jerod Jones Discharge Problem: Acute alteration in mental status, COVID-19 virus infection, Abdominal pain, lower Patient Disposition: Being Evaluated by Hospitalist Forms Stand Alone Forms: My [facility] Prescriptions Prescriptions: No Action warfarin 2 mg tablet 4 mg PO DAILY Qty: 180 3RF Protocol: Dose Management Condition: Monday Dose/Route: 4 mg Instruction: 2 x 2 mg tablets Condition: Monday Dose/Route: 4 mg Instruction: 2 x 2 mg tablets Condition: Monday Dose/Route: 4 mg Instruction: 2 x 2 mg tablets Condition: Monday Dose/Route: 2 mg Instruction: 1 x 2 mg tablet Condition: Dose/Route: 4 mg Instruction: 2 x 2 mg tablets Condition: Monday Dose/Route: 4 mg Instruction: 2 x 2 mg tablets Condition: Monday Dose/Route: 4 mg Instruction: 2 x 2 mg tablets Protocol Text: Adjustment Start Date: 11/09/23 INR Value: 2.0 INR Date: 11/09/23 Recheck Date: 11/23/23 levothyroxine 100 mcg tablet 100 mcg PO DAILY donepezil 10 mg tablet 10 mg PO DAILY memantine 10 mg tablet 10 mg PO QPM loratadine [Allergy Relief (loratadine)] 10 mg tablet 10 mg PO DAILY PRN (Reason: allergies) duloxetine 20 mg capsule,delayed release(DR/EC) 20 mg PO QAM metoprolol succinate 50 mg tablet extended release 24 hr 50 mg PO BID simvastatin 20 mg tablet 20 mg PO HS gabapentin 100 mg capsule 100 mg PO HS Hair,Skin and Nails Tablet 1 tab PO QAM cholecalciferol (vitamin D3) [Vitamin D3] 1,000 unit Tablet,Chewable 1,000 unit PO QAM trazodone 100 mg tablet 100 mg PO QPM Patient Comments: Son brought in pill box and there is a whole tablet in with the eveing meds. (10-02-19) cyanocobalamin (vitamin B-12) [Vitamin B-12] 1,000 mcg Tablet 1,000 mcg PO QAM melatonin 5 mg Capsule 10 mg PO HS PRN (Reason: Sleep) Referrals Referrals: Haile Walker [Primary Care Provider] -
[2023-11-19 21:22] LABS: Base Excess VBG 1.1 mEq/L; HCO3 VBG 25 mmol/L; Oxygen Saturation VBG 86.8 %; PCO2 VBG 37 mmHg (38-50); PO2 VBG 52 mmHg; pH VBG 7.44 (7.36-7.41)
[2023-11-19 21:28] LABS: iSTAT Creatinine 0.7 mg/dl (0.6-1.3); iSTAT Hemoglobin 15.3 g/dl (12.0-16.0); iSTAT Ionized Calcium 1.12 mmol/l (1.12-1.32); iSTAT Potassium 3.6 mmol/L (3.3-5.0)
[2023-11-19 21:28] LABS: Basophils # (auto) 0.02 K/uL (0.00-0.20); Basophils % (auto) 0.3 %; Eosinophils # (auto) 0.01 K/uL (0.00-0.50); Eosinophils % (auto) 0.1 %; Hematocrit (blood only) 44.3 % (37.0-47.0); Hemoglobin 14.9 g/dl (12.0-16.0); Immature Granulocytes # (auto) 0.03 K/uL (0.01-0.20); Immature Granulocytes % (auto) 0.4 %; Lymphocytes # (auto) 0.89 K/uL (1.20-3.40); Lymphocytes % (auto) 12.5 %; Mean Corpuscular Hemoglobin 30.3 pg (25.0-34.0); Mean Corpuscular Hgb Conc 33.6 g/dL (32.0-36.0); Mean Platelet Volume 10.1 fL (9.4-12.4); Monocytes % (auto) 11.3 %; Neutrophils # (auto) 5.36 K/uL (1.40-6.50); Neutrophils % (auto) 75.4 %; Platelet Count 194 K/uL (130-400); RDW Coefficient of Variation 13.8 % (11.5-14.5); RDW Standard Deviation 45.7 fL (36.4-46.3); Red Blood Count 4.92 M/uL (4.20-5.40); White Blood Count 7.11 K/ul (4.8-10.8)
[2023-11-19] MEDS ORDERED: OPTIRAY 320 125ml IV ONE (21:36)
[2023-11-19 21:43] LABS: Albumin Level 3.8 gm/dl (3.4-5.0); BUN Creatinine Ratio 23.4 (10-20); Bilirubin Direct 0.1 mg/dl (0-0.2); Bilirubin,Total 0.5 mg/dl (0.2-1.0); Calcium 8.8 mg/dl (8.6-10.3); Creatinine Clr Calc Pharmacy 64.8 ml/min; Est GFR (African American) 83.9 ml/min; Est GFR (Non-African American) 72.4 ml/min; Magnesium 1.8 mg/dl (1.7-2.4); Potassium 3.6 mmol/L (3.5-5.1); Total Protein 6.9 gm/dl (6.0-8.3)
[2023-11-19 21:51] LABS: Troponin I High Sensitivity 5.1 pg/ml (0-14)
[2023-11-19 21:53] LABS: INR 1.7 (0.9-1.1); Partial Thromboplastin Ratio 1.1; Partial Thromboplastin Time 32 Seconds (21-31); Prothrombin Time 18.2 Seconds (9.0-12.0)
--- NOTE | 2023-11-19 21:55 | CT Scan Report ---
Exam(s): CT HEAD Without Contrast EXAM: CT Head Without Intravenous Contrast CLINICAL HISTORY: Reason for exam: AMS. TECHNIQUE: Axial computed tomography images of the head/brain without intravenous contrast. CTDI is 38 mGy and DLP is 546.36 mGy-cm. Automated exposure control was utilized for the study. A dose lowering technique was utilized adhering to the principles of ALARA. COMPARISON: 11/04/2023. FINDINGS: Brain: Mild generalized brain atrophy. Decreased attenuation within the deep white matter compatible with microangiopathic disease. No hemorrhage. Ventricles: Unremarkable. No ventriculomegaly. Bones/joints: Unremarkable. No acute fracture. Soft tissues: Unremarkable. Sinuses: Partial opacification of the anterior ethmoid cells which may indicate sequela of prior sinusitis. Remainder of the paranasal sinuses and mastoid air cells are clear. Mastoid air cells: Unremarkable as visualized. No mastoid effusion. IMPRESSION: Chronic changes as described with no acute intracranial hemorrhage or space-occupying lesion. Electronically signed by: Vicenta Antonio MD 11/19/23 21:55 PM
--- NOTE | 2023-11-19 22:00 | CT Scan Report ---
Exam(s): CTA CHEST IV Amt: 116 ml optiray 320 EXAM: CT Angiography Chest With Intravenous Contrast CLINICAL HISTORY: Reason for exam: PE. TECHNIQUE: Axial computed tomographic angiography images of the chest with intravenous contrast. CTDI is 21.99 mGy and DLP is 737.66 mGy-cm. Automated exposure control was utilized for the study. A dose lowering technique was utilized adhering to the principles of ALARA. MIP reconstructed images were created and reviewed. COMPARISON: None. FINDINGS: Pulmonary arteries: Unremarkable. Normal enhancement of the pulmonary arteries with no filling defect to suggest pulmonary embolus. Aorta: Calcified atherosclerotic disease of aorta with tortuosity. No aneurysm or dissection. Lungs: Bilateral lower lobe posterior dependent atelectasis, otherwise lung avelar are clear. Pleural space: Biapical pleural thickening with subpleural scarring versus atelectasis. No significant effusion. No pneumothorax. Heart: Unremarkable. No cardiomegaly. No significant pericardial effusion. No evidence of RV dysfunction. Bones/joints: No acute fracture. No dislocation. Soft tissues: Unremarkable. Lymph nodes: Unremarkable. No enlarged lymph nodes. Tubes, lines and devices: There is a left-sided pacemaker in place. Other findings: Multilevel degenerative disease of the spine. IMPRESSION: 1. No pulmonary embolus or aortic dissection. 2. Bilateral lower lobe/posterior dependent atelectasis otherwise no acute cardiopulmonary disease. Electronically signed by: Vicenta Antonio MD 11/19/23 21:59 PM
--- NOTE | 2023-11-19 22:04 | CT Scan Report ---
Exam(s): CT ABDOMEN + PELVIS With Contrast IV Amt: 116 ml optiray 320 EXAM: CT Abdomen and Pelvis With Intravenous Contrast CLINICAL HISTORY: Reason for exam: pain. TECHNIQUE: Axial computed tomography images of the abdomen and pelvis with intravenous contrast. CTDI is 26.6 mGy and DLP is 1244.65 mGy-cm. Automated exposure control was utilized for the study. A dose lowering technique was utilized adhering to the principles of ALARA. CONTRAST: Patient received 116 ml optiray 320 of IV contrast COMPARISON: 10/02/2019. FINDINGS: Lung bases: Unremarkable. No mass. No consolidation. ABDOMEN: Liver: Unremarkable. No mass. Gallbladder and bile ducts: Unremarkable. No calcified stones. No ductal dilation. Pancreas: Unremarkable. No mass. No ductal dilation. Spleen: Unremarkable. No splenomegaly. Adrenals: Unremarkable. No mass. Kidneys and ureters: Unremarkable. No solid mass. No hydronephrosis. Stomach and bowel: Moderate to abundant fecal debris within the distal colon. Remainder of the colon unremarkable. No obstruction. No mucosal thickening. PELVIS: Appendix: No findings to suggest acute appendicitis. Bladder: Unremarkable. No mass. Reproductive: Nonvisualized uterus suggestive of previous hysterectomy. ABDOMEN and PELVIS: Intraperitoneal space: Unremarkable. No free air. No significant fluid collection. Bones/joints: Multilevel degenerative disease of the spine, bilateral SI joints and hips. No acute fracture. No dislocation. Soft tissues: Unremarkable. Vasculature: Calcified atherosclerotic disease of aorta with tortuosity but no aneurysm or dissection. Lymph nodes: Unremarkable. No enlarged lymph nodes. Tubes, lines and devices: Pacemaker leads in place otherwise normal cardiac size. IMPRESSION: Mild to abundant fecal debris within the distal colon. Otherwise no acute process within the abdomen and pelvis. Electronically signed by: Vicenta Antonio MD 11/19/23 22:03 PM
[2023-11-19 22:11] LABS: Adenovirus PCR Not Detected (NotDetected); Bordetella parapertussis PCR Not Detected (NotDetected); Bordetella pertussis PCR Not Detected (NotDetected); Chlamydia pneumoniae PCR Not Detected (NotDetected); Coronavirus 229E PCR Not Detected (NotDetected); Coronavirus HKU1 PCR Not Detected (NotDetected); Coronavirus NL63 PCR Not Detected (NotDetected); Coronavirus OC43PCR Not Detected (NotDetected); Human Metapneumovirus PCR Not Detected (NotDetected); Influenza A PCR Not Detected (NotDetected); Influenza B PCR Not Detected (NotDetected); Mycoplasma pneumoniae PCR Not Detected (NotDetected); Parainfluenza Virus 1 PCR Not Detected (NotDetected); Parainfluenza Virus 2 PCR Not Detected (NotDetected); Parainfluenza Virus 3 PCR Not Detected (NotDetected); Parainfluenza Virus 4 PCR Not Detected (NotDetected); Respiratory Syncytial VirusPCR Not Detected (NotDetected); Rhinovirus/Enterovirus PCR Not Detected (NotDetected)
[2023-11-19 22:14] LABS: Coronavirus CoV-2 (COVID19)PCR DETECTED (NotDetected)
--- NOTE | 2023-11-20 04:01 | History & Physical Report ---
Date of Service November 20, 2023 Assessment & Plan (1) Acute alteration in mental status: Plan: 83-year-old female with past medical history significant for hypothyroidism, hyperlipidemia, persistent atrial fibrillation, history of ventricular fibrillation, history of cardiac arrest s/p ICD implant, history of alcohol induced cardiomyopathy resolved, normal coronaries by cardiac cath in December 2014, hypertension, hyperlipidemia ,hypothyroidism, history of GI bleed., History of peptic ulcer, osteoarthritis, depression, anxiety, who lives alone and ambulates with walker and son lives about a mile from her was brought in because of confusion and abdominal pain. Patient is hard of hearing. Can tell her name. Knows that she is in the hospital. Denies headache. Denies chest pain. Denies shortness of breath. Denies nausea. Difficult to get any history from the patient. Son states she was diagnosed with COVID yesterday. She has 1 day symptoms of diarrhea, abdominal discomfort. Has mild cough. No fevers. When he went to check on her she was confused and could not figure out simple stuff and was brought in here. Currently medically stable. Says she wants more blankets. Acute alteration mental status Mostly from COVID CT head is okay We will follow urinalysis Gentle fluids Supportive care Monitor Abdominal discomfort CT pelvis showing constipation Stool softeners COVID Saturating okay on room air CTA chest unremarkable COVID precautions Persistent atrial fibrillation On metoprolol On Coumadin Monitor PT/INR History of cardiac arrest status of ICD implant History of alcohol induced cardiomyopathy resolved Echo in 09/2022 shows normal EF Hypertension On metoprolol Will monitor Hypothyroidism On Synthyroid Follow TSH Hyperlipidemia Statin DVT prophylaxis On Coumadin. INR subtherapeutic. Lovenox until INR therapeutic Disposition Med/tele Full code as per discussion with the son History of Present Illness Chief Complaint: Confusion and abdominal pain Primary Care Provider: Haile Walker 83-year-old female with past medical history significant for hypothyroidism, hyperlipidemia, persistent atrial fibrillation, history of ventricular fibrillation, history of cardiac arrest s/p ICD implant, history of alcohol induced cardiomyopathy resolved, normal coronaries by cardiac cath in December 2014, hypertension, hyperlipidemia ,hypothyroidism, history of GI bleed., History of peptic ulcer, osteoarthritis, depression, anxiety, who lives alone and ambulates with walker and son lives about a mile from her was brought in because of confusion and abdominal pain. Patient is hard of hearing. Can tell her name. Knows that she is in the hospital. Denies headache. Denies chest pain. Denies shortness of breath. Denies nausea. Difficult to get any history from the patient. Son states she was diagnosed with COVID yesterday. She has 1 day symptoms of diarrhea, abdominal discomfort. Has mild cough. No fevers. When he went to check on her she was confused and could not figure out simple stuff and was brought in here. Currently medically stable. Past medical history. As mentioned above Past surgical history. Bilateral knee arthroplasty. Cardiac cath. Colonoscopy. EGD. EGD with biopsy. S/p ICD. Right knee arthroscopy. Appe ndectomy. Cataracts. Sacroiliac joint injection. Sigmoidoscopy. Total abdominal hysterectomy with removal of tubes. Social history.-. Lives alone. No smoking. No alcohol use currently. No drug use. Family history. Father had diabetes. Part of stomach removed. Mother had diabetes. Thyroid disorder. Sister has hypertension. Allergies Allergy/AdvReac Type Severity Reaction Status Date / Time clarithromycin Allergy Unknown Unknown Verified 11/19/23 22:37 codeine Allergy Unknown Unknown Verified 11/19/23 22:37 Corticosteroids AdvReac Intermediate BODY Verified 11/19/23 22:37 (Glucocorticoids) SWELLS UP morphine AdvReac Intermediate CONFUSION Verified 11/19/23 22:37 Home Medications Medication Instructions Recorded Confirmed Type cholecalciferol (vitamin D3) 25 1,000 unit PO QAM 10/02/19 11/19/23 History mcg (1,000 unit) chewable tablet (Vitamin D3) gabapentin 100 mg capsule 100 mg PO HS 10/02/19 11/19/23 History metoprolol succinate 50 mg 50 mg PO BID 10/02/19 11/19/23 History tablet,extended release 24 hr multivitamin with minerals 1 tab PO QAM 10/02/19 11/19/23 History (Hair,Skin and Nails tablet) simvastatin 20 mg tablet 20 mg PO HS 10/02/19 11/19/23 History cyanocobalamin (vitamin B-12) 1,000 mcg PO QAM 12/24/19 11/19/23 History 1,000 mcg tablet (Vitamin B-12) melatonin 5 mg capsule 10 mg PO HS PRN Sleep 12/24/19 11/19/23 History donepezil 10 mg tablet 10 mg PO DAILY 03/14/23 11/19/23 History levothyroxine 100 mcg tablet 100 mcg PO DAILY 03/14/23 11/19/23 History memantine 10 mg tablet 10 mg PO QPM 03/14/23 11/19/23 History trazodone 100 mg tablet 100 mg PO QPM 03/14/23 11/19/23 History duloxetine 20 mg capsule,delayed 20 mg PO QAM 05/19/23 11/19/23 History release loratadine 10 mg tablet (Allergy 10 mg PO DAILY PRN allergies 05/19/23 11/19/23 History Relief (loratadine)) warfarin 2 mg tablet 4 mg PO DAILY #180 tabs 10/16/23 11/19/23 Rx Past Med/Surg History Medical History (Updated 11/19/23 @ 22:47 by Jerod Jones DO) Cirrhosis of liver noted on CT 10/02/19 DM type 2 (diabetes mellitus, type 2) Persistent atrial fibrillation Dyslipidemia Hypertension ICD (implantable cardioverter-defibrillator) in place [employer] - NOT SURE OF WHEN IT WAS PLACED 09/2019 HAD CHECK FROM ER Ventricular tachycardia HAD CARDIAC ARREST AND THEN ICD PLACED Osteoarthritis Anxiety Depression Hypothyroidism Surgical History Hx of colonoscopy Hx of cardiac cath "2004-demonstrated normal coronary arteries" S/P right knee arthroscopy S/P KATHLEEN-BSO Hx of appendectomy History of total left knee replacement History of total right knee replacement Family History Father Diabetes Mother Diabetes Social History Smoking Status: Never smoker Second Hand Exposure: No; Do You Dip or Chew Tobacco: No; Hx Alcohol Use: No Hx Substance Use: No Preferred Language: Spanish Communication Ability: Effective Postie Required: No Beliefs That Will Affect Care: None marital status: / Current Living Situation: Alone Feels Safe at Home: Yes Assistive Devices: Glasses and Walker Review of Systems Review of Systems: Unobtainable due to cognitive status Physical Exam Physical Exam: General- Not in distress. Head- atraumatic Eyes- PERRL. ENT- oropharynx clear Neck- supple, no JVD. Lungs- clear to auscultation n wheezing or crackles. Heart- regular rhythm; no murmur, no gallop. Abdomen- normal bowel sounds, soft, nontender, no distension. Extremities- lower extremity edema present, no erythema seen. Neuro- alert, oriented x 2; PERRL, no facial palsy; no dysarthria;. Skin- warm & dry Results & Data Results & Data Vital Signs (Past 12 Hours) Vital Signs Temp Pulse Resp BP Pulse Ox O2 Del Method 11/20/23 03:20 80 22 105/64 95 11/20/23 01:27 77 11/19/23 21:27 84 11/19/23 21:08 92 Room Air 11/19/23 21:08 37.3 C 97 H 20 126/65 92 Room Air Diagnostic Findings Laboratory Results WBC 7.11 K/ul (4.8-10.8) 11/19/23 21:05 RBC 4.92 M/uL (4.20-5.40) 11/19/23 21:05 Hgb 14.9 g/dl (12.0-16.0) 11/19/23 21:05 POC Hgb 15.3 g/dl (12.0-16.0) 11/19/23 21:15 Hct 44.3 % (37.0-47.0) 11/19/23 21:05 POC Hct 45 % (37-47) 11/19/23 21:15 MCV 90.0 fL (80.0-100.0) 11/19/23 21: MCH 30.3 pg (25.0-34.0) 11/19/23 21:05 MCHC 33.6 g/dL (32.0-36.0) 11/19/23 21:05 RDW Std Deviation 45.7 fL (36.4-46.3) 11/19/23 21:05 RDW Coeff of Lisa 13.8 % (11.5-14.5) 11/19/23 21: Plt Count 194 K/uL (130-400) 11/19/23 21: MPV 10.1 fL (9.4-12.4) 11/19/23 21:05 Immature Gran % (Auto) 0.4 % 11/19/23 21: Neut % (Auto) 75.4 % 11/19/23 21:05 Lymph % (Auto) 12.5 % 11/19/23 21:05 Polk % (Auto) 11.3 % 11/19/23 21:05 Eos % (Auto) 0.1 % 11/19/23 21:05 Baso % (Auto) 0.3 % 11/19/23 21:05 Neut # (Auto) 5.36 K/uL (1.40-6.50) 11/19/23 21:05 Lymph # (Auto) 0.89 K/uL (1.20-3.40) L 11/19/23 21:05 Polk # (Auto) 0.80 K/uL (0.11-0.59) H 11/19/23 21:05 Eos # (Auto) 0.01 K/uL (0.00-0.50) 11/19/23 21:05 Baso # (Auto) 0.02 K/uL (0.00-0.20) 11/19/23 21:05 Immature Gran # (Auto) 0.03 K/uL (0.01-0.20) 11/19/23 21:05 PT 18.2 Seconds (9.0-12.0) H 11/19/23 21:05 INR 1.7 (0.9-1.1) H 11/19/23 21:05 APTT 32 Seconds (21-31) H 11/19/23 21:05 PTT Ratio 1.1 11/19/23 21:05 VBG pH 7.44 (7.36-7.41) H 11/19/23 21:05 VBG pCO2 37 mmHg (38-50) L 11/19/23 21:05 VBG pO2 52 mmHg 11/19/23 21:05 VBG HCO3 25 mmol/L 11/19/23 21:05 VBG O2 Saturation 86.8 % 11/19/23 21:05 VBG Base Excess 1.1 mEq/L 11/19/23 21:05 POC Sodium 138 mmol/L (135-144) 11/19/23 21:15 Sodium 136 mmol/L (136-145) 11/19/23 21:05 POC Potassium 3.6 mmol/L (3.3-5.0) 11/19/23 21:15 Potassium 3.6 mmol/L (3.5-5.1) 11/19/23 21:05 POC Chloride 101 mmol/L (101-112) 11/19/23 21:15 Chloride 103 mmol/L (98-107) 11/19/23 21:05 Carbon Dioxide 25 mmol/L (21-32) 11/19/23 21:05 POC Total CO2 24 mmol/L (24-31) 11/19/23 21:15 Anion Gap 8 (3-11) 11/19/23 21:05 POC Anion Gap 18.0 mmol/L (16-25) 11/19/23 21:15 POC BUN 18 mg/dl (7-18) 11/19/23 21:15 BUN 18 mg/dl (6-23) 11/19/23 21:05 Creatinine 0.77 mg/dl (0.6-1.2) 11/19/23 21:05 POC Creatinine 0.7 mg/dl (0.6-1.3) 11/19/23 21:15 Est Cr Clr Drug Dosing 64.8 ml/min 11/19/23 21:05 Est GFR ( Amer) 83.9 ml/min 11/19/23 21:05 Est GFR (Non-Af Amer) 72.4 ml/min 11/19/23 21:05 BUN/Creatinine Ratio 23.4 (10-20) H 11/19/23 21:05 Glucose 113 mg/dl (70-99(Fasting)) H 11/19/23 21:05 POC Glucose (other) 118 mg/dl (70-99) H 11/19/23 21:15 Lactate 1.2 mmol/L (0.4-2.0) 11/19/23 21:05 Calcium 8.8 mg/dl (8.6-10.3) 11/19/23 21:05 POC Ioniz Calcium Myrtle 1.12 mmol/l (1.12-1.32) 11/19/23 21:15 Magnesium 1.8 mg/dl (1.7-2.4) 11/19/23 21:05 Total Bilirubin 0.5 mg/dl (0.2-1.0) 11/19/23 21:05 Direct Bilirubin 0.1 mg/dl (0-0.2) 11/19/23 21:05 AST 29 U/L (13-39) 11/19/23 21:05 ALT 17 U/L (7-52) 11/19/23 21:05 Alkaline Phosphatase 60 U/L (34-104) 11/19/23 21:05 Ammonia 26.0 umol/L (18-72) 11/19/23 21:05 Troponin I High Sens 5.1 pg/ml (0-14) 11/19/23 21:05 Total Protein 6.9 gm/dl (6.0-8.3) 11/19/23 21:05 Albumin 3.8 gm/dl (3.4-5.0) 11/19/23 21:05 Procalcitonin < 0.05 ng/ml (0-0.5) 11/19/23 21:05 Adenovirus (PCR) Not Detected (NotDetected) 11/19/23 21:05 B. pertussis DNA (PCR) Not Detected (NotDetected) 11/19/23 21:05 B.parapertussis DNA PCR Not Detected (NotDetected) 11/19/23 21:05 C. pneumoniae DNA (PCR) Not Detected (NotDetected) 11/19/23 21:05 Coronavirus OC43 (PCR) Not Detected (NotDetected) 11/19/23 21:05 Coronavirus HKU1 (PCR) Not Detected (NotDetected) 11/19/23 21:05 Coronavirus 229E (PCR) Not Detected (NotDetected) 11/19/23 21:05 SARS-CoV-2 (PCR) DETECTED (NotDetected) A* 11/19/23 21:05 Coronavirus NL63 (PCR) Not Detected (NotDetected) 11/19/23 21:05 Human Metapneumovir PCR Not Detected (NotDetected) 11/19/23 21:05 Influenza Type A (PCR) Not Detected (NotDetected) 11/19/23 21:05 Influenza Type B (PCR) Not Detected (NotDetected) 11/19/23 21:05 M. pneumoniae (PCR) Not Detected (NotDetected) 11/19/23 21:05 Parainfluenza 1 (PCR) Not Detected (NotDetected) 11/19/23 21:05 Parainfluenza 2 (PCR) Not Detected (NotDetected) 11/19/23 21:05 Parainfluenza 3 (PCR) Not Detected (NotDetected) 11/19/23 21:05 Parainfluenza 4 (PCR) Not Detected (NotDetected) 11/19/23 21:05 RSV (PCR) Not Detected (NotDetected) 11/19/23 21:05 Entero/Rhino (PCR) Not Detected (NotDetected) 11/19/23 21:[address] 11/19/23 20:50 Exam(s): CT HEAD Without Contrast EXAM: CT Head Without Intravenous Contrast CLINICAL HISTORY: Reason for exam: AMS. TECHNIQUE: Axial computed tomography images of the head/brain without intravenous contrast. CTDI is 38 mGy and DLP is 546.36 mGy-cm. Automated exposure control was utilized for the study. A dose lowering technique was utilized adhering to the principles of ALARA. COMPARISON: 11/04/2023. FINDINGS: Brain: Mild generalized brain atrophy. Decreased attenuation within the deep white matter compatible with microangiopathic disease. No hemorrhage. Ventricles: Unremarkable. No ventriculomegaly. Bones/joints: Unremarkable. No acute fracture. Soft tissues: Unremarkable. Sinuses: Partial opacification of the anterior ethmoid cells which may indicate sequela of prior sinusitis. Remainder of the paranasal sinuses and mastoid air cells are clear. Mastoid air cells: Unremarkable as visualized. No mastoid effusion. IMPRESSION: Chronic changes as described with no acute intracranial hemorrhage or space-occupying lesion. Electronically signed by: Vicenta Antonio MD 11/19/23 21:55 PM Abdomen/Pelvis CT 11/19/23 21:20 Exam(s): CT ABDOMEN + PELVIS With Contrast IV Amt: 116 ml optiray 320 EXAM: CT Abdomen and Pelvis With Intravenous Contrast CLINICAL HISTORY: Reason for exam: pain. TECHNIQUE: Axial computed tomography images of the abdomen and pelvis with intravenous contrast. CTDI is 26.6 mGy and DLP is 1244.65 mGy-cm. Automated exposure control was utilized for the study. A dose lowering technique was utilized adhering to the principles of ALARA. CONTRAST: Patient received 116 ml optiray 320 of IV contrast COMPARISON: 10/02/2019. FINDINGS: Lung bases: Unremarkable. No mass. No consolidation. ABDOMEN: Liver: Unremarkable. No mass. Gallbladder and bile ducts: Unremarkable. No calcified stones. No ductal dilation. Pancreas: Unremarkable. No mass. No ductal dilation. Spleen: Unremarkable. No splenomegaly. Adrenals: Unremarkable. No mass. Kidneys and ureters: Unremarkable. No solid mass. No hydronephrosis. Stomach and bowel: Moderate to abundant fecal debris within the distal colon. Remainder of the colon unremarkable. No obstruction. No mucosal thickening. PELVIS: Appendix: No findings to suggest acute appendicitis. Bladder: Unremarkable. No mass. Reproductive: Nonvisualized uterus suggestive of previous hysterectomy. ABDOMEN and PELVIS: Intraperitoneal space: Unremarkable. No free air. No significant fluid collection. Bones/joints: Multilevel degenerative disease of the spine, bilateral SI joints and hips. No acute fracture. No dislocation. Soft tissues: Unremarkable. Vasculature: Calcified atherosclerotic disease of aorta with tortuosity but no aneurysm or dissection. Lymph nodes: Unremarkable. No enlarged lymph nodes. Tubes, lines and devices: Pacemaker leads in place otherwise normal cardiac size. IMPRESSION: Mild to abundant fecal debris within the distal colon. Otherwise no acute process within the abdomen and pelvis. Electronically signed by: Vicenta Antonio MD 11/19/23 22:03 PM Chest CTA 11/19/23 21:20 Exam(s): CTA CHEST IV Amt: 116 ml optiray 320 EXAM: CT Angiography Chest With Intravenous Contrast CLINICAL HISTORY: Reason for exam: PE. TECHNIQUE: Axial computed tomographic angiography images of the chest with intravenous contrast. CTDI is 21.99 mGy and DLP is 737.66 mGy-cm. Automated exposure control was utilized for the study. A dose lowering technique was utilized adhering to the principles of ALARA. MIP reconstructed images were created and reviewed. COMPARISON: None. FINDINGS: Pulmonary arteries: Unremarkable. Normal enhancement of the pulmonary arteries with no filling defect to suggest pulmonary embolus. Aorta: Calcified atherosclerotic disease of aorta with tortuosity. No aneurysm or dissection. Lungs: Bilateral lower lobe posterior dependent atelectasis, otherwise lung avelar are clear. Pleural space: Biapical pleural thickening with subpleural scarring versus atelectasis. No significant effusion. No pneumothorax. Heart: Unremarkable. No cardiomegaly. No significant pericardial effusion. No evidence of RV dysfunction. Bones/joints: No acute fracture. No dislocation. Soft tissues: Unremarkable. Lymph nodes: Unremarkable. No enlarged lymph nodes. Tubes, lines and devices: There is a left-sided pacemaker in place. Other findings: Multilevel degenerative disease of the spine. IMPRESSION: 1. No pulmonary embolus or aortic dissection. 2. Bilateral lower lobe/posterior dependent atelectasis otherwise no acute cardiopulmonary disease. Electronically signed by: Vicenta Antonio MD 11/19/23 21:59 PM ECG Additional Comments: ECG. Atrial fibrillation rate of 87. ST-T wave abnormality. Code Status & VTE Plan VTE Prophylaxis Plan VTE Prophylaxis will be ordered: Yes
[2023-11-20] MEDS ORDERED: NITROGLYCERIN SL 0.4 MG/TAB TAB SL PRN (04:02)
[2023-11-20] MEDS ORDERED: POLYETHYLENE (MIRALAX) 17 GM PACK PO PRN (04:02)
[2023-11-20] MEDS ORDERED: D5W AND 1/2NSS 1,000 ML IV SCH (04:02)
[2023-11-20] MEDS: LEVOTHYROXINE SODIUM 100 MCG TABLET PO SCH (06:07)
[2023-11-20 07:26] LABS: Basophils # (auto) 0.03 K/uL (0.00-0.20); Basophils % (auto) 0.5 %; Eosinophils # (auto) 0.01 K/uL (0.00-0.50); Eosinophils % (auto) 0.2 %; Hematocrit (blood only) 42.1 % (37.0-47.0); Hemoglobin 14.2 g/dl (12.0-16.0); Immature Granulocytes # (auto) 0.02 K/uL (0.01-0.20); Immature Granulocytes % (auto) 0.3 %; Lymphocytes # (auto) 1.01 K/uL (1.20-3.40); Lymphocytes % (auto) 17.2 %; Mean Corpuscular Hgb Conc 33.7 g/dL (32.0-36.0); Mean Platelet Volume 10.3 fL (9.4-12.4); Monocytes % (auto) 13.7 %; Neutrophils # (auto) 3.99 K/uL (1.40-6.50); Neutrophils % (auto) 68.1 %; Platelet Count 187 K/uL (130-400); RDW Coefficient of Variation 14.3 % (11.5-14.5); RDW Standard Deviation 46.7 fL (36.4-46.3); Red Blood Count 4.73 M/uL (4.20-5.40); White Blood Count 5.86 K/ul (4.8-10.8)
[2023-11-20 07:38] LABS: Calcium 8.3 mg/dl (8.6-10.3); Creatinine Clr Calc Pharmacy 66.5 ml/min; Est GFR (African American) 86.6 ml/min; Est GFR (Non-African American) 74.8 ml/min; Magnesium 1.9 mg/dl (1.7-2.4); Potassium 3.6 mmol/L (3.5-5.1)
[2023-11-20] MEDS ORDERED: bisacodyL 10 MG SUPP PR STA (07:45)
[2023-11-20] MEDS ORDERED: LACTULOSE SYRUP 20 GM/30 ML UDC PO ONE (07:45)
[2023-11-20 07:54] LABS: Thyroid Stimulating Hormone 1.057 uIu/ml (0.300-4.500)
[2023-11-20 08:33] LABS: INR 1.5 (0.9-1.1); Prothrombin Time 16.5 Seconds (9.0-12.0)
--- NOTE | 2023-11-20 08:39 | Electrocardiogram Report ---
Test Reason : Blood Pressure : / mmHG Vent. Rate : 087 BPM Atrial Rate : 000 BPM P-R Int : 000 ms QRS Dur : 108 ms QT Int : 380 ms P-R-T Axes : 000 028 267 degrees QTc Int : 457 ms Atrial fibrillation with occasional electronic ventricular pacing Nonspecific ST and T wave abnormality Anterolateral leads Abnormal ECG When compared with ECG of 02-OCT-2019 09:19, No significant change Confirmed by Mansoor Ospina ([id number]) on 11/20/2023 8:39:35 AM Referred By: REFERRED SELF Confirmed By:Mansoor Ospina
[2023-11-20] MEDS: DONEPEZIL HCL 10 MG TAB PO SCH (10:16)
[2023-11-20] MEDS: CHOLECALCIFEROL 1,000 UNITS 25 MCG TAB PO SCH (10:16)
[2023-11-20] MEDS: METOPROLOL SUCC 50MG EXT REL TAB PO SCH ×2 (10:16→20:29)
[2023-11-20] MEDS: CYANOCOBALAMIN (B-12) 500 MCG TABLET PO SCH (10:16)
[2023-11-20] MEDS: DULoxetine HCL 20 MG CAP PO SCH (10:16)
[2023-11-20] MEDS: ENOXAPARIN INJ 40 MG/0.4 ML SYR SQ SCH (10:17)
[2023-11-20] MEDS: CEROVITE ADV FORMULA TAB PO SCH (10:17)
[2023-11-20] MEDS: MAGNESIUM SULFATE / D5W 1 GM/100 ML BAG IV SCH ×3 (13:50→17:09)
--- NOTE | 2023-11-20 14:45 | Hospitalist Progress Note ---
Date of Service November 20, 2023 Assessment & Plan (1) Acute alteration in mental status: Plan: 83-year-old female with past medical history significant for hypothyroidism, hyperlipidemia, persistent atrial fibrillation, history of ventricular fibrillation, history of cardiac arrest s/p ICD implant, history of alcohol induced cardiomyopathy resolved, normal coronaries by cardiac cath in December 2014, hypertension, hyperlipidemia ,hypothyroidism, history of GI bleed., History of peptic ulcer, osteoarthritis, depression, anxiety, who lives alone and ambulates with walker and son lives about a mile from her was brought in because of confusion and abdominal pain. Patient is hard of hearing. Can tell her name. Knows that she is in the hospital. Denies headache. Denies chest pain. Denies shortness of breath. Denies nausea. Difficult to get any history from the patient. Son states she was diagnosed with COVID yesterday. She has 1 day symptoms of diarrhea, abdominal discomfort. Has mild cough. No fevers. When he went to check on her she was confused and could not figure out simple stuff and was brought in here. Currently medically stable. Says she wants more blankets. Acute alteration mental status Mostly from COVID CT head is okay We will follow urinalysis Gentle fluids Supportive care Monitor Abdominal discomfort CT pelvis showing constipation Stool softeners COVID Saturating okay on room air CTA chest unremarkable COVID precautions Persistent atrial fibrillation On metoprolol On Coumadin Monitor PT/INR History of cardiac arrest status of ICD implant History of alcohol induced cardiomyopathy resolved Echo in 09/2022 shows normal EF Hypertension On metoprolol Will monitor Hypothyroidism On Synthyroid Follow TSH Hyperlipidemia Statin DVT prophylaxis On Coumadin. INR subtherapeutic. Lovenox until INR therapeutic Disposition Med/tele Full code as per discussion with the son Admission and Anticipated Discharge Date Admission Date: November 20, 2023 Results & Data Results & Data Vital Signs (Past 12 Hours) Vital Signs Pulse Resp BP Pulse Ox Pulse Ox O2 Del Method 11/20/23 11:01 95 Room Air 11/20/23 08:19 69 11/20/23 06:00 76 20 110/81 92 11/20/23 04:29 92 Room Air 11/20/23 04:00 76 20 95/67 L 96 11/20/23 03:20 80 22 105/64 95
[2023-11-20] MEDS: POTASSIUM CHLORIDE / WTR 10 MEQ/100 ML PLCT IV SCH ×4 (15:03→18:02)
[2023-11-20] MEDS: cefTRIAXone SODIUM 2,000 MG in DEXTROSE 5 % MINI-B 50 ML IV SCH (15:29)
--- NOTE | 2023-11-20 16:35 | Communication Note ---
Date of Service: November 20, 2023 Patient seen and examined at bedside. She is awake, oriented to self. Reports tiredness and fatigue. Telemetry reviewed; showed ventricular tachycardia at around 1:04 pm. Patient denied any chest pain, palpitations or shortness of breath. Consulted cardiology. telemetry script sent to cardiology on consult for review 40 mEq potassium and 3 g magnesium given Started on empiric antibiotic with ceftriaxone. Will follow-up on blood culture. On physical examination; Constitutional: Awake, oriented to self. Not in distress Respiratory: Bilateral vesicular breath Cardiovascular: Irregular, no murmur, no edema Vessels: no JVD or carotid bruit Chest: normal inspection of chest Abdomen: Soft, nontender. Musculoskeletal: no cyanosis or clubbing, extremities motor strength 5/5 Skin: no rashes, warm and dry normal turgor Neurologic: PERRL, EOMI, accommodation nl, no face palsy, no dysarthria. Moves all extremities with Psychiatric: A+Ox3, euthymic affect Discussed with patient's son at bedside. Answered questions/queries. Full progress note to follow tomorrow a.m.
[2023-11-20 17:36] LABS: Appearance Urine Cloudy (Clear); Bacteria Urine Automated 1+ (Negative); Bilirubin Urine Negative (Negative); Blood Urine 2+ (Negative); Color Urine Dark Yellow; Glucose Urine UA Negative (Negative); Ketones Urine Trace (Negative); Leukocyte Esterase Urine 1+ (Negative); Nitrite Urine Negative (Negative); Protein Urine Trace (Negative); Specific Gravity Urine > 1.045 (1.000-1.030); Urobilinogen Urine Negative (Negative); pH Urine 6.5 (4.5-7.5)
[2023-11-20] MEDS: WARFARIN SOD 4 MG TAB PO SCH (18:20)
--- NOTE | 2023-11-20 19:42 | Cardiology Consultation ---
Date of Consultation November 20, 2023 Assessment & Plan (1) Acute alteration in mental status: (2) COVID-19 virus infection: (3) Atrial fibrillation, permanent: (4) ICD (implantable cardioverter-defibrillator) in place: Plan 83-year-old woman with resolved cardiomyopathy, ICD for prior SCD, permanent atrial fibrillation, who demonstrated an apparent abnormal rhythm on telemetry which appears to be artifactual. Careful review shows tips of sharp QRS within the sine wave artifact, consistent with her underlying atrial fibrillation and occurring at roughly the same rate as prior to and subsequent telemetry. Will interrogate ICD tomorrow to confirm, but low suspicion for ventricular dysrhythmia. She has no evidence of ongoing heart failure or myocardial ischemia. Suspect change in mental status is secondary to her COVID infection, no cardiac etiology is likely given unremarkable hemodynamics. Will follow along and check ICD tomorrow. Continue metoprolol for rate control of her atrial fibrillation. Continue warfarin with INR goal 23. No change in current management. She follows with Dr. Higuera and should be scheduled for a routine cardiology office visit sometime after hospital discharge. History of Present Illness Reason for Consultation: Ventricular tachycardia Requesting Physician: Ramon Zaragoza MD Attending Physician: Ramon Zaragoza MD History of Present Illness 83-year-old woman with history of ICD implant status post ventricular fibrillation/cardiac arrest, now permanent atrial fibrillation (warfarin/metoprolol), resolved alcohol induced cardiomyopathy, normal coronaries 2014, with multiple medical problems who was admitted earlier today (11/20/2023) with acute confusion/COVID positivity. A troponin was 5.1. ECG showed atrial fibrillation with occasional ventricular electronic pacing. Chest CT showed no heart failure. Telemetry showed atrial fibrillation with controlled ventricular response. There was concern about possible ventricular tachycardia around 15:04/15:05, but review of the recording shows only sine wave type artifact partially obscuring the underlying QRS complexes (AKA "toothbrush tachycardia"). No evidence of ventricular dysrhythmia. Patient was unable to offer any history to me but was awake and alert and seem to deny any symptoms. She denied chest pain, dyspnea, or palpitations. Allergies Allergy/AdvReac Type Severity Reaction Status Date / Time clarithromycin Allergy Unknown Unknown Verified 11/19/23 22:37 codeine Allergy Unknown Unknown Verified 11/19/23 22:37 Corticosteroids AdvReac Intermediate BODY Verified 11/19/23 22:37 (Glucocorticoids) SWELLS UP morphine AdvReac Intermediate CONFUSION Verified 11/19/23 22:37 Home Medications Medication Instructions Recorded Confirmed Type cholecalciferol (vitamin D3) 25 1,000 unit PO QAM 10/02/19 11/19/23 History mcg (1,000 unit) chewable tablet (Vitamin D3) gabapentin 100 mg capsule 100 mg PO HS 10/02/19 11/19/23 History metoprolol succinate 50 mg 50 mg PO BID 10/02/19 11/19/23 History tablet,extended release 24 hr multivitamin with minerals 1 tab PO QAM 10/02/19 11/19/23 History (Hair,Skin and Nails tablet) simvastatin 20 mg tablet 20 mg PO HS 10/02/19 11/19/23 History cyanocobalamin (vitamin B-12) 1,000 mcg PO QAM 12/24/19 11/19/23 History 1,000 mcg tablet (Vitamin B-12) melatonin 5 mg capsule 10 mg PO HS PRN Sleep 12/24/19 11/19/23 History donepezil 10 mg tablet 10 mg PO DAILY 03/14/23 11/19/23 History levothyroxine 100 mcg tablet 100 mcg PO DAILY 03/14/23 11/19/23 History memantine 10 mg tablet 10 mg PO QPM 03/14/23 11/19/23 History trazodone 100 mg tablet 100 mg PO QPM 03/14/23 11/19/23 History duloxetine 20 mg capsule,delayed 20 mg PO QAM 05/19/23 11/19/23 History release loratadine 10 mg tablet (Allergy 10 mg PO DAILY PRN allergies 05/19/23 11/19/23 History Relief (loratadine)) warfarin 2 mg tablet 4 mg PO DAILY #180 tabs 10/16/23 11/19/23 Rx Patient History Medical History (Updated 11/20/23 @ 19:38 by Mansoor Ospina MD) Cirrhosis of liver noted on CT 10/02/19 DM type 2 (diabetes mellitus, type 2) Dyslipidemia Hypertension ICD (implantable cardioverter-defibrillator) in place [employer] - NOT SURE OF WHEN IT WAS PLACED 09/2019 HAD CHECK FROM ER Ventricular tachycardia HAD CARDIAC ARREST AND THEN ICD PLACED Osteoarthritis Anxiety Depression Hypothyroidism Surgical History Hx of colonoscopy Hx of cardiac cath "2005-demonstrated normal coronary arteries" S/P right knee arthroscopy S/P KATHLEEN-BSO Hx of appendectomy History of total left knee replacement History of total right knee replacement Family History Father Diabetes Mother Diabetes Social History Smoking Status: Never smoker Second Hand Exposure: No; Do You Dip or Chew Tobacco: No; Hx Alcohol Use: No Hx Substance Use: No Preferred Language: Sinhala Communication Ability: Effective 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 Afebrile. BP mildly hypertensive. Pulse 97 bpm and irregular. Respirations 19 and unlabored. Skin: no ecchymoses or generalized lesions. HEENT: unremarkable. Neck: JVP at the clavicle at 90 degrees, no carotid bruits. Lungs: clear bilaterally. No wheezing or crackles. No accessory muscle use. Cardiac: irregular rhythm, normal S1-2, no obvious murmur. Abdomen: benign. Extremities: no edema, pulses intact. Neurologic: She had difficulty conversing but answers simple questions directly, grossly nonfocal. Results & Data Laboratory Results INR 1.5. Normal electrolytes, BUN 15, creatinine 0.75. Normal CBC. Diagnostic Findings ECG on admission showed atrial fibrillation with occasional electronic ventricular pacing. Nonspecific ST-T wave abnormality anterior lateral leads. Compared with 10/02/2019 ECG, no significant change. Chest CT this admission showed no pulmonary embolism or aortic dissection, there is bilateral lower lobe/posterior dependent atelectasis. Echocardiogram 2021 showed EF 55 to 60% with mild tricuspid regurgitation. C ompared with 2018, LV function had improved. PG Care Time/CCT Total # of Minutes Spent Total Time Spent with Patient: Total time spent is greater than 50% in coordination of care (as documented) at patient's floor/unit and/or counseling patient: Coding Level of Care Code 35645 INT INP/OBS CARE 75MIN Diagnoses Acute alteration in mental status R41.82 COVID-19 virus infection U07.1 Atrial fibrillation, permanent I48.21 ICD (implantable cardioverter-defibrillator) in place Z95.810
[2023-11-20] MEDS: MEMANTINE HCL 10 MG TAB PO SCH (20:29)
[2023-11-20] MEDS: traZODone HCL 100 MG TAB PO SCH (20:29)
[2023-11-20] MEDS: GABAPENTIN 100 MG CAP PO SCH (20:30)
[2023-11-20] MEDS: SIMVASTATIN 20 MG TAB PO SCH (20:30)
[2023-11-21 05:01] LABS: Basophils # (auto) 0.02 K/uL (0.00-0.20); Basophils % (auto) 0.3 %; Eosinophils # (auto) 0.02 K/uL (0.00-0.50); Eosinophils % (auto) 0.3 %; Hematocrit (blood only) 43.4 % (37.0-47.0); Hemoglobin 14.2 g/dl (12.0-16.0); Immature Granulocytes # (auto) 0.02 K/uL (0.01-0.20); Immature Granulocytes % (auto) 0.3 %; Lymphocytes # (auto) 1.26 K/uL (1.20-3.40); Lymphocytes % (auto) 18.9 %; Mean Corpuscular Hgb Conc 32.7 g/dL (32.0-36.0); Mean Corpuscular Volume 91.8 fL (80.0-100.0); Mean Platelet Volume 10.6 fL (9.4-12.4); Monocytes # (auto) 0.82 K/uL (0.11-0.59); Monocytes % (auto) 12.3 %; Neutrophils # (auto) 4.54 K/uL (1.40-6.50); Neutrophils % (auto) 67.9 %; Platelet Count 164 K/uL (130-400); RDW Standard Deviation 47.6 fL (36.4-46.3); Red Blood Count 4.73 M/uL (4.20-5.40); White Blood Count 6.68 K/ul (4.8-10.8)
[2023-11-21 05:16] LABS: BUN Creatinine Ratio 11.2 (10-20); Calcium 8.4 mg/dl (8.6-10.3); Creatinine Clr Calc Pharmacy 55.6 ml/min; Est GFR (African American) 70.4 ml/min; Est GFR (Non-African American) 60.8 ml/min; Magnesium 2.3 mg/dl (1.7-2.4); Potassium 3.8 mmol/L (3.5-5.1)
[2023-11-21 05:30] LABS: INR 1.7 (0.9-1.1)
[2023-11-21] MEDS: LEVOTHYROXINE SODIUM 100 MCG TABLET PO SCH (07:25)
[2023-11-21] MEDS: DONEPEZIL HCL 10 MG TAB PO SCH (08:13)
[2023-11-21] MEDS: CYANOCOBALAMIN (B-12) 500 MCG TABLET PO SCH (08:13)
[2023-11-21] MEDS: DULoxetine HCL 20 MG CAP PO SCH (08:13)
[2023-11-21] MEDS: METOPROLOL SUCC 50MG EXT REL TAB PO SCH ×2 (08:13→20:07)
[2023-11-21] MEDS: ENOXAPARIN INJ 40 MG/0.4 ML SYR SQ SCH (08:13)
[2023-11-21] MEDS: CHOLECALCIFEROL 1,000 UNITS 25 MCG TAB PO SCH (08:13)
[2023-11-21] MEDS: CEROVITE ADV FORMULA TAB PO SCH (08:14)
--- NOTE | 2023-11-21 12:12 | Cardiology Progress Note ---
Date of Service November 21, 2023 Assessment & Plan (1) Atrial fibrillation, permanent: Plan: -ventricular response well controlled on metoprolol succinate. -continue long-term anticoagulation with warfarin. -monitor review from yesterday suggested ventricular tachycardia, however, this was clearly artifact. (2) ICD (implantable cardioverter-defibrillator) in place: Plan: -s/p sudden cardiac , dual-chamber ICD, December 2004. -functioning properly on interrogation October 2023. -battery longevity approximately 3-4 months. (3) Nonischemic cardiomyopathy: Plan: -LVEF 55-60% on echo, September 2022. (4) COVID-19 virus infection: Plan: -management per hospitalist team. -presumed etiology of her confusion. Admission and Anticipated Discharge Date Admission Date: November 20, 2023 Subjective The patient is resting comfortably in bed without complaints of chest pain, dyspnea, or palpitations. Still appears to be disoriented as she did not know her location. Physical Exam Physical Exam: In general is well-developed well-nourished white female no acute distress. HEENT exam is unremarkable. Neck is supple with full carotid upstrokes. There are no carotid bruits. No jugular veinous distention. There is no thyromegaly. Cardiovascular exam reveals a regular rhythm with a normal S1 and S2. No S3, S4, or murmurs are noted. Lungs are clear without rales, rhonchi or wheezes. Abdomen is obese without bruits. Chest reveals a palpable device in the left subclavicular region. Extremities reveal intact radial artery pulses bilaterally. Trace pretibial edema is noted. 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 PG Care Time/CCT Total # of Minutes Spent Total Time Spent with Patient: Total time spent is greater than 50% in coordination of care (as documented) at patient's floor/unit and/or counseling patient: Coding Level of Care Code 27319 SUB INP/OBS CARE 3/50MIN Diagnoses Atrial fibrillation, permanent I48.21 ICD (implantable cardioverter-defibrillator) in place Z95.810 Nonischemic cardiomyopathy I42.8 COVID-19 virus infection U07.1
--- NOTE | 2023-11-21 16:19 | Hospitalist Progress Note ---
Date of Service November 21, 2023 Assessment & Plan (1) Acute alteration in mental status: Plan: 83-year-old female with past medical history significant for hypothyroidism, hyperlipidemia, persistent atrial fibrillation, history of ventricular fibrillation, history of cardiac arrest s/p ICD implant, history of alcohol induced cardiomyopathy resolved, normal coronaries by cardiac cath in December 2014, hypertension, hyperlipidemia ,hypothyroidism, history of GI bleed., History of peptic ulcer, osteoarthritis, depression, anxiety, who lives alone and ambulates with walker since with confusion and abdominal pain. Metabolic encephalopathy Acute UTI COVID-19 infection Patient presents from home with confusion and altered mental status. COVID-19 positive Urinalysis positive infection CT abdomen and pelvis -fecal debris is present in the distal colon. No other acute process. CTA chest chest no PE, bilateral lower lobe dependent atelectasis CT head without contrastno acute finding Urine culturemore than 3 types of organism; all high counts. Blood cultureno growth in 24 hours Will continue on antibiotic with ceftriaxone. Repeat urine culture. Patient's reports suprapubic pain and urinalysis is suggestive of infection. Plan to treat for 5 days start on MiraLAX daily as constipation can also contribute to confusion PT OT evaluation; patient lives alone Persistent atrial fibrillation EKG on admission personally reviewed; atrial fibrillation with ventricular rate of 87. QTc of 457 Review of telemetry from November 20, 2023 at 1; 0 4 PM showed wide-complex tachycardia. Reviewed with cardiology; artifact. No concern for ventricular tachycardia Continue on metoprolol Continue on Coumadin Monitor PT/INR History of cardiac arrest status of ICD implant History of alcohol induced cardiomyopathy resolved Echo in 09/2022 shows normal EF Hypertension On metoprolol Will monitor Hypothyroidism On Synthyroid Continue Hyperlipidemia Statin DVT prophylaxis On Coumadin. INR subtherapeutic. Lovenox until INR therapeutic Disposition Med/tele Full code Time spent evaluating patient, direct bedside care, chart review, placing orders, interpretation of diagnostic studies, discussion with consultants, patient, and family members, as well as other required patient management activities is 50 minutes Please note the above document was generated using voice recognition software. It may contain grammatical, syntax or spelling errors. Any formal questions or concerns about the content, text or information contained within the body of this dictation should be directly addressed to the provider for clarification Admission and Anticipated Discharge Date Admission Date: November 20, 2023 Subjective Patient seen and examined at bedside. Comfortable; not in distress. She is oriented to self, date of . Denies fever, chills, chest pain, shortness of breath, abdominal pain or urinary symptoms. No significant overnight events Telemetry shows atrial fibrillation with ventricular rate in 70s to 80s Review of Systems Review of Systems: All systems reviewed & are unremarkable except as noted in Subjective Physical Exam Physical Exam: Constitutional: Awake, oriented to self. Able to follow commands Respiratory: normal respiratory effort, lungs clear to auscultation, no wheeze, rales, rhonchi. Normal insp/exp effort, no accessory muscle use Cardiovascular: RRR, no murmur, no edema Vessels: no JVD or carotid bruit Chest: normal inspection of chest Abdomen: normal bowel sounds, soft, nontender, no hepatosplenomegaly Musculoskeletal: no cyanosis or clubbing, extremities motor strength 5/5 Skin: no rashes, warm and dry normal turgor Neurologic: PERRL, EOMI, accommodation nl, no face palsy, no dysarthria CN's II- XI intact bilaterally and moves all extremities Psychiatric: A+Ox1-2, euthymic affect Results & Data Results & Data Vital Signs (Past 12 Hours) Vital Signs Temp Pulse Pulse Resp BP Pulse Ox Pulse Ox 11/21/23 15:29 36.7 C 75 16 136/88 96 11/21/23 11:14 36.7 C 77 18 144/86 H 98 11/21/23 08:17 96 11/21/23 07:29 36.9 C 78 18 112/76 97 11/21/23 07:10 69 O2 Del Method O2 Del Method O2 Flow Rate O2 Flow Rate 11/21/23 15:29 Nasal Cannula 2 11/21/23 11:14 Nasal Cannula 3 11/21/23 08:17 Nasal Cannula 2 11/21/23 07:29 Nasal Cannula 4 11/21/23 07:10
[2023-11-21] MEDS: cefTRIAXone SODIUM 2,000 MG in DEXTROSE 5 % MINI-B 50 ML IV SCH (16:31)
[2023-11-21] MEDS: POLYETHYLENE (MIRALAX) 17 GM PACK PO SCH (16:33)
[2023-11-21] MEDS: WARFARIN SOD 4 MG TAB PO SCH (18:05)
[2023-11-21] MEDS: traZODone HCL 100 MG TAB PO SCH (20:07)
[2023-11-21] MEDS: SIMVASTATIN 20 MG TAB PO SCH (20:07)
[2023-11-21] MEDS: MEMANTINE HCL 10 MG TAB PO SCH (20:07)
[2023-11-21] MEDS: GABAPENTIN 100 MG CAP PO SCH (20:07)
[2023-11-22] MEDS: LEVOTHYROXINE SODIUM 100 MCG TABLET PO SCH (04:49)
[2023-11-22 06:23] LABS: Basophils # (auto) 0.02 K/uL (0.00-0.20); Basophils % (auto) 0.4 %; Eosinophils # (auto) 0.07 K/uL (0.00-0.50); Eosinophils % (auto) 1.3 %; Hematocrit (blood only) 44.9 % (37.0-47.0); Hemoglobin 14.8 g/dl (12.0-16.0); Immature Granulocytes # (auto) 0.01 K/uL (0.01-0.20); Immature Granulocytes % (auto) 0.2 %; Lymphocytes % (auto) 25.6 %; Mean Corpuscular Hemoglobin 29.7 pg (25.0-34.0); Mean Corpuscular Volume 90.2 fL (80.0-100.0); Mean Platelet Volume 10.1 fL (9.4-12.4); Monocytes # (auto) 0.63 K/uL (0.11-0.59); Monocytes % (auto) 11.5 %; Neutrophils # (auto) 3.34 K/uL (1.40-6.50); Platelet Count 183 K/uL (130-400); RDW Coefficient of Variation 13.2 % (11.5-14.5); RDW Standard Deviation 43.9 fL (36.4-46.3); Red Blood Count 4.98 M/uL (4.20-5.40); White Blood Count 5.47 K/ul (4.8-10.8)
[2023-11-22 06:51] LABS: INR 2.4 (0.9-1.1)
[2023-11-22 06:55] LABS: BUN Creatinine Ratio 15.5 (10-20); Calcium 8.1 mg/dl (8.6-10.3); Creatinine Clr Calc Pharmacy 85.3 ml/min; Est GFR (African American) 100.2 ml/min; Est GFR (Non-African American) 86.4 ml/min; Magnesium 1.9 mg/dl (1.7-2.4); Potassium 3.7 mmol/L (3.5-5.1)
[2023-11-22] MEDS: METOPROLOL SUCC 50MG EXT REL TAB PO SCH ×2 (08:17→21:25)
[2023-11-22] MEDS: CEROVITE ADV FORMULA TAB PO SCH (08:18)
[2023-11-22] MEDS: POLYETHYLENE (MIRALAX) 17 GM PACK PO SCH (08:18)
[2023-11-22] MEDS: DONEPEZIL HCL 10 MG TAB PO SCH (08:18)
[2023-11-22] MEDS: CYANOCOBALAMIN (B-12) 500 MCG TABLET PO SCH (08:18)
[2023-11-22] MEDS: DULoxetine HCL 20 MG CAP PO SCH (08:18)
[2023-11-22] MEDS: CHOLECALCIFEROL 1,000 UNITS 25 MCG TAB PO SCH (08:29)
[2023-11-22] MEDS: ENOXAPARIN INJ 40 MG/0.4 ML SYR SQ SCH (08:29)
[2023-11-22] MEDS: cefTRIAXone SODIUM 2,000 MG in DEXTROSE 5 % MINI-B 50 ML IV SCH (13:25)
--- NOTE | 2023-11-22 15:45 | Hospitalist Progress Note ---
Date of Service November 22, 2023 Assessment & Plan (1) Acute alteration in mental status: Plan: 83-year-old female with past medical history significant for hypothyroidism, hyperlipidemia, persistent atrial fibrillation, history of ventricular fibrillation, history of cardiac arrest s/p ICD implant, history of alcohol induced cardiomyopathy resolved, normal coronaries by cardiac cath in December 2014, hypertension, hyperlipidemia ,hypothyroidism, history of GI bleed., History of peptic ulcer, osteoarthritis, depression, anxiety, who lives alone and ambulates with walker since with confusion and abdominal pain. She is being managed for the following: Metabolic encephalopathy Acute UTI COVID-19 infection Patient presents from home with confusion and altered mental status. COVID-19 positive Urinalysis positive infection CT abdomen and pelvis -fecal debris is present in the distal colon. No other acute process. CTA chest chest no PE, bilateral lower lobe dependent atelectasis CT head without contrastno acute finding Urine culturemore than 3 types of organism; all high counts. Blood cultureno growth in 24 hours Will continue on antibiotic with ceftriaxone. Repeat urine culture. Patient's reports suprapubic pain and urinalysis is suggestive of infection. Plan to treat for 5 days started on MiraLAX daily as constipation can also contribute to confusion PT OT evaluation; patient lives alone Persistent atrial fibrillation EKG on admission personally reviewed; atrial fibrillation with ventricular rate of 87. QTc of 457 Review of telemetry from November 20, 2023 at 1; 0 4 PM showed wide-complex tachycardia. Reviewed with cardiology; artifact. No concern for ventricular tachycardia Continue on metoprolol Continue on Coumadin Monitor PT/INR History of cardiac arrest status of ICD implant History of alcohol induced cardiomyopathy resolved Echo in 09/2022 shows normal EF Hypertension: On metoprolol, continue. Will monitor Hypothyroidism: On Synthyroid. Continue Hyperlipidemia: c/w home Statin DVT prophylaxis On Coumadin. INR subtherapeutic. Lovenox until INR therapeutic Disposition: Med/tele Full code Admission and Anticipated Discharge Date Admission Date: November 20, 2023 Subjective Patient seen and examined at bedside. Comfortable; not in distress. She is oriented to self, date of . Denies fever, chills, chest pain, shortness of breath, abdominal pain or urinary symptoms. No significant overnight events Physical Exam Physical Exam: Constitutional: Awake, oriented to self. Able to follow commands Respiratory: normal respiratory effort, lungs clear to auscultation, no wheeze, rales, rhonchi. Normal insp/exp effort, no accessory muscle use Cardiovascular: RRR, no murmur, trace ble edema Vessels: no JVD or carotid bruit Chest: normal inspection of chest Abdomen: normal bowel sounds, soft, nontender, no hepatosplenomegaly Musculoskeletal: no cyanosis or clubbing, extremities motor strength 5/5 Skin: no rashes, warm and dry normal turgor Neurologic: PERRL, EOMI, accommodation nl, no face palsy, no dysarthria CN's II- XI intact bilaterally and moves all extremities Psychiatric: A+Ox1-2, euthymic affect Results & Data Results & Data Vital Signs (Past 12 Hours) Vital Signs Temp Pulse Pulse Resp BP Pulse Ox O2 Del Method 11/22/23 14:41 76 11/22/23 11:17 36.6 C 75 16 155/91 H 97 Nasal Cannula 11/22/23 08:12 Nasal Cannula 11/22/23 08:12 94 Nasal Cannula 11/22/23 08:08 36.5 C 73 16 129/85 Nasal Cannula O2 Flow Rate 11/22/23 14:41 11/22/23 11:17 2 11/22/23 08:12 2 11/22/23 08:12 2 11/22/23 08:08 2
[2023-11-22] MEDS: WARFARIN SOD 4 MG TAB PO SCH (16:35)
[2023-11-22] MEDS: SIMVASTATIN 20 MG TAB PO SCH (21:25)
[2023-11-22] MEDS: traZODone HCL 100 MG TAB PO SCH (21:25)
[2023-11-22] MEDS: GABAPENTIN 100 MG CAP PO SCH (21:25)
[2023-11-22] MEDS: MEMANTINE HCL 10 MG TAB PO SCH (21:25)
[2023-11-23] MEDS: LEVOTHYROXINE SODIUM 100 MCG TABLET PO SCH (05:02)
[2023-11-23 08:13] LABS: BUN Creatinine Ratio 23.2 (10-20); Calcium 8.4 mg/dl (8.6-10.3); Creatinine Clr Calc Pharmacy 88.3 ml/min; Est GFR (African American) 101.3 ml/min; Est GFR (Non-African American) 87.4 ml/min; Magnesium 1.7 mg/dl (1.7-2.4); Phosphorus 3.3 mg/dl (2.5-4.9); Potassium 3.8 mmol/L (3.5-5.1)
[2023-11-23 08:19] LABS: Hematocrit (blood only) 45.7 % (37.0-47.0); Mean Corpuscular Hemoglobin 29.9 pg (25.0-34.0); Mean Corpuscular Hgb Conc 32.8 g/dL (32.0-36.0); Mean Corpuscular Volume 91.2 fL (80.0-100.0); Mean Platelet Volume 10.2 fL (9.4-12.4); Platelet Count 200 K/uL (130-400); RDW Coefficient of Variation 13.2 % (11.5-14.5); RDW Standard Deviation 44.5 fL (36.4-46.3); Red Blood Count 5.01 M/uL (4.20-5.40); White Blood Count 4.97 K/ul (4.8-10.8)
[2023-11-23 08:22] LABS: INR 2.5 (0.9-1.1); Prothrombin Time 26.3 Seconds (9.0-12.0)
[2023-11-23] MEDS: CHOLECALCIFEROL 1,000 UNITS 25 MCG TAB PO SCH (09:31)
[2023-11-23] MEDS: METOPROLOL SUCC 50MG EXT REL TAB PO SCH ×2 (09:31→20:05)
[2023-11-23] MEDS: POLYETHYLENE (MIRALAX) 17 GM PACK PO SCH (09:31)
[2023-11-23] MEDS: DONEPEZIL HCL 10 MG TAB PO SCH (09:31)
[2023-11-23] MEDS: ENOXAPARIN INJ 40 MG/0.4 ML SYR SQ SCH (09:31)
[2023-11-23] MEDS: CYANOCOBALAMIN (B-12) 500 MCG TABLET PO SCH (09:31)
[2023-11-23] MEDS: DULoxetine HCL 20 MG CAP PO SCH (09:31)
[2023-11-23] MEDS: CEROVITE ADV FORMULA TAB PO SCH (09:31)
[2023-11-23] MEDS ORDERED: POLYETHYLENE (MIRALAX) 17 GM PACK PO PRN (11:20)
[2023-11-23] MEDS: cefTRIAXone SODIUM 2,000 MG in DEXTROSE 5 % MINI-B 50 ML IV SCH (13:19)
--- NOTE | 2023-11-23 15:02 | Hospitalist Progress Note ---
Date of Service November 23, 2023 Assessment & Plan (1) Acute alteration in mental status: Plan: 83-year-old female with past medical history significant for hypothyroidism, hyperlipidemia, persistent atrial fibrillation, history of ventricular fibrillation, history of cardiac arrest s/p ICD implant, history of alcohol induced cardiomyopathy resolved, normal coronaries by cardiac cath in December 2014, hypertension, hyperlipidemia ,hypothyroidism, history of GI bleed., History of peptic ulcer, osteoarthritis, depression, anxiety, who lives alone and ambulates with walker since with confusion and abdominal pain. She is being managed for the following: Metabolic encephalopathy Acute UTI COVID-19 infection Patient presents from home with confusion and altered mental status. COVID-19 positive Urinalysis positive infection CT abdomen and pelvis -fecal debris is present in the distal colon. No other acute process. CTA chest chest no PE, bilateral lower lobe dependent atelectasis CT head without contrastno acute finding Urine culturemore than 3 types of organism; all high counts. Blood cultureno growth in 24 hours Will continue on antibiotic with ceftriaxone. Patient's reports suprapubic pain and urinalysis is suggestive of infection. Plan to treat for 5 days PT OT evaluation; patient lives alone, recs is rehab. Persistent atrial fibrillation EKG on admission personally reviewed; atrial fibrillation with ventricular rate of 87. QTc of 457 Review of telemetry from November 20, 2023 at 1; 0 4 PM showed wide-complex tachycardia. Reviewed with cardiology; artifact. No concern for ventricular tachycardia Continue on metoprolol Continue on Coumadin Monitor PT/INR History of cardiac arrest status of ICD implant History of alcohol induced cardiomyopathy resolved Echo in 09/2022 shows normal EF Hypertension: On metoprolol, continue. Will monitor Hypothyroidism: On Synthyroid. Continue Hyperlipidemia: c/w home Statin DVT prophylaxis: On Coumadin. Disposition: Med/tele Full code Admission and Anticipated Discharge Date Admission Date: November 20, 2023 Subjective Patient seen and examined at bedside. Comfortable; not in distress. She is oriented x2 today, will loose bm today per RN, overnight was confused per rn. Denies fever, chills, chest pain, shortness of breath, abdominal pain or urinary symptoms. Appetite ok per rn. Physical Exam Physical Exam: Constitutional: Awake, oriented x2. Able to follow commands Respiratory: normal respiratory effort, lungs clear to auscultation, no wheeze, rales, rhonchi. Normal insp/exp effort, no accessory muscle use Cardiovascular: RRR, no murmur, trace ble edema Vessels: no JVD or carotid bruit Chest: normal inspection of chest Abdomen: normal bowel sounds, soft, nontender, no hepatosplenomegaly Musculoskeletal: no cyanosis or clubbing, extremities motor strength 5/5 Skin: no rashes, warm and dry normal turgor Neurologic: PERRL, EOMI, accommodation nl, no face palsy, no dysarthria CN's II- XI intact bilaterally and moves all extremities Psychiatric: A+Ox1-2, euthymic affect Results & Data Results & Data Vital Signs (Past 12 Hours) Vital Signs Temp Pulse Pulse Resp BP Pulse Ox O2 Del Method 11/23/23 14:49 78 11/23/23 12:54 37.2 C 76 18 127/83 93 Nasal Cannula 11/23/23 11:31 Room Air 11/23/23 09:06 37.0 C 78 16 131/88 100 Nasal Cannula 11/23/23 07:40 72 11/23/23 05:00 36.5 C 84 16 152/104 H 96 Nasal Cannula O2 Flow Rate 11/23/23 14:49 11/23/23 12:54 11/23/23 11:31 11/23/23 09:06 2 11/23/23 07:40 11/23/23 05:00
[2023-11-23] MEDS: WARFARIN SOD 4 MG TAB PO SCH (15:28)
[2023-11-23] MEDS: traZODone HCL 100 MG TAB PO SCH (20:06)
[2023-11-23] MEDS: GABAPENTIN 100 MG CAP PO SCH (20:07)
[2023-11-23] MEDS: MEMANTINE HCL 10 MG TAB PO SCH (20:07)
[2023-11-23] MEDS: SIMVASTATIN 20 MG TAB PO SCH (20:07)
[2023-11-24] MEDS: LEVOTHYROXINE SODIUM 100 MCG TABLET PO SCH (05:44)
[2023-11-24 07:51] LABS: Calcium 8.3 mg/dl (8.6-10.3); Magnesium 1.6 mg/dl (1.7-2.4); Potassium 3.3 mmol/L (3.5-5.1)
[2023-11-24 07:57] LABS: BUN Creatinine Ratio 16.4 (10-20); Creatinine Clr Calc Pharmacy 81.1 ml/min; Est GFR (African American) 98.5 ml/min; Phosphorus 2.8 mg/dl (2.5-4.9)
[2023-11-24] MEDS ORDERED: POTASSIUM CHLORIDE CRTAB 20 MEQ TABCR PO STA (08:21)
[2023-11-24] MEDS: MAGNESIUM SULFATE / D5W 1 GM/100 ML BAG IV SCH ×2 (09:14→11:27)
[2023-11-24] MEDS: CEROVITE ADV FORMULA TAB PO SCH (09:16)
[2023-11-24] MEDS: DONEPEZIL HCL 10 MG TAB PO SCH (09:16)
[2023-11-24] MEDS: CYANOCOBALAMIN (B-12) 500 MCG TABLET PO SCH (09:17)
[2023-11-24] MEDS: CHOLECALCIFEROL 1,000 UNITS 25 MCG TAB PO SCH (09:17)
[2023-11-24] MEDS: DULoxetine HCL 20 MG CAP PO SCH (09:17)
[2023-11-24] MEDS: METOPROLOL SUCC 50MG EXT REL TAB PO SCH ×2 (09:17→20:31)
[2023-11-24] MEDS: cefTRIAXone SODIUM 2,000 MG in DEXTROSE 5 % MINI-B 50 ML IV SCH (13:22)
--- NOTE | 2023-11-24 16:09 | Hospitalist Progress Note ---
Date of Service November 24, 2023 Assessment & Plan (1) Acute alteration in mental status: Plan: 83-year-old female with past medical history significant for hypothyroidism, hyperlipidemia, persistent atrial fibrillation, history of ventricular fibrillation, history of cardiac arrest s/p ICD implant, history of alcohol induced cardiomyopathy resolved, normal coronaries by cardiac cath in December 2014, hypertension, hyperlipidemia ,hypothyroidism, history of GI bleed., History of peptic ulcer, osteoarthritis, depression, anxiety, who lives alone and ambulates with walker since with confusion and abdominal pain. She is being managed for the following: Metabolic encephalopathy Acute UTI COVID-19 infection Patient presents from home with confusion and altered mental status. COVID-19 positive Urinalysis positive infection CT abdomen and pelvis -fecal debris is present in the distal colon. No other acute process. CTA chest chest no PE, bilateral lower lobe dependent atelectasis CT head without contrastno acute finding Urine culturemore than 3 types of organism; all high counts. Blood cultureno growth in 24 hours Will continue on antibiotic with ceftriaxone. Patient's reports suprapubic pain and urinalysis is suggestive of infection. s/p 5 days of antibiotic PT OT evaluation; patient lives alone, recs is rehab. Persistent atrial fibrillation EKG on admission personally reviewed; atrial fibrillation with ventricular rate of 87. QTc of 457 Review of telemetry from November 20, 2023 at 1; 0 4 PM showed wide-complex tachycardia. Reviewed with cardiology; artifact. No concern for ventricular tachycardia Continue on metoprolol Continue on Coumadin Monitor PT/INR History of cardiac arrest status of ICD implant History of alcohol induced cardiomyopathy resolved Echo in 09/2022 shows normal EF Hypertension: On metoprolol, continue. Will monitor Hypothyroidism: On Synthyroid. Continue Hyperlipidemia: c/w home Statin DVT prophylaxis: On Coumadin. Disposition: Med/tele Full code Admission and Anticipated Discharge Date Admission Date: November 20, 2023 Subjective Patient seen and examined at bedside. Comfortable; not in distress. She is oriented x1 today, with loose bm 3 overnight and 2 in AM per rn, will send c diff. Denies fever, chills, chest pain, shortness of breath, abdominal pain or urinary symptoms. Appetite ok per rn. Physical Exam Physical Exam: Constitutional: Awake, oriented x1. Able to follow commands Respiratory: normal respiratory effort, lungs clear to auscultation, no wheeze, rales, rhonchi. Normal insp/exp effort, no accessory muscle use Cardiovascular: RRR, no murmur, trace ble edema Vessels: no JVD or carotid bruit Chest: normal inspection of chest Abdomen: normal bowel sounds, soft, nontender, no hepatosplenomegaly Musculoskeletal: no cyanosis or clubbing, extremities motor strength 5/5 Skin: no rashes, warm and dry normal turgor Neurologic: PERRL, EOMI, accommodation nl, no face palsy, no dysarthria CN's II- XI intact bilaterally and moves all extremities Psychiatric: A+Ox1-2, euthymic affect Results & Data Results & Data Vital Signs (Past 12 Hours) Vital Signs Temp Pulse Pulse Resp BP Pulse Ox O2 Del Method 11/24/23 16:02 71 11/24/23 12:30 36.8 C 68 18 142/80 H 97 Room Air 11/24/23 10:22 Room Air 11/24/23 09:02 36.8 C 68 18 154/82 H 93 Room Air 11/24/23 07:39 65 11/24/23 04:22 36.6 C 69 20 127/82 92 Room Air
[2023-11-24] MEDS: WARFARIN SOD 4 MG TAB PO SCH (17:59)
[2023-11-24] MEDS: SIMVASTATIN 20 MG TAB PO SCH (20:31)
[2023-11-24] MEDS: traZODone HCL 100 MG TAB PO SCH (20:31)
[2023-11-24] MEDS: MEMANTINE HCL 10 MG TAB PO SCH (20:32)
[2023-11-24] MEDS: GABAPENTIN 100 MG CAP PO SCH (20:32)
[2023-11-25] MEDS: LEVOTHYROXINE SODIUM 100 MCG TABLET PO SCH (06:02)
[2023-11-25 07:21] LABS: BUN Creatinine Ratio 13.2 (10-20); Calcium 8.6 mg/dl (8.6-10.3); Creatinine Clr Calc Pharmacy 65.1 ml/min; Est GFR (African American) 85.3 ml/min; Est GFR (Non-African American) 73.6 ml/min; Magnesium 1.9 mg/dl (1.7-2.4)
[2023-11-25] MEDS: DULoxetine HCL 20 MG CAP PO SCH (08:01)
[2023-11-25] MEDS: CEROVITE ADV FORMULA TAB PO SCH (08:01)
[2023-11-25] MEDS: CYANOCOBALAMIN (B-12) 500 MCG TABLET PO SCH (08:01)
[2023-11-25] MEDS: METOPROLOL SUCC 50MG EXT REL TAB PO SCH ×2 (08:01→21:25)
[2023-11-25] MEDS: CHOLECALCIFEROL 1,000 UNITS 25 MCG TAB PO SCH (08:01)
[2023-11-25] MEDS: DONEPEZIL HCL 10 MG TAB PO SCH (08:01)
--- NOTE | 2023-11-25 13:44 | Hospitalist Progress Note ---
Date of Service November 25, 2023 Assessment & Plan (1) Acute alteration in mental status: Plan: 83-year-old female with past medical history significant for hypothyroidism, hyperlipidemia, persistent atrial fibrillation, history of ventricular fibrillation, history of cardiac arrest s/p ICD implant, history of alcohol induced cardiomyopathy resolved, normal coronaries by cardiac cath in December 2014, hypertension, hyperlipidemia ,hypothyroidism, history of GI bleed., History of peptic ulcer, osteoarthritis, depression, anxiety, who lives alone and ambulates with walker since with confusion and abdominal pain. She is being managed for the following: Metabolic encephalopathy Acute UTI COVID-19 infection Patient presents from home with confusion and altered mental status. COVID-19 positive Urinalysis positive infection CT abdomen and pelvis -fecal debris is present in the distal colon. No other acute process. CTA chest chest no PE, bilateral lower lobe dependent atelectasis CT head without contrastno acute finding Urine culturemore than 3 types of organism; all high counts. Blood cultureno growth in 24 hours Will continue on antibiotic with ceftriaxone. Patient's reports suprapubic pain and urinalysis is suggestive of infection. s/p 5 days of antibiotic PT OT evaluation; patient lives alone, recs is rehab. Persistent atrial fibrillation EKG on admission personally reviewed; atrial fibrillation with ventricular rate of 87. QTc of 457 Review of telemetry from November 20, 2023 at 1; 0 4 PM showed wide-complex tachycardia. Reviewed with cardiology; artifact. No concern for ventricular tachycardia Continue on metoprolol Continue on Coumadin Monitor PT/INR History of cardiac arrest status of ICD implant History of alcohol induced cardiomyopathy resolved Echo in 09/2022 shows normal EF Hypertension: On metoprolol, continue. Will monitor Hypothyroidism: On Synthyroid. Continue Hyperlipidemia: c/w home Statin DVT prophylaxis: On Coumadin. Disposition: Med/tele, pt/ot. cm to assist. likely rehab. Full code Admission and Anticipated Discharge Date Admission Date: November 20, 2023 Subjective Patient seen and examined at bedside. Comfortable; not in distress. Loose bowel movements improving. Denies fever, chills, chest pain, shortness of breath, abdominal pain or urinary symptoms. Appetite ok per rn. Physical Exam Physical Exam: Constitutional: Awake, alert. Able to follow commands Respiratory: normal respiratory effort, lungs clear to auscultation, no wheeze, rales, rhonchi. Normal insp/exp effort, no accessory muscle use Cardiovascular: RRR, no murmur, trace ble edema Vessels: no JVD or carotid bruit Chest: normal inspection of chest Abdomen: normal bowel sounds, soft, nontender, no hepatosplenomegaly Musculoskeletal: no cyanosis or clubbing, extremities motor strength 5/5 Skin: no rashes, warm and dry normal turgor Neurologic: PERRL, EOMI, accommodation nl, no face palsy, no dysarthria CN's II- XI intact bilaterally and moves all extremities Psychiatric: A+Ox1-2, euthymic affect Results & Data Results & Data Vital Signs (Past 12 Hours) Vital Signs Temp Pulse Pulse Resp BP Pulse Ox O2 Del Method 11/25/23 11:54 36.8 C 72 18 122/82 95 Room Air 11/25/23 11:16 Room Air 11/25/23 08:32 83 11/25/23 08:00 36.7 C 72 18 128/78 95 Room Air
[2023-11-25] MEDS: WARFARIN SOD 4 MG TAB PO SCH (16:27)
[2023-11-25] MEDS: MEMANTINE HCL 10 MG TAB PO SCH (21:24)
[2023-11-25] MEDS: GABAPENTIN 100 MG CAP PO SCH (21:24)
[2023-11-25] MEDS: traZODone HCL 100 MG TAB PO SCH (21:25)
[2023-11-25] MEDS: SIMVASTATIN 20 MG TAB PO SCH (21:25)
[2023-11-26] MEDS: LEVOTHYROXINE SODIUM 100 MCG TABLET PO SCH (05:32)
[2023-11-26 07:17] LABS: BUN Creatinine Ratio 19.4 (10-20); Calcium 8.3 mg/dl (8.6-10.3); Creatinine Clr Calc Pharmacy 73.8 ml/min; Est GFR (African American) 95.5 ml/min; Est GFR (Non-African American) 82.4 ml/min; Magnesium 1.7 mg/dl (1.7-2.4)
[2023-11-26] MEDS: CEROVITE ADV FORMULA TAB PO SCH (08:03)
[2023-11-26] MEDS: DONEPEZIL HCL 10 MG TAB PO SCH (08:03)
[2023-11-26] MEDS: DULoxetine HCL 20 MG CAP PO SCH (08:03)
[2023-11-26] MEDS: LORATADINE 10 MG TAB PO PRN (08:03)
[2023-11-26] MEDS: CYANOCOBALAMIN (B-12) 500 MCG TABLET PO SCH (08:03)
[2023-11-26] MEDS: CHOLECALCIFEROL 1,000 UNITS 25 MCG TAB PO SCH (08:03)
[2023-11-26] MEDS: METOPROLOL SUCC 50MG EXT REL TAB PO SCH ×2 (08:04→21:30)
[2023-11-26] MEDS: PSYLLIUM or GUAR GUM FIBER POWDER PACKET PO SCH (09:57)
[2023-11-26] MEDS: WARFARIN SOD 4 MG TAB PO SCH (15:05)
--- NOTE | 2023-11-26 15:12 | Hospitalist Progress Note ---
Date of Service November 26, 2023 Assessment & Plan (1) Acute alteration in mental status: Plan: 83-year-old female with past medical history significant for hypothyroidism, hyperlipidemia, persistent atrial fibrillation, history of ventricular fibrillation, history of cardiac arrest s/p ICD implant, history of alcohol induced cardiomyopathy resolved, normal coronaries by cardiac cath in December 2014, hypertension, hyperlipidemia ,hypothyroidism, history of GI bleed., History of peptic ulcer, osteoarthritis, depression, anxiety, who lives alone and ambulates with walker since with confusion and abdominal pain. She is being managed for the following: Metabolic encephalopathy Acute UTI COVID-19 infection Patient presents from home with confusion and altered mental status. COVID-19 positive Urinalysis positive infection CT abdomen and pelvis -fecal debris is present in the distal colon. No other acute process. CTA chest chest no PE, bilateral lower lobe dependent atelectasis CT head without contrastno acute finding Urine culturemore than 3 types of organism; all high counts. Blood cultureno growth in 24 hours Continued on antibiotic with ceftriaxone. Patient's reported suprapubic pain and urinalysis is suggestive of infection. s/p 5 days of antibiotic PT OT evaluation; patient lives alone, recs is rehab. Persistent atrial fibrillation EKG on admission personally reviewed; atrial fibrillation with ventricular rate of 87. QTc of 457 Review of telemetry from November 20, 2023 at 1; 0 4 PM showed wide-complex tachycardia. Reviewed with cardiology; artifact. No concern for ventricular tachycardia Continue on metoprolol Continue on Coumadin Monitor PT/INR History of cardiac arrest status of ICD implant History of alcohol induced cardiomyopathy resolved Echo in 09/2022 shows normal EF Hypertension: On metoprolol, continue. Will monitor Hypothyroidism: On Synthyroid. Continue Hyperlipidemia: c/w home Statin DVT prophylaxis: On Coumadin. Disposition: Med/tele, pt/ot. cm to assist. likely rehab. Full code Admission and Anticipated Discharge Date Admission Date: November 20, 2023 Subjective Patient seen and examined at bedside. Comfortable; not in distress. Loose bowel movements ongoing, will add psyllium to bulk up the stool. Denies fever, chills, chest pain, shortness of breath, abdominal pain or urinary symptoms. Appetite ok per rn. Per RN, patient is 2 person assist. Physical Exam Physical Exam: Constitutional: Awake, alert. Able to follow commands Respiratory: normal respiratory effort, lungs clear to auscultation, no wheeze, rales, rhonchi. Normal insp/exp effort, no accessory muscle use Cardiovascular: RRR, no murmur, trace ble edema Vessels: no JVD or carotid bruit Chest: normal inspection of chest Abdomen: normal bowel sounds, soft, nontender, no hepatosplenomegaly Musculoskeletal: no cyanosis or clubbing, extremities motor strength 5/5 Skin: no rashes, warm and dry normal turgor Neurologic: PERRL, EOMI, accommodation nl, no face palsy, no dysarthria CN's II- XI intact bilaterally and moves all extremities Psychiatric: A+Ox1-2, euthymic affect Results & Data Results & Data Vital Signs (Past 12 Hours) Vital Signs Temp Pulse Pulse Resp BP Pulse Ox O2 Del Method 11/26/23 12:02 36.5 C 67 18 138/62 92 Room Air 11/26/23 10:37 Room Air 11/26/23 08:02 36.6 C 71 18 122/77 93 Room Air 11/26/23 07:15 60
[2023-11-26] MEDS: traZODone HCL 100 MG TAB PO SCH (21:29)
[2023-11-26] MEDS: GABAPENTIN 100 MG CAP PO SCH (21:30)
[2023-11-26] MEDS: MEMANTINE HCL 10 MG TAB PO SCH (21:30)
[2023-11-26] MEDS: SIMVASTATIN 20 MG TAB PO SCH (21:30)
[2023-11-27] MEDS: LEVOTHYROXINE SODIUM 100 MCG TABLET PO SCH (05:41)
[2023-11-27 08:01] LABS: BUN Creatinine Ratio 14.3 (10-20); Calcium 8.4 mg/dl (8.6-10.3); Creatinine Clr Calc Pharmacy 78.5 ml/min; Est GFR (African American) 97.5 ml/min; Est GFR (Non-African American) 84.1 ml/min; Magnesium 1.8 mg/dl (1.7-2.4); Phosphorus 3.2 mg/dl (2.5-4.9); Potassium 3.9 mmol/L (3.5-5.1)
[2023-11-27 08:07] LABS: INR 3.1 (0.9-1.1); Prothrombin Time 31.4 Seconds (9.0-12.0)
[2023-11-27] MEDS: DONEPEZIL HCL 10 MG TAB PO SCH (08:18)
[2023-11-27] MEDS: METOPROLOL SUCC 50MG EXT REL TAB PO SCH ×2 (08:18→22:08)
[2023-11-27] MEDS: PSYLLIUM or GUAR GUM FIBER POWDER PACKET PO SCH (08:18)
[2023-11-27] MEDS: CYANOCOBALAMIN (B-12) 500 MCG TABLET PO SCH (08:22)
[2023-11-27] MEDS: CEROVITE ADV FORMULA TAB PO SCH (08:22)
[2023-11-27] MEDS: ADVANCED PROBIOTIC 1250 MG CAPSULE PO SCH (08:22)
[2023-11-27] MEDS: DULoxetine HCL 20 MG CAP PO SCH (08:22)
[2023-11-27] MEDS: CHOLECALCIFEROL 1,000 UNITS 25 MCG TAB PO SCH (08:22)
--- NOTE | 2023-11-27 14:59 | Hospitalist Progress Note ---
Date of Service November 27, 2023 Assessment & Plan (1) Acute alteration in mental status: Plan: 83-year-old female with past medical history significant for hypothyroidism, hyperlipidemia, persistent atrial fibrillation, history of ventricular fibrillation, history of cardiac arrest s/p ICD implant, history of alcohol induced cardiomyopathy resolved, normal coronaries by cardiac cath in December 2014, hypertension, hyperlipidemia ,hypothyroidism, history of GI bleed., History of peptic ulcer, osteoarthritis, depression, anxiety, who lives alone and ambulates with walker since with confusion and abdominal pain. She is being managed for the following: Metabolic encephalopathy Acute UTI COVID-19 infection Patient presents from home with confusion and altered mental status. COVID-19 positive Urinalysis positive infection CT abdomen and pelvis -fecal debris is present in the distal colon. No other acute process. CTA chest chest no PE, bilateral lower lobe dependent atelectasis CT head without contrastno acute finding Urine culturemore than 3 types of organism; all high counts. Blood cultureno growth in 24 hours Continued on antibiotic with ceftriaxone. Patient's reported suprapubic pain and urinalysis is suggestive of infection. s/p 5 days of antibiotic PT OT evaluation; patient lives alone, recs is rehab. Persistent atrial fibrillation EKG on admission personally reviewed; atrial fibrillation with ventricular rate of 87. QTc of 457 Review of telemetry from November 20, 2023 at 1; 0 4 PM showed wide-complex tachycardia. Reviewed with cardiology; artifact. No concern for ventricular tachycardia Continue on metoprolol Coumadin on hold due to supratherapeutic INR, PT/INR in AM. Monitor PT/INR History of cardiac arrest status of ICD implant History of alcohol induced cardiomyopathy resolved Echo in 09/2022 shows normal EF Hypertension: On metoprolol, continue. Will monitor Hypothyroidism: On Synthyroid. Continue Hyperlipidemia: c/w home Statin DVT prophylaxis: On Coumadin. Disposition: Med/tele, pt/ot. cm to assist. [facility] Admission and Anticipated Discharge Date Admission Date: November 20, 2023 Subjective Patient seen and examined at bedside. Comfortable; not in distress. Bowel movements improving per RN. Denies fever, chills, chest pain, shortness of breath, abdominal pain or urinary symptoms. Appetite ok per rn. Per RN, patient is 1 person assist. Physical Exam Physical Exam: Constitutional: Awake, alert. Able to follow commands Respiratory: normal respiratory effort, lungs clear to auscultation, no wheeze, rales, rhonchi. Normal insp/exp effort, no accessory muscle use Cardiovascular: RRR, no murmur, trace ble edema Vessels: no JVD or carotid bruit Chest: normal inspection of chest Abdomen: normal bowel sounds, soft, nontender, no hepatosplenomegaly Musculoskeletal: no cyanosis or clubbing, extremities motor strength 5/5 Skin: no rashes, warm and dry normal turgor Neurologic: PERRL, EOMI, accommodation nl, no face palsy, no dysarthria CN's II- XI intact bilaterally and moves all extremities Psychiatric: A+Ox1-2, euthymic affect Results & Data Results & Data Vital Signs (Past 12 Hours) Vital Signs Temp Pulse Pulse Resp BP Pulse Ox O2 Del Method 11/27/23 11:38 36.8 C 68 16 129/59 L 95 Room Air 11/27/23 10:11 Room Air 11/27/23 07:55 36.9 C 69 18 109/71 96 Room Air 11/27/23 07:29 65
[2023-11-27] MEDS: MELATONIN 3 MG TAB PO PRN (22:07)
[2023-11-27] MEDS: ACETAMINOPHEN 325 MG TAB PO PRN (22:07)
[2023-11-27] MEDS: GABAPENTIN 100 MG CAP PO SCH (22:08)
[2023-11-27] MEDS: traZODone HCL 100 MG TAB PO SCH (22:08)
[2023-11-27] MEDS: MEMANTINE HCL 10 MG TAB PO SCH (22:08)
[2023-11-27] MEDS: SIMVASTATIN 20 MG TAB PO SCH (22:09)
[2023-11-28] MEDS: LEVOTHYROXINE SODIUM 100 MCG TABLET PO SCH (06:21)
[2023-11-28] MEDS: METOPROLOL SUCC 50MG EXT REL TAB PO SCH ×2 (08:16→21:11)
[2023-11-28] MEDS: PSYLLIUM or GUAR GUM FIBER POWDER PACKET PO SCH (08:16)
[2023-11-28] MEDS: DONEPEZIL HCL 10 MG TAB PO SCH (08:16)
[2023-11-28] MEDS: LORATADINE 10 MG TAB PO PRN (08:16)
[2023-11-28] MEDS: DULoxetine HCL 20 MG CAP PO SCH (08:16)
[2023-11-28] MEDS: CYANOCOBALAMIN (B-12) 500 MCG TABLET PO SCH (08:16)
[2023-11-28] MEDS: CEROVITE ADV FORMULA TAB PO SCH (08:20)
[2023-11-28] MEDS: ADVANCED PROBIOTIC 1250 MG CAPSULE PO SCH (08:20)
[2023-11-28] MEDS: CHOLECALCIFEROL 1,000 UNITS 25 MCG TAB PO SCH (08:20)
[2023-11-28 08:41] LABS: BUN Creatinine Ratio 15.4 (10-20); Calcium 8.5 mg/dl (8.6-10.3); Creatinine Clr Calc Pharmacy 76.1 ml/min; Est GFR (African American) 96.5 ml/min; Est GFR (Non-African American) 83.3 ml/min; Magnesium 1.8 mg/dl (1.7-2.4); Potassium 3.8 mmol/L (3.5-5.1)
[2023-11-28 08:51] LABS: INR 2.8 (0.9-1.1); Prothrombin Time 28.8 Seconds (9.0-12.0)
--- NOTE | 2023-11-28 16:11 | Hospitalist Progress Note ---
Date of Service November 28, 2023 Assessment & Plan (1) Acute alteration in mental status: Plan: 83-year-old female with past medical history significant for hypothyroidism, hyperlipidemia, persistent atrial fibrillation, history of ventricular fibrillation, history of cardiac arrest s/p ICD implant, history of alcohol induced cardiomyopathy resolved, normal coronaries by cardiac cath in December 2014, hypertension, hyperlipidemia ,hypothyroidism, history of GI bleed., History of peptic ulcer, osteoarthritis, depression, anxiety, who lives alone and ambulates with walker since with confusion and abdominal pain. She is being managed for the following: Metabolic encephalopathy Acute UTI COVID-19 infection Patient presents from home with confusion and altered mental status. COVID-19 positive Urinalysis positive infection CT abdomen and pelvis -fecal debris is present in the distal colon. No other acute process. CTA chest chest no PE, bilateral lower lobe dependent atelectasis CT head without contrastno acute finding Urine culturemore than 3 types of organism; all high counts. Blood cultureno growth in 24 hours Continued on antibiotic with ceftriaxone. Patient's reported suprapubic pain and urinalysis is suggestive of infection. s/p 5 days of antibiotic PT OT evaluation; patient lives alone, recs is rehab. Persistent atrial fibrillation EKG on admission personally reviewed; atrial fibrillation with ventricular rate of 87. QTc of 457 Review of telemetry from November 20, 2023 at 1; 0 4 PM showed wide-complex tachycardia. Reviewed with cardiology; artifact. No concern for ventricular tachycardia Continue on metoprolol Coumadin on hold due to supratherapeutic INR, PT/INR in AM. Monitor PT/INR History of cardiac arrest status of ICD implant History of alcohol induced cardiomyopathy resolved Echo in 09/2022 shows normal EF Hypertension: On metoprolol, continue. Will monitor Hypothyroidism: On Synthyroid. Continue Hyperlipidemia: c/w home Statin DVT prophylaxis: On Coumadin. Disposition: Med/tele, pt/ot. cm to assist. [facility] Full [facility] Admission and Anticipated Discharge Date Admission Date: November 20, 2023 Subjective Patient seen and examined at bedside. Comfortable; not in distress. Bowel movements improving per RN. Denies fever, chills, chest pain, shortness of breath, abdominal pain or urinary symptoms. Appetite ok per rn. Per RN, patient is 1 person assist. Physical Exam Physical Exam: Constitutional: Awake, alert. Able to follow commands Respiratory: normal respiratory effort, lungs clear to auscultation, no wheeze, rales, rhonchi. Normal insp/exp effort, no accessory muscle use Cardiovascular: RRR, no murmur, trace ble edema Vessels: no JVD or carotid bruit Chest: normal inspection of chest Abdomen: normal bowel sounds, soft, nontender, no hepatosplenomegaly Musculoskeletal: no cyanosis or clubbing, extremities motor strength 5/5 Skin: no rashes, warm and dry normal turgor Neurologic: PERRL, EOMI, accommodation nl, no face palsy, no dysarthria CN's II- XI intact bilaterally and moves all extremities Psychiatric: A+Ox1-2, euthymic affect Results & Data Results & Data Vital Signs (Past 12 Hours) Vital Signs Temp Pulse Resp BP Pulse Ox O2 Del Method 11/28/23 14:56 36.4 C L 72 16 113/78 93 Room Air 11/28/23 10:07 Room Air 11/28/23 08:01 36.6 C 63 16 118/75 93 Room Air
[2023-11-28] MEDS: WARFARIN SOD 4 MG TAB PO SCH (17:28)
[2023-11-28] MEDS: MEMANTINE HCL 10 MG TAB PO SCH (21:11)
[2023-11-28] MEDS: traZODone HCL 100 MG TAB PO SCH (21:11)
[2023-11-28] MEDS: GABAPENTIN 100 MG CAP PO SCH (21:11)
[2023-11-28] MEDS: SIMVASTATIN 20 MG TAB PO SCH (21:11)
[2023-11-28] MEDS: MELATONIN 3 MG TAB PO PRN (21:13)
[2023-11-28] MEDS: ACETAMINOPHEN 325 MG TAB PO PRN (21:13)
[2023-11-29] MEDS: LEVOTHYROXINE SODIUM 100 MCG TABLET PO SCH (06:15)
[2023-11-29 07:52] LABS: INR 2.4 (0.9-1.1); Prothrombin Time 25.1 Seconds (9.0-12.0)
--- NOTE | 2023-11-29 07:55 | Hospitalist Progress Note ---
Date of Service November 29, 2023 Assessment & Plan (1) Acute alteration in mental status: Plan: Ms Palomino is an 83-year-old female with past medical history significant for hypothyroidism, hyperlipidemia, persistent atrial fibrillation, history of ventricular fibrillation, history of cardiac arrest s/p ICD implant, history of alcohol induced cardiomyopathy resolved, normal coronaries by cardiac cath in December 2014, hypertension, hyperlipidemia ,hypothyroidism, history of GI bleed., prior peptic ulcer, osteoarthritis, depression, anxiety, who lives alone and ambulates with walker admitted 11/20 with confusion and abdominal pain, found to be COVID positive and with constipation. She is being managed for the following: #Metabolic encephalopathy, resolved #Acute UTI #COVID-19 infection Patient presents from home with confusion and altered mental status. COVID-19 positive, Urinalysis positive infection,culture with multiple organisms CT abdomen and pelvis -fecal debris is present in the distal colon. No other acute process. CTA chest chest no PE, bilateral lower lobe dependent atelectasis CT head without contrastno acute finding Blood cultureno growth in 24 hours Continued on antibiotic with ceftriaxone 11/20-11/25. Patient's reported suprapubic pain and urinalysis is suggestive of infection. s/p 5 days of antibiotic PT OT evaluation; pending rehab placement, [facility] denied #Persistent atrial fibrillation EKG on admission personally reviewed; atrial fibrillation with ventricular rate of 87. QTc of 457 Review of telemetry from November 20, 2023 at 1; 0 4 PM showed wide-complex tachycardia. Reviewed with cardiology; artifact. No concern for ventricular tachycardia Continue on metoprolol Coumadin 2.4 this am, reduced warfarin to 2 mg, PT/INR in AM. Monitor PT/INR #History of cardiac arrest s/p ICD implant #NICM, alcohol induced cardiomyopathy resolved Echo in 09/2022 shows normal EF #Hypertension: On metoprolol, continue. Will monitor #Hypothyroidism: On Synthyroid. Continue #Hyperlipidemia: c/w home Statin DVT prophylaxis: On Coumadin. Disposition: Med/tele, pt/ot. cm to assist. Can DC to rehab. [facility]. Full code Admission and Anticipated Discharge Date Admission Date: November 20, 2023 Subjective NAEO Patient states she feels well overall and denies any acute concerns at this time Physical Exam Constitutional: WD/WN, vitals as above Respiratory: normal respiratory effort, lungs clear to auscultation Cardiovascular: irregularly irregular Gastrointestinal (Abdomen): normal bowel sounds, soft, nontender, no hepatosplenomegaly Results & Data Results & Data Vital Signs (Past 12 Hours) Vital Signs Temp Resp BP Pulse Ox O2 Del Method 11/29/23 07:28 Room Air 11/29/23 00:35 Room Air 11/28/23 21:16 36.7 C 18 114/76 94 Room Air Laboratory Results BMP 11/28/23 08:02 Sodium 138 Potassium 3.8 Chloride 105 Carbon Dioxide 27 BUN 10 Creatinine 0.65 Glucose 105 H Calcium 8.5 L Medications Administered Home Medications Medication Instructions Recorded Confirmed Last Taken cholecalciferol (vitamin D3) 25 1,000 unit PO QAM 10/02/19 11/19/23 12/30/19 mcg (1,000 unit) chewable tablet (Vitamin D3) gabapentin 100 mg capsule 100 mg PO HS 10/02/19 11/19/23 12/30/19 metoprolol succinate 50 mg 50 mg PO BID 10/02/19 11/19/23 12/31/19 07:00 tablet,extended release 24 hr multivitamin with minerals 1 tab PO QAM 10/02/19 11/19/23 12/30/19 (Hair,Skin and Nails tablet) simvastatin 20 mg tablet 20 mg PO HS 10/02/19 11/19/23 12/30/19 cyanocobalamin (vitamin B-12) 1,000 mcg PO QAM 12/24/19 11/19/23 12/30/19 1,000 mcg tablet (Vitamin B-12) melatonin 5 mg capsule 10 mg PO HS PRN Sleep 12/24/19 11/19/23 12/30/19 donepezil 10 mg tablet 10 mg PO DAILY 03/14/23 11/19/23 Unknown levothyroxine 100 mcg tablet 100 mcg PO DAILY 03/14/23 11/19/23 Unknown memantine 10 mg tablet 10 mg PO QPM 03/14/23 11/19/23 Unknown trazodone 100 mg tablet 100 mg PO QPM 03/14/23 11/19/23 Unknown duloxetine 20 mg capsule,delayed 20 mg PO QAM 05/19/23 11/19/23 Unknown release loratadine 10 mg tablet (Allergy 10 mg PO DAILY PRN allergies 05/19/23 11/19/23 Unknown Relief (loratadine)) warfarin 2 mg tablet 4 mg PO DAILY #180 tabs 10/16/23 11/19/23 11/19/23 18:00 Active Medications Generic Name Dose Route Start Last Admin Trade Name Freq PRN Reason Stop Dose Admin Acetaminophen 650 mg 11/20/23 04:02 11/28/23 21:13 Acetaminophen 325 Mg Tab PO 12/20/23 04:01 650 mg Q4H PRN Administration Pain or Fever Cyanocobalamin 1,000 mcg 11/20/23 09:00 11/28/23 08:16 Cyanocobalamin (B-12) 500 Mcg Tablet PO 12/20/23 08:59 1,000 mcg QAM SOL Administration Donepezil HCl 10 mg 11/20/23 09:00 11/28/23 08:16 Donepezil Hcl 10 Mg Tab PO 12/20/23 08:59 10 mg DAILY SOL Administration Duloxetine HCl 20 mg 11/20/23 09:00 11/28/23 08:16 Duloxetine Hcl 20 Mg Cap PO 12/20/23 08:59 20 mg QAM SOL Administration Gabapentin 100 mg 11/20/23 21:00 11/28/23 21:11 Gabapentin 100 Mg Cap PO 12/20/23 20:59 100 mg HS SOL Administration Lactobacillus Acidophilus 2 cap 11/27/23 09:00 11/28/23 08:20 Advanced Probiotic 1250 Mg Capsule PO 12/27/23 08:59 2 cap DAILY SOL Administration Levothyroxine Sodium 100 mcg 11/20/23 06:30 11/29/23 06:15 Levothyroxine Sodium 100 Mcg Tablet PO 12/20/23 06:29 100 mcg DAILYBB SOL Administration Loratadine 10 mg 11/20/23 04:02 11/28/23 08:16 Loratadine 10 Mg Tab PO 12/20/23 04:01 10 mg DAILY PRN Administration allergies Melatonin 3 mg 11/20/23 04:08 11/28/23 21:13 Melatonin 3 Mg Tab PO 12/20/23 04:07 3 mg HSZ PRN Administration Sleep Memantine 10 mg 11/20/23 21:00 11/28/23 21:11 Memantine Hcl 10 Mg Tab PO 12/20/23 20:59 10 mg QPM SOL Administration Metoprolol Succinate 50 mg 11/20/23 09:00 11/28/23 21:11 Metoprolol Succ 50mg Ext Rel Tab PO 12/20/23 08:59 50 mg BID SOL Administration Multivitamins/Minerals 1 tab 11/20/23 09:00 11/28/23 08:20 Cerovite Adv Formula Tab PO 12/20/23 08:59 1 tab QAM SOL Administration Psyllium Hydrophilic Mucilloid 1 pkt 11/26/23 09:00 11/28/23 08:16 Psyllium Or Guar Gum Fiber Powder Packet PO 12/26/23 08:59 1 pkt QAM SOL Administration Simvastatin 20 mg 11/20/23 21:00 11/28/23 21:11 Simvastatin 20 Mg Tab PO 12/20/23 20:59 20 mg HS SOL Administration Trazodone HCl 100 mg 11/20/23 21:00 11/28/23 21:11 Trazodone Hcl 100 Mg Tab PO 12/20/23 20:59 100 mg QPM SOL Administration Vitamin D 1,000 units 11/20/23 09:00 11/28/23 08:20 Cholecalciferol 1,000 Units 25 Mcg Tab PO 12/20/23 08:59 1,000 units QAM SOL Administration
[2023-11-29] MEDS: DONEPEZIL HCL 10 MG TAB PO SCH (08:01)
[2023-11-29] MEDS: CHOLECALCIFEROL 1,000 UNITS 25 MCG TAB PO SCH (08:01)
[2023-11-29] MEDS: CYANOCOBALAMIN (B-12) 500 MCG TABLET PO SCH (08:01)
[2023-11-29] MEDS: ADVANCED PROBIOTIC 1250 MG CAPSULE PO SCH (08:01)
[2023-11-29] MEDS: PSYLLIUM or GUAR GUM FIBER POWDER PACKET PO SCH (08:01)
[2023-11-29] MEDS: METOPROLOL SUCC 50MG EXT REL TAB PO SCH ×2 (08:01→21:30)
[2023-11-29] MEDS: DULoxetine HCL 20 MG CAP PO SCH (08:01)
[2023-11-29] MEDS: CEROVITE ADV FORMULA TAB PO SCH (08:02)
[2023-11-29] MEDS ORDERED: WARFARIN SOD 2 MG TAB PO SCH (16:00)
[2023-11-29] MEDS: MELATONIN 3 MG TAB PO PRN (21:29)
[2023-11-29] MEDS: ACETAMINOPHEN 325 MG TAB PO PRN (21:29)
[2023-11-29] MEDS: SIMVASTATIN 20 MG TAB PO SCH (21:30)
[2023-11-29] MEDS: traZODone HCL 100 MG TAB PO SCH (21:30)
[2023-11-29] MEDS: MEMANTINE HCL 10 MG TAB PO SCH (21:30)
[2023-11-29] MEDS: GABAPENTIN 100 MG CAP PO SCH (21:31)
[2023-11-30] MEDS: LEVOTHYROXINE SODIUM 100 MCG TABLET PO SCH (06:23)
--- NOTE | 2023-11-30 07:38 | Hospitalist Progress Note ---
Date of Service November 30, 2023 Assessment & Plan (1) Acute alteration in mental status: Plan: Ms Palomino is an 83-year-old female with past medical history significant for hypothyroidism, hyperlipidemia, persistent atrial fibrillation, history of ventricular fibrillation, history of cardiac arrest s/p ICD implant, history of alcohol induced cardiomyopathy resolved, normal coronaries by cardiac cath in December 2014, hypertension, hyperlipidemia ,hypothyroidism, history of GI bleed., prior peptic ulcer, osteoarthritis, depression, anxiety, who lives alone and ambulates with walker admitted 11/20 with confusion and abdominal pain, found to be COVID positive and with constipation. She is being managed for the following: #Metabolic encephalopathy, resolved #Acute UTI #COVID-19 infection *resolved, no further contact precautions Patient presents from home with confusion and altered mental status. COVID-19 positive, Urinalysis positive infection,culture with multiple organisms CT abdomen and pelvis -fecal debris is present in the distal colon. No other acute process. CTA chest chest no PE, bilateral lower lobe dependent atelectasis CT head without contrastno acute finding Blood cultureNGTD Continued on antibiotic with ceftriaxone 11/20-11/25. Patient's reported suprapubic pain and urinalysis is suggestive of infection. s/p 5 days of antibiotic PT OT evaluation; pending rehab placement, likely [facility] #Persistent atrial fibrillation EKG on admission personally reviewed; atrial fibrillation with ventricular rate of 87. QTc of 457 Review of telemetry from November 20, 2023 at 1; 0 4 PM showed wide-complex tachycardia. Reviewed with cardiology; artifact. No concern for ventricular tachycardia Continue on metoprolol Coumadin 2.2, resume home dosing Monitor PT/INR #History of cardiac arrest s/p ICD implant #NICM, alcohol induced cardiomyopathy resolved Echo in 09/2022 shows normal EF #Hypertension: On metoprolol, continue. Will monitor #Hypothyroidism: On Synthyroid. Continue #Hyperlipidemia: c/w home Statin DVT prophylaxis: On Coumadin. Disposition: Med/tele, pt/ot. cm to assist. Can DC to rehab. MedSurg. Full code Admission and Anticipated Discharge Date Admission Date: November 20, 2023 Subjective NAEO, reports feeling well over all but eager for discharge. Insurance auth still pending Physical Exam Constitutional: WD/WN, vitals as above Respiratory: normal respiratory effort, lungs clear to auscultation Gastrointestinal (Abdomen): normal bowel sounds, soft, nontender, no hepatosplenomegaly Results & Data Results & Data Vital Signs (Past 12 Hours) Vital Signs Temp Pulse Resp BP BP Pulse Ox O2 Del Method 11/30/23 03:24 36.4 C L 62 18 120/72 94 Room Air 11/29/23 21:27 36.5 C 64 18 124/81 94 Room Air Laboratory Results Short CBC 11/30/23 Range/Units 07:45 WBC 7.05 (4.8-10.8) K/ul Hgb 13.8 (12.0-16.0) g/dl Hct 41.4 (37.0-47.0) % Plt Count 277 (130-400) K/uL BMP 11/30/23 11/30/23 07:45 09:12 Sodium TNP 137 Potassium TNP 4.4 Chloride 105 Carbon Dioxide 30 BUN 12 Creatinine 0.82 Glucose 94 Calcium 8.3 L Medications Administered Home Medications Medication Instructions Recorded Confirmed Last Taken cholecalciferol (vitamin D3) 25 1,000 unit PO QAM 10/02/19 11/19/23 12/30/19 mcg (1,000 unit) chewable tablet (Vitamin D3) gabapentin 100 mg capsule 100 mg PO HS 10/02/19 11/19/23 12/30/19 metoprolol succinate 50 mg 50 mg PO BID 10/02/19 11/19/23 12/31/19 07:00 tablet,extended release 24 hr multivitamin with minerals 1 tab PO QAM 10/02/19 11/19/23 12/30/19 (Hair,Skin and Nails tablet) simvastatin 20 mg tablet 20 mg PO HS 10/02/19 11/19/23 12/30/19 cyanocobalamin (vitamin B-12) 1,000 mcg PO QAM 12/24/19 11/19/23 12/30/19 1,000 mcg tablet (Vitamin B-12) melatonin 5 mg capsule 10 mg PO HS PRN Sleep 12/24/19 11/19/23 12/30/19 donepezil 10 mg tablet 10 mg PO DAILY 03/14/23 11/19/23 Unknown levothyroxine 100 mcg tablet 100 mcg PO DAILY 03/14/23 11/19/23 Unknown memantine 10 mg tablet 10 mg PO QPM 03/14/23 11/19/23 Unknown trazodone 100 mg tablet 100 mg PO QPM 03/14/23 11/19/23 Unknown duloxetine 20 mg capsule,delayed 20 mg PO QAM 05/19/23 11/19/23 Unknown release loratadine 10 mg tablet (Allergy 10 mg PO DAILY PRN allergies 05/19/23 11/19/23 Unknown Relief (loratadine)) warfarin 2 mg tablet 4 mg PO DAILY #180 tabs 10/16/23 11/19/23 11/19/23 18:00 Active Medications Generic Name Dose Route Start Last Admin Trade Name Freq PRN Reason Stop Dose Admin Acetaminophen 650 mg 11/20/23 04:02 11/29/23 21:29 Acetaminophen 325 Mg Tab PO 12/20/23 04:01 650 mg Q4H PRN Administration Pain or Fever Cyanocobalamin 1,000 mcg 11/20/23 09:00 11/30/23 08:04 Cyanocobalamin (B-12) 500 Mcg Tablet PO 12/20/23 08:59 1,000 mcg QAM SOL Administration Donepezil HCl 10 mg 11/20/23 09:00 11/30/23 08:03 Donepezil Hcl 10 Mg Tab PO 12/20/23 08:59 10 mg DAILY SOL Administration Duloxetine HCl 20 mg 11/20/23 09:00 11/30/23 08:03 Duloxetine Hcl 20 Mg Cap PO 12/20/23 08:59 20 mg QAM SOL Administration Gabapentin 100 mg 11/20/23 21:00 11/29/23 21:31 Gabapentin 100 Mg Cap PO 12/20/23 20:59 100 mg HS SOL Administration Lactobacillus Acidophilus 2 cap 11/27/23 09:00 11/30/23 08:04 Advanced Probiotic 1250 Mg Capsule PO 12/27/23 08:59 2 cap DAILY SOL Administration Levothyroxine Sodium 100 mcg 11/20/23 06:30 11/30/23 06:23 Levothyroxine Sodium 100 Mcg Tablet PO 12/20/23 06:29 100 mcg DAILYBB SOL Administration Loratadine 10 mg 11/20/23 04:02 11/28/23 08:16 Loratadine 10 Mg Tab PO 12/20/23 04:01 10 mg DAILY PRN Administration allergies Melatonin 3 mg 11/20/23 04:08 11/29/23 21:29 Melatonin 3 Mg Tab PO 12/20/23 04:07 3 mg HSZ PRN Administration Sleep Memantine 10 mg 11/20/23 21:00 11/29/23 21:30 Memantine Hcl 10 Mg Tab PO 12/20/23 20:59 10 mg QPM SOL Administration Metoprolol Succinate 50 mg 11/20/23 09:00 11/30/23 08:03 Metoprolol Succ 50mg Ext Rel Tab PO 12/20/23 08:59 50 mg BID SOL Administration Multivitamins/Minerals 1 tab 11/20/23 09:00 11/30/23 08:02 Cerovite Adv Formula Tab PO 12/20/23 08:59 1 tab QAM SOL Administration Psyllium Hydrophilic Mucilloid 1 pkt 11/26/23 09:00 11/30/23 08:03 Psyllium Or Guar Gum Fiber Powder Packet PO 12/26/23 08:59 1 pkt QAM SOL Administration Simvastatin 20 mg 11/20/23 21:00 11/29/23 21:30 Simvastatin 20 Mg Tab PO 12/20/23 20:59 20 mg HS SOL Administration Trazodone HCl 100 mg 11/20/23 21:00 11/29/23 21:30 Trazodone Hcl 100 Mg Tab PO 12/20/23 20:59 100 mg QPM SOL Administration Vitamin D 1,000 units 11/20/23 09:00 11/30/23 08:04 Cholecalciferol 1,000 Units 25 Mcg Tab PO 12/20/23 08:59 1,000 units QAM SOL Administration Warfarin Sodium 2 mg 11/29/23 16:00 11/29/23 16:16 Warfarin Sod 2 Mg Tab PO 12/29/23 15:59 2 mg DAILY@1600 SOL Administration
[2023-11-30] MEDS: CEROVITE ADV FORMULA TAB PO SCH (08:02)
[2023-11-30] MEDS: METOPROLOL SUCC 50MG EXT REL TAB PO SCH ×2 (08:03→20:02)
[2023-11-30] MEDS: PSYLLIUM or GUAR GUM FIBER POWDER PACKET PO SCH (08:03)
[2023-11-30] MEDS: DONEPEZIL HCL 10 MG TAB PO SCH (08:03)
[2023-11-30] MEDS: DULoxetine HCL 20 MG CAP PO SCH (08:03)
[2023-11-30] MEDS: CYANOCOBALAMIN (B-12) 500 MCG TABLET PO SCH (08:04)
[2023-11-30] MEDS: ADVANCED PROBIOTIC 1250 MG CAPSULE PO SCH (08:04)
[2023-11-30] MEDS: CHOLECALCIFEROL 1,000 UNITS 25 MCG TAB PO SCH (08:04)
[2023-11-30 08:15] LABS: Hematocrit (blood only) 41.4 % (37.0-47.0); Hemoglobin 13.8 g/dl (12.0-16.0); Mean Corpuscular Hemoglobin 29.6 pg (25.0-34.0); Mean Corpuscular Hgb Conc 33.3 g/dL (32.0-36.0); Mean Corpuscular Volume 88.8 fL (80.0-100.0); Mean Platelet Volume 10.5 fL (9.4-12.4); Platelet Count 277 K/uL (130-400); RDW Coefficient of Variation 13.2 % (11.5-14.5); Red Blood Count 4.66 M/uL (4.20-5.40); White Blood Count 7.05 K/ul (4.8-10.8)
[2023-11-30 08:44] LABS: INR 2.2 (0.9-1.1); Prothrombin Time 22.6 Seconds (9.0-12.0)
[2023-11-30 08:53] LABS: BUN Creatinine Ratio 14.6 (10-20); Blood Urea Nitrogen 12 mg/dl (6-23); Calcium 8.3 mg/dl (8.6-10.3); Carbon Dioxide 30 mmol/L (21-32); Chloride 105 mmol/L (98-107); Creatinine Clr Calc Pharmacy 60.3 ml/min; Est GFR (African American) 77.8 ml/min; Est GFR (Non-African American) 67.1 ml/min; Glucose 94 mg/dl (70-99(Fasting))
[2023-11-30 09:53] LABS: Potassium 4.4 mmol/L (3.5-5.1)
[2023-11-30] MEDS ORDERED: WARFARIN SOD 4 MG TAB PO SCH (16:00)
[2023-11-30] MEDS: SIMVASTATIN 20 MG TAB PO SCH (20:02)
[2023-11-30] MEDS: traZODone HCL 100 MG TAB PO SCH (20:02)
[2023-11-30] MEDS: MEMANTINE HCL 10 MG TAB PO SCH (20:02)
[2023-11-30] MEDS: GABAPENTIN 100 MG CAP PO SCH (20:02)
[2023-12-01] MEDS: LEVOTHYROXINE SODIUM 100 MCG TABLET PO SCH (05:30)
[2023-12-01] MEDS: ADVANCED PROBIOTIC 1250 MG CAPSULE PO SCH (08:31)
[2023-12-01] MEDS: DONEPEZIL HCL 10 MG TAB PO SCH (08:31)
[2023-12-01] MEDS: METOPROLOL SUCC 50MG EXT REL TAB PO SCH (08:31)
[2023-12-01] MEDS: CEROVITE ADV FORMULA TAB PO SCH (08:32)
[2023-12-01] MEDS: PSYLLIUM or GUAR GUM FIBER POWDER PACKET PO SCH (08:32)
[2023-12-01] MEDS: DULoxetine HCL 20 MG CAP PO SCH (08:32)
[2023-12-01] MEDS: CHOLECALCIFEROL 1,000 UNITS 25 MCG TAB PO SCH (08:32)
[2023-12-01] MEDS: CYANOCOBALAMIN (B-12) 500 MCG TABLET PO SCH (08:32)
--- NOTE | 2023-12-01 16:39 | Discharge Summary ---
Discharge Summary Date of Service December 01, 2023 Notes For Next Care Provider Medication Changes From Visit None Admission HPI Per Admitting Provider 83-year-old female with past medical history significant for hypothyroidism, hyperlipidemia, persistent atrial fibrillation, history of ventricular fibrillation, history of cardiac arrest s/p ICD implant, history of alcohol induced cardiomyopathy resolved, normal coronaries by cardiac cath in December 2014, hypertension, hyperlipidemia ,hypothyroidism, history of GI bleed., History of peptic ulcer, osteoarthritis, depression, anxiety, who lives alone and ambulates with walker and son lives about a mile from her was brought in because of confusion and abdominal pain. Patient is hard of hearing. Can tell her name. Knows that she is in the hospital. Denies headache. Denies chest pain. Denies shortness of breath. Denies nausea. Difficult to get any history from the patient. Son states she was diagnosed with COVID yesterday. She has 1 day symptoms of diarrhea, abdominal discomfort. Has mild cough. No fevers. When he went to check on her she was confused and could not figure out simple stuff and was brought in here. Currently medically stable. Past medical history. As mentioned above Past surgical history. Bilateral knee arthroplasty. Cardiac cath. Colonoscopy. EGD. EGD with biopsy. S/p ICD. Right knee arthroscopy. Appendectomy. Cataracts. Sacroiliac joint injection. Sigmoidoscopy. Total abdominal hysterectomy with removal of tubes. Social history.-. Lives alone. No smoking. No alcohol use currently. No drug use. Family history. Father had diabetes. Part of stomach removed. Mother had diabetes. Thyroid disorder. Sister has hypertension. Admission Exam Per Admitting Provider General- Not in distress. Head- atraumatic Eyes- PERRL. ENT- oropharynx clear Neck- supple, no JVD. Lungs- clear to auscultation n wheezing or crackles. Heart- regular rhythm; no murmur, no gallop. Abdomen- normal bowel sounds, soft, nontender, no distension. Extremities- lower extremity edema present, no erythema seen. Neuro- alert, oriented x 2; PERRL, no facial palsy; no dysarthria;. Skin- warm & dry Principal Dx & Hospital Course #1 = Principal Diagnosis (1) Acute alteration in mental status: Ms Palomino is an 83-year-old female with past medical history significant for hypothyroidism, hyperlipidemia, persistent atrial fibrillation, history of ventricular fibrillation, history of cardiac arrest s/p ICD implant, history of alcohol induced cardiomyopathy resolved, normal coronaries by cardiac cath in December 2014, hypertension, hyperlipidemia ,hypothyroidism, history of GI bleed., prior peptic ulcer, osteoarthritis, depression, anxiety, who lives alone and ambulates with walker admitted 11/20 with confusion and abdominal pain, found to be COVID positive and with constipation. She is being managed for the following: #Metabolic encephalopathy, resolved #Acute UTI #COVID-19 infection *resolved, no further contact precautions Patient presents from home with confusion and altered mental status. COVID-19 positive, Urinalysis positive infection,culture with multiple organisms CT abdomen and pelvis -fecal debris is present in the distal colon. No other acute process. CTA chest chest no PE, bilateral lower lobe dependent atelectasis CT head without contrastno acute finding Blood cultureNGTD Continued on antibiotic with ceftriaxone 11/20-11/25. Patient's reported suprapubic pain and urinalysis is suggestive of infection. s/p 5 days of antib iotic Transported to [facility] -Prior Auth completed: Explained that though patient may ambulate a total of "120 feet" she is notably unsteady, weak and not at prior level of functioning. Patient is ambitious and eager to work with PT/OT #Persistent atrial fibrillation EKG on admission personally reviewed; atrial fibrillation with ventricular rate of 87. QTc of 457 Review of telemetry from November 20, 2023 at 1; 0 4 PM showed wide-complex tachycardia. Reviewed with cardiology; artifact. No concern for ventricular tachycardia Continue on metoprolol Continue on 4mg warfarin #History of cardiac arrest s/p ICD implant #NICM, alcohol induced cardiomyopathy resolved Echo in 09/2022 shows normal EF #Hypertension: On metoprolol, r #Hypothyroidism: On Synthyroid. #Hyperlipidemia: c/w home Statin On day of discharge, patient was ecstatic to leave. She denied any acute concerns or pain. Updated Medication List Medication Instructions Recorded Confirmed Type cholecalciferol (vitamin D3) 25 1,000 unit PO QAM 10/02/19 11/19/23 History mcg (1,000 unit) chewable tablet (Vitamin D3) gabapentin 100 mg capsule 100 mg PO HS 10/02/19 11/19/23 History metoprolol succinate 50 mg 50 mg PO BID 10/02/19 11/19/23 History tablet,extended release 24 hr multivitamin with minerals 1 tab PO QAM 10/02/19 11/19/23 History (Hair,Skin and Nails tablet) simvastatin 20 mg tablet 20 mg PO HS 10/02/19 11/19/23 History cyanocobalamin (vitamin B-12) 1,000 mcg PO QAM 12/24/19 11/19/23 History 1,000 mcg tablet (Vitamin B-12) melatonin 5 mg capsule 10 mg PO HS PRN Sleep 12/24/19 11/19/23 History donepezil 10 mg tablet 10 mg PO DAILY 03/14/23 11/19/23 History levothyroxine 100 mcg tablet 100 mcg PO DAILY 03/14/23 11/19/23 History memantine 10 mg tablet 10 mg PO QPM 03/14/23 11/19/23 History trazodone 100 mg tablet 100 mg PO QPM 03/14/23 11/19/23 History duloxetine 20 mg capsule,delayed 20 mg PO QAM 05/19/23 11/19/23 History release loratadine 10 mg tablet (Allergy 10 mg PO DAILY PRN allergies 05/19/23 11/19/23 History Relief (loratadine)) warfarin 2 mg tablet 4 mg PO DAILY #180 tabs 10/16/23 11/19/23 Rx Hospital Stay Data Consultations 11/19/23 22:55 ED Decision to Admit Stat 11/20/23 13:45 Consult Cardiology Routine Diagnostic Imagining Performed 11/19/23 20:50 CT head/brain wo con Stat 11/19/23 21:20 CT abd pelvis IV con only Stat CT angio chest PE protocol Stat Pending Results Patient Have Any Pending Studies at Discharge: No Discharge Instructions Given to Patient (Per Discharging Provider) You were admitted for management of a urinary tract infection and COVID infection. You were treated with a 7 day course of IV antibiotics. There was notable improvement in your mental status and medical condition. You completed quarantine for COVID precautions. Your home medications did not change. Please resume medications as previously prescribed. Please have your INR checked by 12/04/2023. Total Time Total Time Spent Total Time Spent (In Minutes): 55
== END 2023-12-01 15:11 | DRG 177 ==
LOC: ED 20:41 → EDINP 11-20 03:37 → SUATTDRO 11-20 03:37 → 2N 11-20 04:03

== ENCOUNTER 2025-08-03 11:26 | Observation (INO) ==
[2025-08-03] MEDS ORDERED: DIPHTHER/TETAN/PERTUS Vaccine (Tdap, Adol/Adult) 0.5mL IM ONE (11:44)
--- NOTE | 2025-08-03 12:18 | Emergency Department Note ---
Impression & Plan Frequent falls, Chronic anticoagulation, Multiple abrasions ED Provider Note NAME: HEIDI BENAVIDES AGE: 85 SEX: F : 1940 ARRIVES VIA: Walk-In INFORMANT: Patient, family ED PROVIDER(S): Melvin Benton DO CHIEF COMPLAINT: fall x2 HPI: Nursing staff made injury alert on arrival. This is an 85-year-old female with the PMHx of Parkinsonian is him, possible Lewy body dementia, paroxysmal atrial fibrillation on chronic anticoagulation with Eliquis, prior ventricular tachycardia with arrest s/p AICD placement, hypertension, hyperlipidemia, DM2, hypothyroidism, and anxiety/depression presenting to [facility] for further evaluation of falls. Patient is accompanied by per family who provide additional history. History throughout by the patient as well as her family members. The patient has fell at least 2 times over the weekend. She did strike her head. No loss of consciousness was noted. She is chronically anticoagulated with Eliquis. She is reporting pain in her left wrist/hand as well as knee. She does have some pain between her shoulder blades. The patient is reporting some shortness of breath. She is mildly confused but able to retain some history. She is unsure of the events leading up to her falls. Family and the patient do suspect that these were likely mechanical but the patient is also reporting that she blacked out. They deny fever or chills. No cough or congestion. Denies chest pain or palpitations. They deny abdominal pain, nausea and vomiting. No urinary complaints. No recent changes in bowel movements. Patient denies recent changes in medications or OTC supplements. Patient offers no other complaints, today. ADDITIONAL HISTORY OBTAINED: Per HPI Chronic Medical/Social Conditions Affecting Care: Per HPI PAST MEDICAL HISTORY: See Below PAST SURGICAL HISTORY: See Below FAMILY HISTORY: See Below SOCIAL HISTORY: See Below HOME MEDICATIONS: See Below ALLERGIES: See Below VITALS: See Below PHYSICAL EXAMINATION: Primary Survey Airway: Intact Breathing: Normal, breath sounds equal bilaterally Circulation: Skin warm, distal pulses 2+, capillary refill less than 2 seconds Disability Pupils: Equal and reactive to light, 4mm, brisk GCS: 15, E = 4, V=4, M= 6 Motor Function: Moves all extremities. Sensory: No deficits Secondary Survey GEN: Well developed and well-nourished HENT: Head: There is a healing small abrasion/laceration over the left brow. No other evidence of trauma on the face or head. No raccoon eyes or whyte sign. Mouth/Throat: No blood within the oral cavity. No malocclusion. Eyes: EOMI. Pupils are 4 mm, round and reactive bilaterally. Ears: TMs are intact bilaterally. No hematomas. No hemotympanum. Nose: No nasal septal hematoma. No gross deformity. Neck: No midline C-spine tenderness. No step-offs. Cardiovascular: RRR. Pulses present in all 4 extremities. Pulmonary/Chest: BS equal bilaterally. No tenderness or ecchymosis. Abdomen: No tenderness or ecchymosis. Musculoskeletal: Pelvis: No instability. Back: There is upper to middle thoracic spine midline tenderness. No step-offs or deformities. Extremities: No gross deformities. L hand TTP. No anatomical snuffbox tenderness to palpation. Extremity is neurovascularly intact. There is some tenderness over the left knee with an abrasion. There are abrasions over the left hand. No large deformities and extremities are neurovascularly intact Skin: no laceration. multiple abrasions as outlined above.. Neuro: no focal neurological deficits. GCS as above. The patient is mildly confused and inattentive. Psych: Normal mood and affect. MEDICAL DECISION MAKING: Vitals: The patient is afebrile and HDS. An order was placed for continuous cardiorespiratory monitoring. I reviewed and this shows a rate of 60-90s with regular rhythm. Differential diagnoses include but not limited to multi-system trauma, ICH, skull fracture, spine / spinal cord injury, fracture, dislocation, traumatic abdominal injuries, solid / visceral organ injuries, MSK sprain / strain, contusion, whiplash, concussion In summary, this is an 85yoF who presented as an injury alert. Patient was brought into the emergency/resuscitation room by nursing staff. Full ATLS protocol was initiated under direction of the ED team. The history was concerning for multi-system trauma. Airway intact and self maintained, breath sounds bilateral and equal along with normal effort, circulation intact with pp in 4 extremities, GCS 14 with normal speech and sensorium and SOLIS. Full physical examination as above. History and secondary survey as above. Labs drawn. eFAST deferred for WBCT as the patient has no abdominal/chest complaints, evidence of trauma in these areas or hemodynamic instability. Collar cleared by NEXUS criteria. Pt was given tetanus. Initial/stabilizing treatments include Pain control medications including Tylenol, ibuprofen and lidocaine patch. Imaging performed and reviewed as above. Patient was taken to the CT suite for WBCT. Labs were independently interpreted by me as normal. No leukocytosis or anemia. No electrolyte derangements or kidney dysfunction. LFTs are normal. CTH independently interpreted by me reveals no evidence of ICH. No significant hydrocephalus. No major skull fractures. CTH does not demonstrate findings to suggest an etiology of the patient's symptoms or presentation, today. CXR independently interpreted by me reveals no evidence of focal consolidation to suggest pna. No large pneumothorax or pleural effusion. CT C-spine was obtained as we were obtaining scans of the rest of the body. No traumatic injuries were noted. CT of the chest, abdomen and pelvis were unremarkable for acute traumatic pathology. I do feel the patient's symptoms are likely related to her ongoing dementia and parkinsonian syndrome. I do feel she is unsafe to return home given frequent falls. Patient and family are agreeable to this. Patient has frequent falls with multiple abrasions today. She is mildly confused. Based on the patient's age, code existing illnesses, exam and lab findings, the decision to treat as an inpatient was made. I had a prolonged discussion with the patient's family members. We are concerned for her safety at home. Patient will be admitted for care management as well as physical and Occupational Therapy evaluations. The patient and family members are interested in placement given concerns for safety and frequent falls. The patient was discussed with the hospitalist team and they are agreeable to admit the patient for placement.. Past Med/Surg History Problem List (Updated 08/06/25 @ 16:31 by Melvin Benton DO) Multiple abrasions (Acute) Chronic anticoagulation (Acute) Frequent falls (Acute) Dementia Frequent falls Parkinsonism Chronic anticoagulation Abdominal pain, lower (Acute) COVID-19 virus infection (Acute) Acute alteration in mental status (Acute) Nonischemic cardiomyopathy Atrial fibrillation, permanent Colon cancer screening Generalized weakness (Acute) Confusion (Acute) Fall (Acute) Abnormal EKG (Acute) DVT prophylaxis Abnormal CT of the abdomen Encounter for pre-operative examination Diarrhea Hypokalemia Discharge planning issues Cirrhosis of liver noted on CT 10/02/19 Hx of cardiac cath (Chronic) "2004-demonstrated normal coronary arteries" S/P right knee arthroscopy (Chronic) S/P KATHLEEN-BSO (Chronic) History of cataract surgery (Chronic) RIGHT AND LEFT Hx of appendectomy (Chronic) History of total left knee replacement (Chronic) Sudden cardiac (Chronic) REASON THAT SHE HAS ICD History of total right knee replacement (Chronic) DM type 2 (diabetes mellitus, type 2) (Chronic) Dyslipidemia (Chronic) Hypertension (Chronic) ICD (implantable cardioverter-defibrillator) in place (Chronic) [employer] initially implanted in 2004. 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 Other Information That Helps Us Care for You: No Feels Safe at Home: Yes Safety Concerns: Feels Safe At This Time Assistive Devices: Cane, Glasses and Walker Allergies Allergies Allergy/AdvReac Type Severity Reaction Status Date / Time clarithromycin Allergy Unknown Unknown Verified 08/03/25 14:51 codeine Allergy Unknown Unknown Verified 08/03/25 14:51 Corticosteroids AdvReac Intermediate BODY Verified 08/03/25 14:51 (Glucocorticoids) SWELLS UP morphine AdvReac Intermediate CONFUSION Verified 08/03/25 14:51 Home Meds Home Medications Medication Instructions Recorded Confirmed cholecalciferol (vitamin D3) 25 1,000 unit PO QAM 10/02/19 08/03/25 mcg (1,000 unit) chewable tablet (Vitamin D3) gabapentin 100 mg capsule 200 mg PO HS 10/02/19 08/03/25 metoprolol succinate 50 mg 50 mg PO BID 10/02/19 08/03/25 tablet,extended release 24 hr multivitamin with minerals 1 tab PO QAM 10/02/19 08/03/25 (Hair,Skin and Nails tablet) simvastatin 20 mg tablet 20 mg PO HS 10/02/19 08/03/25 cyanocobalamin (vitamin B-12) 1,000 mcg PO QAM 12/24/19 08/03/25 1,000 mcg tablet (Vitamin B-12) melatonin 5 mg capsule 10 mg PO HS PRN Sleep 12/24/19 08/03/25 donepezil 10 mg tablet 10 mg PO QAM 03/14/23 08/03/25 levothyroxine 100 mcg tablet 100 mcg PO DAILY 03/14/23 08/03/25 memantine 10 mg tablet 10 mg PO HS 03/14/23 08/03/25 trazodone 100 mg tablet 100 mg PO QPM 03/14/23 08/03/25 duloxetine 20 mg capsule,delayed 20 mg PO QAM 05/19/23 08/03/25 release loratadine 10 mg tablet (Allergy 10 mg PO DAILY PRN allergies 05/19/23 08/03/25 Relief (loratadine)) Previous Rx's Medication Instructions Recorded carbidopa 25 mg-levodopa 100 mg 1 tab PO TID #90 tabs 02/10/25 tablet apixaban 5 mg tablet (Eliquis) 2.5 mg (1/2 x 5 mg) PO BID #180 04/08/25 tabs Results & Data (ED) Vital Signs Vital Signs - 24 hr 08/03/25 11:27 08/03/25 12:05 08/03/25 12:05 Temperature 36.4 C L 36.5 C Temperature Source Temporal Artery Scan Oral Pulse Rate 70 60 Pulse Rate [Right Finger] 69 Pulse Rhythm Regular Respiratory Rate 20 14 16 Respiratory Effort / Characteristics Non-Labored Spontaneous Non-Labored Respiratory Depth Normal Normal Respiratory Pattern Regular Regular Blood Pressure 107/71 Blood Pressure [Right Arm] 112/83 Blood Pressure Mean 83 Blood Pressure Mean [Right Arm] 92 Pulse Oximetry 93 98 98 Oxygen Delivery Method Room Air Room Air Room Air Sepsis Recent Fever Within 48 Hours No Sepsis New/Unexplained Change in Mental Status N/A Sepsis Action Taken by Nursing No Action Required 08/03/25 12:11 Temperature Temperature Source Pulse Rate 66 Pulse Rate [Right Finger] Pulse Rhythm Respiratory Rate Respiratory Effort / Characteristics Respiratory Depth Respiratory Pattern Blood Pressure Blood Pressure [Right Arm] Blood Pressure Mean Blood Pressure Mean [Right Arm] Pulse Oximetry Oxygen Delivery Method Sepsis Recent Fever Within 48 Hours Sepsis New/Unexplained Change in Mental Status Sepsis Action Taken by Nursing Laboratory Data 08/06/25 05:38 08/06/25 05:38 Lab Results 08/03/25 08/03/25 Range/Units 12:25 12:32 WBC 7.38 (4.8-10.8) K/ul RBC 5.17 (4.20-5.40) M/uL Hgb 15.1 (12.0-16.0) g/dl POC Hgb 16.3 H (12.0-16.0) g/dl Hct 47.4 H (37.0-47.0) % POC Hct 48 H (37-47) % MCV 91.7 (80.0-100.0) fL MCH 29.2 (25.0-34.0) pg MCHC 31.9 L (32.0-36.0) g/dL RDW Std Deviation 48.1 H (36.4-46.3) fL RDW Coeff of Lisa 14.2 (11.5-14.5) % Plt Count 208 (130-400) K/uL MPV 11.8 (9.4-12.4) fL Immature Gran % (Auto) 0.1 % Neut % (Auto) 68.3 % Lymph % (Auto) 21.8 % Grant % (Auto) 8.4 % Eos % (Auto) 0.9 % Baso % (Auto) 0.5 % Neut # (Auto) 5.03 (1.40-6.50) K/uL Lymph # (Auto) 1.61 (1.20-3.40) K/uL Grant # (Auto) 0.62 H (0.11-0.59) K/uL Eos # (Auto) 0.07 (0.00-0.50) K/uL Baso # (Auto) 0.04 (0.00-0.20) K/uL Immature Gran # (Auto) 0.01 (0.01-0.20) K/uL PT 11.7 (9.0-12.0) Seconds INR 1.1 (0.9-1.1) APTT 29 (21-31) Seconds PTT Ratio 1.1 POC Sodium 140 (135-144) mmol/L Sodium 138 (136-145) mmol/L POC Potassium 3.8 (3.3-5.0) mmol/L Potassium 3.9 (3.5-5.1) mmol/L POC Chloride 105 (101-112) mmol/L Chloride 105 (98-107) mmol/L Carbon Dioxide 27 (21-32) mmol/L POC Total CO2 26 (24-31) mmol/L Anion Gap 6 (3-11) POC Anion Gap 15.0 L (16-25) mmol/L POC BUN 20 H (7-18) mg/dl BUN 18 (6-23) mg/dl Creatinine 0.91 (0.6-1.2) mg/dl POC Creatinine 1.0 (0.6-1.3) mg/dl Est Cr Clr Drug Dosing Not Reportable eGFR 62.60 BUN/Creatinine Ratio 19.8 (10-20) Glucose 111 H (70-99(Fasting)) mg/dl POC Glucose (other) 114 H (70-99) mg/dl Calcium 9.2 (8.6-10.3) mg/dl POC Ioniz Calcium Myrtle 1.13 (1.12-1.32) mmol/l Total Bilirubin 1.0 (0.2-1.0) mg/dl AST 30 (13-39) U/L ALT < 3 L (7-52) U/L Alkaline Phosphatase 71 (34-104) U/L Total Protein 7.1 (6.0-8.3) gm/dl Albumin 3.9 (3.4-5.0) gm/dl Globulin 3.2 (2.5-4.0) gm/dl Albumin/Globulin Ratio 1.2 (0.9-2) Lipase 34 (11-82) U/L TSH 1.821 (0.300-4.500) uIu/ml Administered Medications Apixaban (Apixaban 2.5 Mg Tab) 2.5 mg PO BID SOL Stop: 09/02/25 20:59 Last Admin: 08/06/25 08:40 Dose: 2.5 mg Documented By: Admin: 08/05/25 21:02 Dose: 2.5 mg Documented By: Admin: 08/05/25 08:21 Dose: 2.5 mg Documented By: Admin: 08/04/25 20:01 Dose: 2.5 mg Documented By: Admin: 08/04/25 09:42 Dose: 2.5 mg Documented By: Admin: 08/03/25 20:08 Dose: 2.5 mg Documented By: HAILY Bisacodyl (Bisacodyl 5 Mg Tabec) 5 mg PO DAILY SOL Stop: 09/02/25 15:54 Last Admin: 08/06/25 08:41 Dose: Not Given Documented By: Admin: 08/05/25 09:21 Dose: 5 mg Documented By: Admin: 08/04/25 13:24 Dose: Not Given Documented By: Admin: 08/03/25 16:52 Dose: Not Given Documented By: ROMERO Carbidopa/Levodopa (Carbidopa/Levodopa 25/100mg Tab) 1 tab PO TID SOL Stop: 09/02/25 20:59 Last Admin: 08/06/25 13:35 Dose: 1 tab Documented By: Admin: 08/06/25 08:39 Dose: 1 tab Documented By: Admin: 08/05/25 21:03 Dose: 1 tab Documented By: Admin: 08/05/25 13:54 Dose: 1 tab Documented By: Admin: 08/05/25 08:21 Dose: 1 tab Documented By: Admin: 08/04/25 20:01 Dose: 1 tab Documented By: Admin: 08/04/25 14:22 Dose: 1 tab Documented By: Admin: 08/04/25 09:41 Dose: 1 tab Documented By: Admin: 08/03/25 20:09 Dose: 1 tab Documented By: HAILY Cyanocobalamin (Cyanocobalamin (B-12) 500 Mcg Tablet) 1,000 mcg PO QAM SOL Stop: 09/03/25 08:59 Last Admin: 08/06/25 08:40 Dose: 1,000 mcg Documented By: Admin: 08/05/25 08:20 Dose: 1,000 mcg Documented By: Admin: 08/04/25 09:41 Dose: 1,000 mcg Documented By: PME Donepezil HCl (Donepezil Hcl 10 Mg Tab) 10 mg PO QA SOL Stop: 09/02/25 15:14 Last Admin: 08/06/25 08:40 Dose: 10 mg Documented By: Admin: 08/05/25 08:22 Dose: 10 mg Documented By: Admin: 08/04/25 09:42 Dose: 10 mg Documented By: Admin: 08/03/25 16:54 Dose: 10 mg Documented By: PME Duloxetine HCl (Duloxetine Hcl 20 Mg Cap) 20 mg PO [facility] SOL Stop: 09/03/25 08:59 Last Admin: 08/06/25 08:40 Dose: 20 mg Documented By: Admin: 08/05/25 08:21 Dose: 20 mg Documented By: Admin: 08/04/25 09:42 Dose: 20 mg Documented By: PME Gabapentin (Gabapentin 100 Mg Cap) 200 mg PO SOL Stop: 09/02/25 20:59 Last Admin: 08/05/25 21:03 Dose: 200 mg Documented By: Admin: 08/04/25 20:01 Dose: 200 mg Documented By: Admin: 08/03/25 20:09 Dose: 200 mg Documented By: HAILY Ceftriaxone Sodium (Rocephin) 1,000 mg in 50 mls @ 100 mls/hr IV Q24H SOL Stop: 08/07/25 10:29 Last Infusion: 08/06/25 11:14 Dose: Infused Documented By: Admin: 08/06/25 10:24 Dose: 100 mls/hr Documented By: Infusion: 08/05/25 10:50 Dose: Infused Documented By: Infusion: 08/05/25 10:23 Dose: 100 mls/hr Documented By: Infusion: 08/05/25 10:15 Dose: 0 mls/hr Documented By: Admin: 08/05/25 10:11 Dose: 100 mls/hr Documented By: VERONIQUE Levothyroxine Sodium (Levothyroxine Sodium 100 Mcg Tablet) 100 mcg PO DAILYBB SOL Stop: 09/03/25 06:29 Last Admin: 08/06/25 06:24 Dose: 100 mcg Documented By: KMMartha Admin: 08/05/25 06:08 Dose: 100 mcg Documented By: Admin: 08/04/25 05:42 Dose: 100 mcg Documented By: HAILY Melatonin (Melatonin 3 Mg Tab) 9 mg PO HS PRN PRN Reason: Sleep Stop: 09/02/25 15:33 Last Admin: 08/03/25 20:19 Dose: 9 mg Documented By: HAILY Memantine (Memantine Hcl 10 Mg Tab) 10 mg PO HS SOL Stop: 09/02/25 20:59 Last Admin: 08/05/25 21:02 Dose: 10 mg Documented By: Admin: 08/04/25 20:01 Dose: 10 mg Documented By: Admin: 08/03/25 20:08 Dose: 10 mg Documented By: HAILY Metoprolol Succinate (Metoprolol Succ 50mg Ext Rel Tab) 50 mg PO BID SOL Stop: 09/02/25 20:59 Last Admin: 08/06/25 08:40 Dose: 50 mg Documented By: Admin: 08/05/25 21:04 Dose: 50 mg Documented By: Admin: 08/05/25 08:21 Dose: 50 mg Documented By: Admin: 08/04/25 20:01 Dose: 50 mg Documented By: Admin: 08/04/25 09:42 Dose: 50 mg Documented By: Admin: 08/03/25 20:10 Dose: 50 mg Documented By: HAILY Miscellaneous (Remove Lidoderm Patch) 1 each N/A DAILY@2100 [facility] Stop: 09/02/25 20:59 Last Admin: 08/05/25 21:06 Dose: 1 each Documented By: Admin: 08/04/25 20:01 Dose: 1 each Documented By: Admin: 08/03/25 20:10 Dose: 1 each Documented By: HAILY Multivitamins (Multivitamin Tab) 1 tab PO QAM SOL Stop: 09/03/25 08:59 Last Admin: 08/06/25 08:39 Dose: 1 tab Documented By: Admin: 08/05/25 08:20 Dose: 1 tab Documented By: Admin: 08/04/25 09:41 Dose: 1 tab Documented By: ROMERO Simvastatin (Simvastatin 20 Mg Tab) 20 mg PO HS SOL Stop: 09/02/25 20:59 Last Admin: 08/05/25 21:04 Dose: 20 mg Documented By: Admin: 08/04/25 20:01 Dose: 20 mg Documented By: Admin: 08/03/25 20:09 Dose: 20 mg Documented By: HAILY Trazodone HCl (Trazodone Hcl 100 Mg Tab) 100 mg PO QPM SOL Stop: 09/02/25 20:59 Last Admin: 08/05/25 21:04 Dose: 100 mg Documented By: Admin: 08/04/25 20:01 Dose: 100 mg Documented By: Admin: 08/03/25 20:10 Dose: 100 mg Documented By: HAILY Vitamin D (Cholecalciferol 25 Mcg (1000 Units) Tab) 25 mcg PO QAM SOL Stop: 09/03/25 08:59 Last Admin: 08/06/25 08:39 Dose: 25 mcg Documented By: Admin: 08/05/25 08:21 Dose: 25 mcg Documented By: Admin: 08/04/25 09:41 Dose: 25 mcg Documented By: ROMERO Discontinued Medications Acetaminophen (Acetaminophen 500 Mg Tab) 1,000 mg PO NOW STA Stop: 08/03/25 13:33 Last Admin: 08/03/25 14:07 Dose: 1,000 mg Documented By: ANT Diphtheria/Pertussis/Tetanus Vacc (Diphther/Tetan/Pertus Vaccine (Tdap, Adol/Adult) 0.5ml) 0.5 ml IM .ONCE ONE Stop: 08/03/25 14:01 Last Admin: 08/03/25 14:07 Dose: 0.5 ml Documented By: ANT Ibuprofen (Ibuprofen 200 Mg Tab) 400 mg PO NOW STA Stop: 08/03/25 13:33 Last Admin: 08/03/25 14:07 Dose: 400 mg Documented By: ANT Insulin Aspart (Insulin Aspart Per Unit Charge) 0 units SC ACHS SOL Stop: 09/02/25 16:29 Last Admin: 08/03/25 17:03 Dose: Not Given Documented By: ROMERO Ioversol (Optiray 320 100ml) 93 ml IV ONCE ONE Stop: 08/03/25 12:52 Last Admin: 08/03/25 12:52 Dose: 93 ml Documented By: RENAN Lidocaine (Lidocaine 5% 1 Patch) 1 patch TD NOW STA Stop: 08/03/25 13:33 Last Admin: 08/03/25 14:07 Dose: 1 patch Documented By: ANT Discharge Plan Visit Data Chief Complaint: Fall Stated Complaint: FELL TWICE THIS WEEKEND ED Provider: Melvin Benton Discharge Problem: Frequent falls, Chronic anticoagulation, Multiple abrasions Patient Disposition: Admitted As Inpatient Condition: Fair Discharge Instructions Interventions: ED Discharge Assessment Last Done: 08/03/25 14:58
[2025-08-03] MEDS: OPTIRAY 320 100ml IV ONE (12:52)
[2025-08-03 12:56] LABS: Hematocrit (blood only) 47.4 % (37.0-47.0); Hemoglobin 15.1 g/dl (12.0-16.0); Immature Granulocytes # (auto) 0.01 K/uL (0.01-0.20); Immature Granulocytes % (auto) 0.1 %; Mean Corpuscular Hemoglobin 29.2 pg (25.0-34.0); Mean Corpuscular Volume 91.7 fL (80.0-100.0); Platelet Count 208 K/uL (130-400); RDW Standard Deviation 48.1 fL (36.4-46.3); Red Blood Count 5.17 M/uL (4.20-5.40); White Blood Count 7.38 K/ul (4.8-10.8)
--- NOTE | 2025-08-03 13:11 | CT Scan Report ---
HISTORY: Trauma TECHNIQUE: CT of the head without contrast. Images are presented in axial, sagittal, and coronal reformats. COMPARISON: Head CT dated 11/19/2023. FINDINGS: No evidence of intracranial hemorrhage, abnormal extra axial fluid collection, mass effect, or midline shift. Mild volume loss and chronic microvascular ischemic changes.Ventricular caliber is appropriate. Fourth ventricle is midline. Basal cisterns are patent.Bhatia-white differentiation is maintained. Globes and orbits are unremarkable.Soft tissues about the skull base and scalp are unremarkable.Paranasal sinuses and mastoid air cells are clear. No calvarial fracture. IMPRESSION: * No acute intracranial findings. * Mild volume loss and chronic microvascular ischemic changes. Electronically signed by Tello Najera 08-03-2025 13:11 PM
[2025-08-03 13:13] LABS: Anion Gap 6 (3-11); Blood Urea Nitrogen 18 mg/dl (6-23); Calcium 9.2 mg/dl (8.6-10.3); Carbon Dioxide 27 mmol/L (21-32); Chloride 105 mmol/L (98-107); Glucose 111 mg/dl (70-99(Fasting)); Potassium 3.9 mmol/L (3.5-5.1); Sodium 138 mmol/L (136-145)
[2025-08-03 13:15] LABS: Alanine Aminotransferase < 3 U/L (7-52); Albumin Globulin Ratio 1.2 (0.9-2); Albumin Level 3.9 gm/dl (3.4-5.0); Alkaline Phosphatase 71 U/L (34-104); Bilirubin,Total 1.0 mg/dl (0.2-1.0); Globulin 3.2 gm/dl (2.5-4.0); Lipase 34 U/L (11-82); Total Protein 7.1 gm/dl (6.0-8.3)
--- NOTE | 2025-08-03 13:15 | CT Scan Report ---
HISTORY: Trauma TECHNIQUE: CT imaging of the cervical spine without IV contrast. Images are presented in axial, sagittal, coronal reformats. COMPARISON: Cervical spine CT dated 06/18/2018. FINDINGS: Mild grade 1 anterolisthesis of C3 on C4 measures 0.2 cm and is stable. Cervical spine alignment is otherwise maintained.Vertebral body heights are preserved without compression deformity.No acute fractures identified. Severe multilevel degenerative disc disease. Partial osseous fusion across the C5-6 intervertebral disc space. Posteriorly directed disc osteophyte complex resulting in mild to moderate central canal stenosis at C6-7. Mild central canal stenosis at other levels. Severe neuroforaminal stenosis at C4-5. Multilevel neural foraminal stenosis is related to uncovertebral and facet arthrosis. No prevertebral edema or hematoma.Atherosclerotic vascular calcifications at the carotid bifurcations.Parenchymal scarring at the lung apices. Benign calcified granuloma at the left lung apex. IMPRESSION: * No acute cervical spine fractures identified. * Severe multilevel degenerative spondylosis of the cervical spine with multilevel central canal and neuroforaminal stenosis. * Additional chronic and/or incidental findings as above. Electronically signed by Tello Najera 08-03-2025 13:14 PM
--- NOTE | 2025-08-03 13:19 | CT Scan Report ---
HISTORY: Trauma TECHNIQUE: CT imaging of the chest was performed with IV contrast. Images are presented in axial, sagittal, and coronal reformats. COMPARISON: Chest CT dated 11/19/2023. FINDINGS: Lungs: Mild biapical pleural thickening and scarring. There is no pneumothorax or pleural effusion. Central tracheobronchial tree is patent. Heart/Mediastinum: Mild cardiomegaly. No pericardial effusion. Thoracic esophagus is unremarkable. No suspicious mediastinal or hilar lymph nodes. Coronary artery calcifications are not present. Left subclavian approach pacer with right atrial and ventricular leads. Vasculature: Mild atherosclerotic vascular disease of the aorta and arch vessels. No thoracic aortic aneurysm. Main pulmonary artery is normal in caliber. Soft Tissues: Soft tissues of the chest wall are unremarkable. Upper Abdomen: Unremarkable. Bones: Moderate degenerative changes of the thoracic spine.No acute fractures identified. IMPRESSION: * No CT evidence of acute trauma in the chest. * Cardiomegaly. * Chronic and/or incidental findings as detailed above. Electronically signed by Tello Najera 08-03-2025 13:18 PM
--- NOTE | 2025-08-03 13:23 | CT Scan Report ---
HISTORY: Trauma. TECHNIQUE: Helical CT imaging of the abdomen and pelvis was performed with IV contrast. Images are presented in axial, sagittal, and coronal reformats. COMPARISON: CT of the chest from the same day. CT of the abdomen pelvis dated 11/19/2023. FINDINGS: Lung Bases/Inferior Mediastinum: Cardiomegaly. Coronary artery calcifications. Partially imaged cardiac pacer leads. Lung bases are clear. Liver: Unremarkable Gallbladder: Distended gallbladder. No wall thickening or Pericholecystic fluid. No visible gallstones. No intra or extrahepatic biliary ductal dilation. Spleen: Unremarkable Adrenals: Unremarkable Pancreas: Unremarkable Kidneys: Unremarkable Stomach/Bowel: Distal esophagus and stomach appear unremarkable. The small bowel loops are normal in caliber. Moderate formed stool in the colon. Mild colonic diverticulosis. No evidence of acute diverticulitis. Lymph nodes: Unremarkable Vasculature: No abdominal aortic aneurysm. Mild atherosclerotic vascular disease. Pelvis: Urinary bladder is unremarkable. The uterus is absent. No free pelvic fluid. Soft Tissues: Unremarkable Bones: Moderate degenerative disc disease. Severe lower lumbar facet arthrosis.Mild to moderate osteoarthritis of the hips and pelvis. S-shaped lumbar curvature. IMPRESSION: * No CT evidence of acute trauma in the abdomen or pelvis. * Mildly distended gallbladder. No findings to suggest acute cholecystitis. * Additional chronic and/or incidental findings as detailed above. Electronically signed by Tello Najera 08-03-2025 13:22 PM
[2025-08-03 13:25] LABS: INR 1.1 (0.9-1.1); Partial Thromboplastin Time 29 Seconds (21-31); Prothrombin Time 11.7 Seconds (9.0-12.0)
--- NOTE | 2025-08-03 13:29 | XRay Report ---
HISTORY: Left knee pain. TECHNIQUE: Left knee, 4 views. COMPARISON: None. FINDINGS: Left knee arthroplasty in appropriate alignment.No periprosthetic lucency or fractures identified. No significant joint effusion. Atherosclerotic vascular disease. The surrounding soft tissues are otherwise unremarkable. IMPRESSION: * No acute osseous abnormality. * Left knee arthroplasty without obvious complication. Electronically signed by Tello Najera 08-03-2025 13:28 PM
--- NOTE | 2025-08-03 13:30 | XRay Report ---
HISTORY: Left hand pain. TECHNIQUE: Left hand, 3 views. COMPARISON: None. FINDINGS: No acute fracture or dislocation. Alignment is maintained. Mild atherosclerotic vascular disease. Mild to moderate degenerative changes. The surrounding soft tissues are otherwise unremarkable. IMPRESSION: * No acute osseous abnormality. * Mild to moderate degenerative changes of the hand and wrist. Electronically signed by Tello Najera 08-03-2025 13:29 PM
--- NOTE | 2025-08-03 13:31 | XRay Report ---
HISTORY: Trauma TECHNIQUE: Portable AP radiograph of the chest. COMPARISON: None. FINDINGS: Left subclavian approach pacer/AICD with right atrial and ventricular leads. No focal lung consolidation. No pneumothorax or pleural effusion. Top normal heart size. Left-sided aortic arch. Midline trachea. Degenerative changes of the shoulders and spine. Included upper abdomen is unremarkable. IMPRESSION: No acute cardiopulmonary findings. Electronically signed by Tello Najera 08-03-2025 13:30 PM
[2025-08-03] MEDS: ACETAMINOPHEN 500 MG TAB PO STA (14:07)
[2025-08-03] MEDS: LIDOCAINE 5% 1 PATCH TD STA (14:07)
[2025-08-03] MEDS: IBUPROFEN 200 MG TAB PO STA (14:07)
[2025-08-03] MEDS: DIPHTHER/TETAN/PERTUS Vaccine (Tdap, Adol/Adult) 0.5mL IM ONE (14:07)
--- NOTE | 2025-08-03 14:26 | History & Physical Report ---
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 Mcgarry with [facility] as outpatient, will need follow up appointment with them after discharge - Will continue carbidopa-levodopa - may need dose adjustment - Promote good sleep hygiene with dementia, reorient the patient as necessary, no need for 1:1 at this time - Fall precautions - Cont donepezil, dose now, gabapentin HS, memantine 10 mg HS, - Speech therapy consult Atrial Fibrillation Hx vtach s/p ACID in situ HTN HLD - Cont chronic anticoagulation with eliquis 2.5 mg BID renally reduced, metoprolol succ 50 mg BID, simvastatin 20 mg HS DM II - ISS with accuchecks achs - A1C with am labs Hypothyroidism - Check TSH with reflex T 4 now, cont synthroid 100 mcg daily Depression Anxiety - Home meds: duloxetine, gabapentin, trazodone 100 mg HS DVT ppx: teds, scds Lines: PIV x 1 FEN/GI: HH/DM diet, easy to chew CODE: DNR/DNI - discussed with pt and sonLevon at bedside Dispo: From home, likely to remain in the hospital x 1-2 days I spent a total of 77 minutes with greater than 50% of that time face to face with the patient, personally reviewing all current laboratories, imaging studies, past medication reconciliation, outpatient chart review, and discussion with specialists to collaborate care for the patient excluding time spent in the performance of separately billed services or time spent by another provider/QHP. Please see attending documentation for corrections and/or additions. History of Present Illness Chief Complaint: Fall Primary Care Provider: Vandana Walker MD This is an 85 yo F with PMHx of persistent atrial fibrillation, history of ventricular fibrillation, history of cardiac arrest s/p AICD implant, history of alcohol induced cardiomyopathy resolved, normal coronaries by cardiac cath in December 2014, hypertension, hyperlipidemia , hypothyroidism, history of GI ble ed with peptic ulcer, osteoarthritis, depression and anxiety who presents to the hospital after sustaining multiple falls at home. She has recently been seen by neurologist in January 2025 diagnosed her with parkinsonism and early stage dementia, possible Lewy body dementia. She presents with her son into the room today. Patient is unable to answer simple questions such as date, place and introduces her son seated at bedside incorrectly as her other son Ross where the son here during today's visit is Levon. He states that she fell on Monday which was unwitnessed, in the afternoon when he was off work, found her sitting on the floor, thinks that she tripped over a small rug in the adjacent hallway. Patient could not recall how this event happened, she denied any pain at that time and therefore did not seek medical care. She does not use a walker or a cane at baseline. Again today while he was in the home with her, she yelled and he found her seated on the ground next to her bed where she had sustained an injury to her left eyebrow, left wrist, left elbow and left knee. She also reports having pain between her shoulder blades and feels sore. Son is concerned that this is progressing and is open to discussion about correction placement. They are both in agreement for PT/OT evaluations. After her last hospital stay about 1 year ago she was in [facility] for about 3 weeks. Imaging studies reviewed, nuno scan CT was obtained and is negative for acute fractures, trauma or injury. Allergies Allergy/AdvReac Type Severity Reaction Status Date / Time clarithromycin Allergy Unknown Unknown Verified 08/03/25 14:51 codeine Allergy Unknown Unknown Verified 08/03/25 14:51 Corticosteroids AdvReac Intermediate BODY Verified 08/03/25 14:51 (Glucocorticoids) SWELLS UP morphine AdvReac Intermediate CONFUSION Verified 08/03/25 14:51 Home Medications Medication Instructions Recorded Confirmed Type cholecalciferol (vitamin D3) 25 1,000 unit PO QAM 10/02/19 08/03/25 History mcg (1,000 unit) chewable tablet (Vitamin D3) gabapentin 100 mg capsule 200 mg PO HS 10/02/19 08/03/25 History metoprolol succinate 50 mg 50 mg PO BID 10/02/19 08/03/25 History tablet,extended release 24 hr multivitamin with minerals 1 tab PO QAM 10/02/19 08/03/25 History (Hair,Skin and Nails tablet) simvastatin 20 mg tablet 20 mg PO HS 10/02/19 08/03/25 History cyanocobalamin (vitamin B-12) 1,000 mcg PO QAM 12/24/19 08/03/25 History 1,000 mcg tablet (Vitamin B-12) melatonin 5 mg capsule 10 mg PO HS PRN Sleep 12/24/19 08/03/25 History donepezil 10 mg tablet 10 mg PO QAM 03/14/23 08/03/25 History levothyroxine 100 mcg tablet 100 mcg PO DAILY 03/14/23 08/03/25 History memantine 10 mg tablet 10 mg PO HS 03/14/23 08/03/25 History trazodone 100 mg tablet 100 mg PO QPM 03/14/23 08/03/25 History duloxetine 20 mg capsule,delayed 20 mg PO QAM 05/19/23 08/03/25 History release loratadine 10 mg tablet (Allergy 10 mg PO DAILY PRN allergies 05/19/23 08/03/25 History Relief (loratadine)) carbidopa 25 mg-levodopa 100 mg 1 tab PO TID #90 tabs 02/10/25 08/03/25 Rx tablet apixaban 5 mg tablet (Eliquis) 2.5 mg (1/2 x 5 mg) PO BID #180 04/08/25 08/03/25 Rx tabs Past Med/Surg History Problem List (Updated 08/03/25 @ 14:21 by Gisela Duong PA-C) Dementia Frequent falls Parkinsonism Chronic anticoagulation Abdominal pain, lower (Acute) COVID-19 virus infection (Acute) Acute alteration in mental status (Acute) Nonischemic cardiomyopathy Atrial fibrillation, permanent Colon cancer screening Generalized weakness (Acute) Confusion (Acute) Fall (Acute) Abnormal EKG (Acute) DVT prophylaxis Abnormal CT of the abdomen Encounter for pre-operative examination Diarrhea Hypokalemia Discharge planning issues Cirrhosis of liver noted on CT 10/02/19 Hx of cardiac cath (Chronic) "2004-demonstrated normal coronary arteries" S/P right knee arthroscopy (Chronic) S/P KATHLEEN-BSO (Chronic) History of cataract surgery (Chronic) RIGHT AND LEFT Hx of appendectomy (Chronic) History of total left knee replacement (Chronic) Sudden cardiac (Chronic) REASON THAT SHE HAS ICD History of total right knee replacement (Chronic) DM type 2 (diabetes mellitus, type 2) (Chronic) Dyslipidemia (Chronic) Hypertension (Chronic) ICD (implantable cardioverter-defibrillator) in place (Chronic) [employer] initially implanted in 2004. Generator change-out 03/11/24 Ventricular tachycardia (Chronic) HAD CARDIAC ARREST AND THEN ICD PLACED Osteoarthritis (Chronic) Anxiety (Chronic) Depression (Chronic) Hypothyroidism (Chronic) Medical History (Updated 08/03/25 @ 14:21 by Gisela Duong PA-C) care home current use of anticoagulants with INR goal of 2.0-3.0 AICD at end of battery life Surgical History Hx of colonoscopy Family History Father Diabetes Mother Diabetes Social History Smoking Status: Never smoker Second Hand Exposure: No; Do You Dip or Chew Tobacco: No; Tobacco Cessation Education Requested by Patient: No Hx Alcohol Use: No Hx Substance Use: No Preferred Language: Honduran Communication Ability: Effective Laundry Routeman Required: No Beliefs That Will Affect Care: None marital status: / Current Living Situation: Alone and Other Current Living Situation Comment: Son comes frequently to help her. Other Information That Helps Us Care for You: No Feels Safe at Home: Yes Safety Concerns: Feels Safe At This Time Assistive Devices: Denture - Upper and Glasses Review of Systems Review of Systems: Constitutional: No fever, sweats or chills Eyes: No diplopia, no worsening or blurred vision ENT: normal hearing, no trouble swallowing Respiratory: No cough, sputum, dyspnea at rest or on exertion Cardiovascular: No chest pain, tightness or palpitations Abdomen: No pain, nausea, vomiting, diarrhea or constipation Musculoskeletal: + pain between shoulder blades, otherwise no joint pain, calf pain, swelling Neurologic: + falls, + weakness, numbness/tingling, no balance problems Psychiatric: hx of anxiety and depression Skin: No rash or itch, few skin abrasions over left wrist, hand left knee Physical Exam Physical Exam: General: awake, alert, no apparent distress, elderly white female Head: Normocephalic, small area of abrasion over the left eye orbit s/p fall, no ecchymosis ENT: PERRL, EOMI, no pharyngeal exudate, mucous membranes moist Chest: Clear to auscultation, on room air, no adventitious breath sounds Cardiac: Regular rate and rhythm, no murmur, no JVD, normal peripheral pulses, good capillary refill Abdominal: NABS x 4 quadrants, soft, nondistended, nontender to palpation, no rebound or guarding Extremities: left wrist, left elbow and left knee with small abrasion, no lacerations, no ecchymosis, no peripheral edema or erythema, calfs nontender to palpation Psych: Normal mood and affect Neuro: AA, not oriented to family at bedside, place or time. strength intact bilaterally and rated 5/5, no motor deficits, speech is clear, no peripheral sensory deficits Results & Data Results & Data Vital Signs (Past 12 Hours) Vital Signs Temp Pulse Pulse Resp BP BP Pulse Ox 08/03/25 12:36 74 17 98 08/03/25 12:11 66 08/03/25 12:05 60 16 98 08/03/25 12:05 36.5 C 69 14 112/83 98 08/03/25 11:27 36.4 C L 70 20 107/71 93 O2 Del Method 08/03/25 12:36 08/03/25 12:11 08/03/25 12:05 Room Air 08/03/25 12:05 Room Air 08/03/25 11:27 Room Air Laboratory Results 08/03/25 08/03/25 12:32 12:25 WBC 7.38 RBC 5.17 Hgb 15.1 POC Hgb 16.3 H Hct 47.4 H POC Hct 48 H MCV 91.7 MCH 29.2 MCHC 31.9 L RDW Std Deviation 48.1 H RDW Coeff of Lisa 14.2 Plt Count 208 MPV 11.8 Immature Gran % (Auto) 0.1 Neut % (Auto) 68.3 Lymph % (Auto) 21.8 Mcduffie % (Auto) 8.4 Eos % (Auto) 0.9 Baso % (Auto) 0.5 Neut # (Auto) 5.03 Lymph # (Auto) 1.61 Mcduffie # (Auto) 0.62 H Eos # (Auto) 0.07 Baso # (Auto) 0.04 Immature Gran # (Auto) 0.01 PT 11.7 INR 1.1 APTT 29 PTT Ratio 1.1 POC Sodium 140 Sodium 138 POC Potassium 3.8 Potassium 3.9 POC Chloride 105 Chloride 105 Carbon Dioxide 27 POC Total CO2 26 Anion Gap 6 POC Anion Gap 15.0 L POC BUN 20 H BUN 18 Creatinine 0.91 POC Creatinine 1.0 Est Cr Clr Drug Dosing Not Reportable eGFR 62.60 BUN/Creatinine Ratio 19.8 Glucose 111 H POC Glucose (other) 114 H Calcium 9.2 POC Ioniz Calcium Myrtle 1.13 Total Bilirubin 1.0 AST 30 ALT < 3 L Alkaline Phosphatase 71 Total Protein 7.1 Albumin 3.9 Globulin 3.2 Albumin/Globulin Ratio 1.2 Lipase 34 Diagnostic Findings Abdomen/Pelvis CT 08/03/25 11:43 HISTORY: Trauma. TECHNIQUE: Helical CT imaging of the abdomen and pelvis was performed with IV contrast. Images are presented in axial, sagittal, and coronal reformats. COMPARISON: CT of the chest from the same day. CT of the abdomen pelvis dated 11/19/2023. FINDINGS: Lung Bases/Inferior Mediastinum: Cardiomegaly. Coronary artery calcifications. Partially imaged cardiac pacer leads. Lung bases are clear. Liver: Unremarkable Gallbladder: Distended gallbladder. No wall thickening or Pericholecystic fluid. No visible gallstones. No intra or extrahepatic biliary ductal dilation. Spleen: Unremarkable Adrenals: Unremarkable Pancreas: Unremarkable Kidneys: Unremarkable Stomach/Bowel: Distal esophagus and stomach appear unremarkable. The small bowel loops are normal in caliber. Moderate formed stool in the colon. Mild colonic diverticulosis. No evidence of acute diverticulitis. Lymph nodes: Unremarkable Vasculature: No abdominal aortic aneurysm. Mild atherosclerotic vascular disease. Pelvis: Urinary bladder is unremarkable. The uterus is absent. No free pelvic fluid. Soft Tissues: Unremarkable Bones: Moderate degenerative disc disease. Severe lower lumbar facet arthrosis.Mild to moderate osteoarthritis of the hips and pelvis. S-shaped lumbar curvature. IMPRESSION: * No CT evidence of acute trauma in the abdomen or pelvis. * Mildly distended gallbladder. No findings to suggest acute cholecystitis. * Additional chronic and/or incidental findings as detailed above. Electronically signed by Tello Najera 08-03-2025 13:[address] 08/03/25 11:43 HISTORY: Trauma TECHNIQUE: CT imaging of the cervical spine without IV contrast. Images are presented in axial, sagittal, coronal reformats. COMPARISON: Cervical spine CT dated 06/18/2018. FINDINGS: Mild grade 1 anterolisthesis of C3 on C4 measures 0.2 cm and is stable. Cervical spine alignment is otherwise maintained.Vertebral body heights are preserved without compression deformity.No acute fractures identified. Severe multilevel degenerative disc disease. Partial osseous fusion across the C5-6 intervertebral disc space. Posteriorly directed disc osteophyte complex resulting in mild to moderate central canal stenosis at C6-7. Mild central canal stenosis at other levels. Severe neuroforaminal stenosis at C4-5. Multilevel neural foraminal stenosis is related to uncovertebral and facet arthrosis. No prevertebral edema or hematoma.Atherosclerotic vascular calcifications at the carotid bifurcations.Parenchymal scarring at the lung apices. Benign calcified granuloma at the left lung apex. IMPRESSION: * No acute cervical spine fractures identified. * Severe multilevel degenerative spondylosis of the cervical spine with multilevel central canal and neuroforaminal stenosis. * Additional chronic and/or incidental findings as above. Electronically signed by Tello Najera 08-03-2025 13:[address] 08/03/25 11:43 HISTORY: Trauma TECHNIQUE: CT imaging of the chest was performed with IV contrast. Images are presented in axial, sagittal, and coronal reformats. COMPARISON: Chest CT dated 11/19/2023. FINDINGS: Lungs: Mild biapical pleural thickening and scarring. There is no pneumothorax or pleural effusion. Central tracheobronchial tree is patent. Heart/Mediastinum: Mild cardiomegaly. No pericardial effusion. Thoracic esophagus is unremarkable. No suspicious mediastinal or hilar lymph nodes. Coronary artery calcifications are not present. Left subclavian approach pacer with right atrial and ventricular leads. Vasculature: Mild atherosclerotic vascular disease of the aorta and arch vessels. No thoracic aortic aneurysm. Main pulmonary artery is normal in caliber. Soft Tissues: Soft tissues of the chest wall are unremarkable. Upper Abdomen: Unremarkable. Bones: Moderate degenerative changes of the thoracic spine.No acute fractures identified. IMPRESSION: * No CT evidence of acute trauma in the chest. * Cardiomegaly. * Chronic and/or incidental findings as detailed above. Electronically signed by Tello Najera 08-03-2025 13:18 PM Chest X-Ray 08/03/25 11:43 HISTORY: Trauma TECHNIQUE: Portable AP radiograph of the chest. COMPARISON: None. FINDINGS: Left subclavian approach pacer/AICD with right atrial and ventricular leads. No focal lung consolidation. No pneumothorax or pleural effusion. Top normal heart size. Left-sided aortic arch. Midline trachea. Degenerative changes of the shoulders and spine. Included upper abdomen is unremarkable. IMPRESSION: No acute cardiopulmonary findings. Electronically signed by Tello Najera 08-03-2025 13:30 PM Hand X-Ray 08/03/25 11:43 HISTORY: Left hand pain. TECHNIQUE: Left hand, 3 views. COMPARISON: None. FINDINGS: No acute fracture or dislocation. Alignment is maintained. Mild atherosclerotic vascular disease. Mild to moderate degenerative changes. The surrounding soft tissues are otherwise unremarkable. IMPRESSION: * No acute osseous abnormality. * Mild to moderate degenerative changes of the hand and wrist. Electronically signed by Tello Najera 08-03-2025 13:[address] 08/03/25 11:43 HISTORY: Trauma TECHNIQUE: CT of the head without contrast. Images are presented in axial, sagittal, and coronal reformats. COMPARISON: Head CT dated 11/19/2023. FINDINGS: No evidence of intracranial hemorrhage, abnormal extra axial fluid collection, mass effect, or midline shift. Mild volume loss and chronic microvascular ischemic changes.Ventricular caliber is appropriate. Fourth ventricle is midline. Basal cisterns are patent.Bhatia-white differentiation is maintained. Globes and orbits are unremarkable.Soft tissues about the skull base and scalp are unremarkable.Paranasal sinuses and mastoid air cells are clear. No calvarial fracture. IMPRESSION: * No acute intracranial findings. * Mild volume loss and chronic microvascular ischemic changes. Electronically signed by Tello Najera 08-03-2025 13:11 PM Knee X-Ray 08/03/25 11:43 HISTORY: Left knee pain. TECHNIQUE: Left knee, 4 views. COMPARISON: None. FINDINGS: Left knee arthroplasty in appropriate alignment.No periprosthetic lucency or fractures identified. No significant joint effusion. Atherosclerotic vascular disease. The surrounding soft tissues are otherwise unremarkable. IMPRESSION: * No acute osseous abnormality. * Left knee arthroplasty without obvious complication. Electronically signed by Tello Najera 08-03-2025 13:28 PM Supervising Physician Co-Signing Physician Notes Attending addendum: Patient was seen and examined in the emergency room in presence of the son She is an 83-year-old with significant past medical history of dementia,atrial fibrillation,Parkinson disease, ICD status and other medical conditions as mentioned in H&P was brought in with fall Chief complaint show some pain in the back but otherwise denies any significant symptoms She did not have any fracture of any of the bones and she was admitted to medical floor to have physical therapy evaluation and will likely to need placement On examination Lying in bed without any apparent distress Afebrile and remains hemodynamically stable Chestclear to auscultate bilaterally HeartS1-S2 irregular Abdomenbenign Extremities- trace edema bilaterally [employer]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 Generally weak but no focal neurodeficit. Her admission labs, EKG and imaging studies reviewed Did not have any fracture on skeletal survey No significant trauma or pain following a fall with left knee bruising Will get PT OT evaluation for possible placement The son does not want her to be on insulin and does not believe that she has diabetes She lives alone and she cannot get out of the hospital bed by herself and recently that has been difficult as well Her other significant medical conditions remained stable as above Agree with assessment plan as outlined above by ARUNA Andres- [facility] take the full responsibility of care in the hospital Dr Hyacinth Rashid (2) Parkinsonism Parkinsonism type: unspecified Qualified Code(s): G20.C - Parkinsonism, unspe cified (8) Hypertension Hypertension type: unspecified Qualified Code(s): I10 - Essential (primary) hypertension
[2025-08-03 15:10] LABS: Thyroid Stimulating Hormone 1.821 uIu/ml (0.300-4.500)
[2025-08-03] MEDS ORDERED: ONDANSETRON INJ 2 MG/ML 2 ML VIAL IV PRN (15:55)
[2025-08-03] MEDS ORDERED: GLUCOSE 10 TAB/TUBE PO PRN (15:55)
[2025-08-03] MEDS ORDERED: CARBOHYDRATES FOR HYPOGLYCEMIA PO PRN (15:55)
[2025-08-03] MEDS ORDERED: GLUCOSE 40% GEL 15 GM TUBE PO PRN (15:55)
[2025-08-03] MEDS ORDERED: GLUCAGON FOR INJ 1 MG VIAL SQ PRN (15:55)
[2025-08-03] MEDS ORDERED: DEXTROSE 50% 50 ML SYRINGE IV PRN (15:55)
[2025-08-03] MEDS: DONEPEZIL HCL 10 MG TAB PO SCH (16:54)
[2025-08-03] MEDS: INSULIN ASPART PER UNIT CHARGE SC SCH (17:03)
[2025-08-03] MEDS: MEMANTINE HCL 10 MG TAB PO SCH (20:08)
[2025-08-03] MEDS: APIXABAN 2.5 MG TAB PO SCH (20:08)
[2025-08-03] MEDS: SIMVASTATIN 20 MG TAB PO SCH (20:09)
[2025-08-03] MEDS: GABAPENTIN 100 MG CAP PO SCH (20:09)
[2025-08-03] MEDS: CARBIDOPA/LEVODOPA 25/100MG TAB PO SCH (20:09)
[2025-08-03] MEDS: METOPROLOL SUCC 50MG EXT REL TAB PO SCH (20:10)
[2025-08-03] MEDS: REMOVE LIDODERM PATCH SCH (20:10)
[2025-08-03] MEDS: MELATONIN 3 MG TAB PO PRN (20:19)
[2025-08-03] MEDS ORDERED: ACETAMINOPHEN 325 MG TAB PO PRN (21:00)
[2025-08-04] MEDS: LEVOTHYROXINE SODIUM 100 MCG TABLET PO SCH (05:42)
[2025-08-04 06:04] LABS: Hematocrit (blood only) 38.6 % (37.0-47.0); Hemoglobin 13.1 g/dl (12.0-16.0); Mean Corpuscular Hemoglobin 30.4 pg (25.0-34.0); Mean Corpuscular Volume 89.6 fL (80.0-100.0); Platelet Count 167 K/uL (130-400); RDW Standard Deviation 46.2 fL (36.4-46.3); Red Blood Count 4.31 M/uL (4.20-5.40); White Blood Count 5.71 K/ul (4.8-10.8)
[2025-08-04 06:41] LABS: Anion Gap 4.0 (3-11); Blood Urea Nitrogen 17.0 mg/dl (6-23); Calcium 8.3 mg/dl (8.6-10.3); Carbon Dioxide 26.0 mmol/L (21-32); Chloride 108.0 mmol/L (98-107); Cholesterol 97.0 mg/dl (0-200); Creatinine Clr Calc Pharmacy 56.5 ml/min; Glucose 90.0 mg/dl (70-99(Fasting)); HDL Cholesterol 31.0 mg/dl; Potassium 3.6 mmol/L (3.5-5.1); Sodium 138.0 mmol/L (136-145); Triglycerides 92.0 mg/dl (0-150)
[2025-08-04 08:02] LABS: Hemoglobin A1C 5.7 % (4.5-5.6)
[2025-08-04] MEDS: CHOLECALCIFEROL 25 MCG (1000 UNITS) TAB PO SCH (09:41)
[2025-08-04] MEDS: MULTIVITAMIN TAB PO SCH (09:41)
[2025-08-04] MEDS: CYANOCOBALAMIN (B-12) 500 MCG TABLET PO SCH (09:41)
--- NOTE | 2025-08-04 14:06 | Hospitalist Progress Note ---
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 Mcgarry with [facility] Continue carbidopa-levodopa Reorient frequently to minimize delirium Continue donepezil, memantine Atrial Fibrillation Hx vtach s/p ACID in situ HTN HLD On chronic anticoagulation with Eliquis Continue metoprolol succinate 50 mg twice a day, simvastatin DM II HbA1c 5.7 - ISS with accuchecks achs Monitor blood glucose levels Hypothyroidism Normal TSH Continue levothyroxine 100 mcg daily Depression Anxiety Continue home medication duloxetine, gabapentin, trazodone 100 mg HS DVT Px: Eliquis CODE STATUS: DNR/DNI Disposition Case management to help with discharge planning Admission and Anticipated Discharge Date Admission Date: August 03, 2025 Subjective Patient is seen and examined at bedside Oriented to person and place during my encounter this morning Poor historian Admits to have some pain between her shoulders Denies any chest pain, dyspnea No other complaints today No distress on exam Review of Systems Review of Systems: All systems reviewed & are unremarkable except as noted in Subjective Physical Exam Physical Exam: Physical Exam: Vitals signs as noted above General Appearance:Moderately built and nourished, no apparent distress, elderly Head: normocephalic, + small left forehead laceration Eyes: normal inspection, EOMI Neck: supple, Trachea midline Respiratory/Chest: Normal breath sounds, CTA, No accessory muscle use Cardiovascular: S1, S2, No murmur Abdomen/GI:Soft, Non tender, Bowel sounds present Extremities/Musculoskeletal:normal inspection, 1+ LE edema Neurologic/Psych:AAOX2, grossly no focal neurological deficits Skin: normal color, warm,+ small abrasions on extremities Results & Data Results & Data Vital Signs (Past 12 Hours) Vital Signs Temp Pulse Resp BP BP Pulse Ox O2 Del Method 09/22/25 07:39 36.3 C L 67 18 116/75 95 Room Air 08/04/25 06:17 66 108/68 Laboratory Results Short CBC 08/04/25 Range/Units 05:25 WBC 5.71 (4.8-10.8) K/ul Hgb 13.1 (12.0-16.0) g/dl Hct 38.6 (37.0-47.0) % Plt Count 167 (130-400) K/uL BMP 08/04/25 05:25 Sodium 138 Potassium 3.6 Chloride 108 H Carbon Dioxide 26 BUN 17 Creatinine 0.80 Glucose 90 Calcium 8.3 L (2) Parkinsonism Parkinsonism type: unspecified Qualified Code(s): G20.C - Parkinsonism, unspecified (8) Hypertension Hypertension type: unspecified Qualified Code(s): I10 - Essential (primary) hypertension
[2025-08-05 06:32] LABS: Anion Gap 4.0 (3-11); Blood Urea Nitrogen 11.0 mg/dl (6-23); Calcium 8.2 mg/dl (8.6-10.3); Carbon Dioxide 29.0 mmol/L (21-32); Chloride 106.0 mmol/L (98-107); Creatinine Clr Calc Pharmacy 66.5 ml/min; Glucose 89.0 mg/dl (70-99(Fasting)); Potassium 3.7 mmol/L (3.5-5.1); Sodium 139.0 mmol/L (136-145)
[2025-08-05 06:42] LABS: Appearance Urine Clear (Clear); Bacteria Urine Automated None Seen (None Seen); Cast Urine Automated 0-2 /lpf (0-2); Glucose Urine UA Negative (Negative); RBC Urine Automated 0-2 /hpf (0-2)
[2025-08-05] MEDS: cefTRIAXone SODIUM 1,000 MG/50 ML BAG IV SCH (10:11)
--- NOTE | 2025-08-05 16:07 | Hospitalist Progress Note ---
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 Mcgarry with [facility] Continue carbidopa-levodopa Reorient frequently to minimize delirium Continue donepezil, memantine Plan to discharge to rehab facility when accepted Abnormal urinalysis--rule out UTI Urine culture pending Empirically on IV Rocephin Atrial Fibrillation Hx vtach s/p ACID in situ HTN HLD On chronic anticoagulation with Eliquis Continue metoprolol succinate 50 mg twice a day, simvastatin DM II HbA1c 5.7 - ISS with accuchecks achs Monitor blood glucose levels Hypothyroidism Normal TSH Continue levothyroxine 100 mcg daily Depression Anxiety Continue home medication duloxetine, gabapentin, trazodone 100 mg HS DVT Px: Eliquis CODE STATUS: DNR/DNI Disposition Case management to help with discharge planning Admission and Anticipated Discharge Date Admission Date: August 03, 2025 Subjective Patient is seen and examined at bedside Offers no new complaints today pain between her shoulders improved Denies any chest pain, dyspnea, dysuria, hematuria Review of Systems Review of Systems: All systems reviewed & are unremarkable except as noted in Subjective Physical Exam Physical Exam: Physical Exam: Vitals signs as noted above General Appearance:Moderately built and nourished, no apparent distress, elderly Head: normocephalic, + small left forehead laceration Eyes: normal inspection, EOMI Neck: supple, Trachea midline Respiratory/Chest: Normal breath sounds, CTA, No accessory muscle use Cardiovascular: S1, S2, No murmur Abdomen/GI:Soft, Non tender, Bowel sounds present Extremities/Musculoskeletal:normal inspection, 1+ LE edema Neurologic/Psych:AAOX2, grossly no focal neurological deficits Skin: normal color, warm,+ small abrasions on extremities Results & Data Results & Data Vital Signs (Past 12 Hours) Vital Signs Temp Pulse Resp BP Pulse Ox O2 Del Method 08/05/25 15:39 36.6 C 67 18 118/65 96 Room Air 08/05/25 08:19 73 127/77 94 Room Air 08/05/25 07:23 36.8 C 70 16 115/79 92 Room Air Laboratory Results [facility] 08/05/25 05:37 Sodium 139 Potassium 3.7 Chloride 106 Carbon Dioxide 29 BUN 11 Creatinine 0.68 Glucose 89 Calcium 8.2 L Urine 08/05/25 Range/Units 06:10 Urine Color Yellow Urine Appearance Clear (Clear) Urine pH 5.5 (4.5-7.5) Ur Specific [place] 1.016 (1.000-1.030) Urine Protein Negative (Negative) Urine Glucose (UA) Negative (Negative) (2) Parkinsonism Parkinsonism type: unspecified Qualified Code(s): G20.C - Parkinsonism, unspecified (8) Hypertension Hypertension type: unspecified Qualified Code(s): I10 - Essential (primary) hypertension
[2025-08-06 06:19] LABS: Hematocrit (blood only) 41.3 % (37.0-47.0); Hemoglobin 13.8 g/dl (12.0-16.0); Mean Corpuscular Hemoglobin 30.2 pg (25.0-34.0); Mean Corpuscular Volume 90.4 fL (80.0-100.0); Platelet Count 173 K/uL (130-400); RDW Standard Deviation 46.7 fL (36.4-46.3); Red Blood Count 4.57 M/uL (4.20-5.40); White Blood Count 5.52 K/ul (4.8-10.8)
[2025-08-06 06:44] LABS: Anion Gap 4.0 (3-11); Blood Urea Nitrogen 8.0 mg/dl (6-23); Calcium 8.4 mg/dl (8.6-10.3); Carbon Dioxide 29.0 mmol/L (21-32); Chloride 106.0 mmol/L (98-107); Creatinine Clr Calc Pharmacy 68.5 ml/min; Glucose 87.0 mg/dl (70-99(Fasting)); Potassium 3.6 mmol/L (3.5-5.1); Sodium 139.0 mmol/L (136-145)
--- NOTE | 2025-08-06 18:00 | Hospitalist Progress Note ---
Date of Service August 06, 2025 Assessment & Plan (1) Frequent falls: (2) Parkinsonism: (3) Dementia: (4) Chronic anticoagulation: (5) Atrial fibrillation, permanent: (6) Ventricular tachycardia: (7) ICD (implantable cardioverter-defibrillator) in place: (8) Hypertension: (9) Dyslipidemia: (10) DM type 2 (diabetes mellitus, type 2): (11) Hypothyroidism: (12) Depression: (13) Anxiety: (14) Osteoarthritis: Plan This is an 85 yo F with PMHx of persistent atrial fibrillation, history of ventricular fibrillation, history of cardiac arrest s/p AICD implant, history of alcohol induced cardiomyopathy resolved, normal coronaries by cardiac cath in December 2014, hypertension, hyperlipidemia , hypothyroidism, history of GI bleed with peptic ulcer, osteoarthritis, depression and anxiety who presents to the hospital after sustaining multiple falls at home. 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 other cognitive decline Plan: -Continue PT OT, fall precautions -Case management to help with discharge planning -Follows with neurology Dr. Mcgarry with [facility] -Continue carbidopa-levodopa -Reorient frequently to minimize delirium -Continue donepezil, memantine -plan for discharge to SNF tomorrow Abnormal urinalysis -urine culture negative -stop ceftriaxone Atrial Fibrillation Hx vtach s/p ACID in situ HTN HLD -On chronic anticoagulation with Eliquis -Continue metoprolol succinate 50 mg twice a day, simvastatin DM II -HbA1c 5.7 - ISS with accuchecks [facility] Hypothyroidism -Normal TSH -Continue levothyroxine 100 mcg daily Depression Anxiety -Continue home medication duloxetine, gabapentin, trazodone 100 mg HS I spent a total of 40 minutes in direct patient care, including [id number] time with the patient and/or family, reviewing medical records, ordering and reviewing diagnostic tests, and coordinating care with other healthcare providers. This time includes: history taking, physical examination, medical decision making, counseling, ECG interpretation, imaging interpretation, lab interpretation, orders, and education, excluding time spent in the performance of separately billed services. Admission and Anticipated Discharge Date Admission Date: August 03, 2025 Subjective Patient seen and examined at bedside. Patient doing well today, no concerns at this time. Review of Systems Review of Systems: Constitutional: No fever, sweats or chills Eyes: No diplopia, no worsening or blurred vision ENT: normal hearing, no trouble swallowing Respiratory: No cough, sputum, dyspnea at rest or on exertion Cardiovascular: No chest pain, tightness or palpitations Abdomen: No pain, nausea, vomiting, diarrhea or constipation Musculoskeletal: + pain between shoulder blades, otherwise no joint pain, calf pain, swelling Neurologic: + falls, + weakness, numbness/tingling, no balance problems Psychiatric: hx of anxiety and depression Skin: No rash or itch, few skin abrasions over left wrist, hand left knee Physical Exam Physical Exam: Gen: A&O 3 NAD, sarcopenia noted HEENT: NCAT, EOMI, not icteric. External ears normal. No rhinorrhea. Moist mucous membranes. Neck: Supple, full range of motion, no observable masses, No meningeal sign. Lungs: No Respiratory distress. CV: RRR, no edema. Abdomen: Soft, nondistended, No rebound tenderness. MSK: No joint swelling, no redness. Pill roll tremor noted Skin: No rashes, petechiae, lesions. Normal color per patient. Neuro: Normal Gait, Grossly intact. Psych: slow to respond at times Results & Data Results & Data Vital Signs (Past 12 Hours) Vital Signs Temp Pulse Pulse Resp BP Pulse Ox O2 Del Method 08/06/25 16:00 36.7 C 78 18 126/81 96 Room Air 08/06/25 08:37 36.7 C 17 101/68 98 Room Air 08/06/25 07:44 87 98 Room Air Laboratory Results -personally reviewed, creatinine at baseline Medications Administered Apixaban (Apixaban 2.5 Mg Tab) 2.5 mg PO BID SOL Stop: 09/02/25 20:59 Last Admin: 08/06/25 08:40 Dose: 2.5 mg Documented By: Admin: 08/05/25 21:02 Dose: 2.5 mg Documented By: Admin: 08/05/25 08:21 Dose: 2.5 mg Documented By: Admin: 08/04/25 20:01 Dose: 2.5 mg Documented By: Admin: 08/04/25 09:42 Dose: 2.5 mg Documented By: Admin: 08/03/25 20:08 Dose: 2.5 mg Documented By: HAILY Bisacodyl (Bisacodyl 5 Mg Tabec) 5 mg PO DAILY SOL Stop: 09/02/25 15:54 Last Admin: 08/06/25 08:41 Dose: Not Given Documented By: Admin: 08/05/25 09:21 Dose: 5 mg Documented By: Admin: 08/04/25 13:24 Dose: Not Given Documented By: Admin: 08/03/25 16:52 Dose: Not Given Documented By: ROMERO Carbidopa/Levodopa (Carbidopa/Levodopa 25/100mg Tab) 1 tab PO TID SOL Stop: 09/02/25 20:59 Last Admin: 08/06/25 13:35 Dose: 1 tab Documented By: Admin: 08/06/25 08:39 Dose: 1 tab Documented By: Admin: 08/05/25 21:03 Dose: 1 tab Documented By: Admin: 08/05/25 13:54 Dose: 1 tab Documented By: Admin: 08/05/25 08:21 Dose: 1 tab Documented By: Admin: 08/04/25 20:01 Dose: 1 tab Documented By: Admin: 08/04/25 14:22 Dose: 1 tab Documented By: Admin: 08/04/25 09:41 Dose: 1 tab Documented By: Admin: 08/03/25 20:09 Dose: 1 tab Documented By: HAILY Cyanocobalamin (Cyanocobalamin (B-12) 500 Mcg Tablet) 1,000 mcg PO QAM SOL Stop: 09/03/25 08:59 Last Admin: 08/06/25 08:40 Dose: 1,000 mcg Documented By: Admin: 08/05/25 08:20 Dose: 1,000 mcg Documented By: Admin: 08/04/25 09:41 Dose: 1,000 mcg Documented By: ROMERO Donepezil HCl (Donepezil Hcl 10 Mg Tab) 10 mg PO QAM SOL Stop: 09/02/25 15:14 Last Admin: 08/06/25 08:40 Dose: 10 mg Documented By: Admin: 08/05/25 08:22 Dose: 10 mg Documented By: Admin: 08/04/25 09:42 Dose: 10 mg Documented By: Admin: 08/03/25 16:54 Dose: 10 mg Documented By: ROMERO Duloxetine HCl (Duloxetine Hcl 20 Mg Cap) 20 mg PO QAM SOL Stop: 09/03/25 08:59 Last Admin: 08/06/25 08:40 Dose: 20 mg Documented By: Admin: 08/05/25 08:21 Dose: 20 mg Documented By: Admin: 08/04/25 09:42 Dose: 20 mg Documented By: ROMERO Gabapentin (Gabapentin 100 Mg Cap) 200 mg PO HS SOL Stop: 09/02/25 20:59 Last Admin: 08/05/25 21:03 Dose: 200 mg Documented By: Admin: 08/04/25 20:01 Dose: 200 mg Documented By: Admin: 08/03/25 20:09 Dose: 200 mg Documented By: HAILY Ceftriaxone Sodium (Rocephin) 1,000 mg in 50 mls @ 100 mls/hr IV Q24H SOL Stop: 08/07/25 10:29 Last Infusion: 08/06/25 11:14 Dose: Infused Documented By: Admin: 08/06/25 10:24 Dose: 100 mls/hr Documented By: Infusion: 08/05/25 10:50 Dose: Infused Documented By: Infusion: 08/05/25 10:23 Dose: 100 mls/hr Documented By: Infusion: 08/05/25 10:15 Dose: 0 mls/hr Documented By: Admin: 08/05/25 10:11 Dose: 100 mls/hr Documented By: VERONIQUE Levothyroxine Sodium (Levothyroxine Sodium 100 Mcg Tablet) 100 mcg PO DAILYBB SOL Stop: 09/03/25 06:29 Last Admin: 08/06/25 06:24 Dose: 100 mcg Documented By: Admin: 08/05/25 06:08 Dose: 100 mcg Documented By: Admin: 08/04/25 05:42 Dose: 100 mcg Documented By: HAILY Melatonin (Melatonin 3 Mg Tab) 9 mg PO HS PRN PRN Reason: Sleep Stop: 09/02/25 15:33 Last Admin: 08/03/25 20:19 Dose: 9 mg Documented By: HAILY Memantine (Memantine Hcl 10 Mg Tab) 10 mg PO HS SOL Stop: 09/02/25 20:59 Last Admin: 08/05/25 21:02 Dose: 10 mg Documented By: Admin: 08/04/25 20:01 Dose: 10 mg Documented By: Admin: 08/03/25 20:08 Dose: 10 mg Documented By: HAILY Metoprolol Succinate (Metoprolol Succ 50mg Ext Rel Tab) 50 mg PO BID SOL Stop: 09/02/25 20:59 Last Admin: 08/06/25 08:40 Dose: 50 mg Documented By: Admin: 08/05/25 21:04 Dose: 50 mg Documented By: Admin: 08/05/25 08:21 Dose: 50 mg Documented By: Admin: 08/04/25 20:01 Dose: 50 mg Documented By: Admin: 08/04/25 09:42 Dose: 50 mg Documented By: Admin: 08/03/25 20:10 Dose: 50 mg Documented By: HAILY Miscellaneous (Remove Lidoderm Patch) 1 each N/A DAILY@2100 SOL Stop: 09/02/25 20:59 Last Admin: 08/05/25 21:06 Dose: 1 each Documented By: Admin: 08/04/25 20:01 Dose: 1 each Documented By: Admin: 08/03/25 20:10 Dose: 1 each Documented By: HAILY Multivitamins (Multivitamin Tab) 1 tab PO QA SOL Stop: 09/03/25 08:59 Last Admin: 08/06/25 08:39 Dose: 1 tab Documented By: Admin: 08/05/25 08:20 Dose: 1 tab Documented By: Admin: 08/04/25 09:41 Dose: 1 tab Documented By: ROMERO Simvastatin (Simvastatin 20 Mg Tab) 20 mg PO HS SOL Stop: 09/02/25 20:59 Last Admin: 08/05/25 21:04 Dose: 20 mg Documented By: Admin: 08/04/25 20:01 Dose: 20 mg Documented By: Admin: 08/03/25 20:09 Dose: 20 mg Documented By: HAILY Trazodone HCl (Trazodone Hcl 100 Mg Tab) 100 mg PO QPM SOL Stop: 09/02/25 20:59 Last Admin: 08/05/25 21:04 Dose: 100 mg Documented By: Admin: 08/04/25 20:01 Dose: 100 mg Documented By: Admin: 08/03/25 20:10 Dose: 100 mg Documented By: HAILY Vitamin D (Cholecalciferol 25 Mcg (1000 Units) Tab) [facility] [place]: 09/03/25 08:59 Last Admin: 08/06/25 08:39 Dose: 25 mcg Documented By: Admin: 08/05/25 08:21 Dose: 25 mcg Documented By: Admin: 08/04/25 09:41 Dose: 25 mcg Documented By: PME (2) Parkinsonism Parkinsonism type: unspecified Qualified Code(s): G20.C - Parkinsonism, unspecified (8) Hypertension Hypertension type: unspecified Qualified Code(s): I10 - Essential (primary) hypertension
[2025-08-06] MEDS ORDERED: MELATONIN 3 MG TAB PO PRN (18:59)
[2025-08-07 07:34] VITALS: BP 125/82; PULSE 64; RESP 18; TEMP 97.7; O2SAT 95
[2025-08-07 08:54] LABS: Anion Gap 5.0 (3-11); Blood Urea Nitrogen 7.0 mg/dl (6-23); Calcium 8.6 mg/dl (8.6-10.3); Carbon Dioxide 28.0 mmol/L (21-32); Chloride 107.0 mmol/L (98-107); Creatinine Clr Calc Pharmacy 64.6 ml/min; Glucose 97.0 mg/dl (70-99(Fasting)); Potassium 4.1 mmol/L (3.5-5.1); Sodium 140.0 mmol/L (136-145)
--- NOTE | 2025-08-07 14:37 | Discharge Summary ---
Discharge Summary Date of Service August 07, 2025 Principal Dx & Hospital Course #1 = Principal Diagnosis (1) Frequent falls: (2) Parkinsonism: (3) Dementia: (4) Chronic anticoagulation: (5) Atrial fibrillation, permanent: (6) Ventricular tachycardia: (7) ICD (implantable cardioverter-defibrillator) in place: (8) Hypertension: (9) Dyslipidemia: (10) DM type 2 (diabetes mellitus, type 2): (11) Hypothyroidism: (12) Depression: (13) Anxiety: (14) Osteoarthritis: Plan This is an 85 yo F with PMHx of persistent atrial fibrillation, history of ventricular fibrillation, history of cardiac arrest s/p AICD implant, history of alcohol induced cardiomyopathy resolved, normal coronaries by cardiac cath in December 2014, hypertension, hyperlipidemia , hypothyroidism, history of GI bleed with peptic ulcer, osteoarthritis, depression and anxiety who presents to the hospital after sustaining multiple falls at home. 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 other cognitive decline Plan: -Continue PT OT, fall precautions -Case management to help with discharge planning -Follows with neurology Dr. Mcgarry with [facility] -Continue carbidopa-levodopa -Reorient frequently to minimize delirium -Continue donepezil, memantine -plan for discharge to SNF tomorrow Abnormal urinalysis -urine culture negative -stop ceftriaxone Atrial Fibrillation Hx vtach s/p ACID in situ HTN HLD -On chronic anticoagulation with Eliquis -Continue metoprolol succinate 50 mg twice a day, simvastatin DM II -HbA1c 5.7 - ISS with accuchecks achs Hypothyroidism -Normal TSH -Continue levothyroxine 100 mcg daily Depression Anxiety -Continue home medication duloxetine, gabapentin, trazodone 100 mg HS I spent a total of 40 minutes in direct patient care, including [id number] time with the patient and/or family, reviewing medical records, ordering and reviewing diagnostic tests, and coordinating care with other healthcare providers. This time includes: history taking, physical examination, medical decision making, counseling, ECG interpretation, imaging interpretation, lab in terpretation, orders, and education, excluding time spent in the performance of separately billed services. Notes For Next Care Provider 85 yo F with PMHx of persistent atrial fibrillation, history of ventricular fibrillation, history of cardiac arrest s/p AICD implant, history of alcohol induced cardiomyopathy resolved, normal coronaries by cardiac cath in December 2014, hypertension, hyperlipidemia , hypothyroidism, history of GI bleed with peptic ulcer, osteoarthritis, depression and anxiety who presents to the hospital after sustaining multiple falls at home. Admitted to medicine for PT/OT further workup. Metabolic encephalopathy during admission 2/2 dementia and delirium, improved. PT/OT recommended SNF. On 08/07/2025 patient medically stable for discharge home. Medication Changes From Visit -see below Admission HPI Per Admitting Provider This is an 85 yo F with PMHx of persistent atrial fibrillation, history of ventricular fibrillation, history of cardiac arrest s/p AICD implant, history of alcohol induced cardiomyopathy resolved, normal coronaries by cardiac cath in December 2014, hypertension, hyperlipidemia , hypothyroidism, history of GI bleed with peptic ulcer, osteoarthritis, depression and anxiety who presents to the hospital after sustaining multiple falls at home. She has recently been seen by neurologist in January 2025 diagnosed her with parkinsonism and early stage d ementia, possible Lewy body dementia. She presents with her son into the room today. Patient is unable to answer simple questions such as date, place and introduces her son seated at bedside incorrectly as her other son Ross where the son here during today's visit is Levon. He states that she fell on Monday which was unwitnessed, in the afternoon when he was off work, found her sitting on the floor, thinks that she tripped over a small rug in the adjacent hallway. Patient could not recall how this event happened, she denied any pain at that time and therefore did not seek medical care. She does not use a walker or a cane at baseline. Again today while he was in the home with her, she yelled and he found her seated on the ground next to her bed where she had sustained an injury to her left eyebrow, left wrist, left elbow and left knee. She also reports having pain between her shoulder blades and feels sore. Son is concerned that this is progressing and is open to discussion about [facility] placement. They are both in agreement for PT/OT evaluations. After her last hospital stay about 1 year ago she was in [facility] for about 3 weeks. Imaging studies reviewed, nuno scan CT was obtained and is negative for acute fractures, trauma or injury. Discharge Exam Gen: A&O 3 NAD, sarcopenia noted HEENT: NCAT, EOMI, not icteric. External ears normal. No rhinorrhea. Moist mucous membranes. Neck: Supple, full range of motion, no observable masses, No meningeal sign. Lungs: No Respiratory distress. CV: RRR, no edema. Abdomen: Soft, nondistended, No rebound tenderness. MSK: No joint swelling, no redness. Pill roll tremor noted Skin: No rashes, petechiae, lesions. Normal color per patient. Neuro: Normal Gait, Grossly intact. Psych: slow to respond at times Updated Medication List Medication Instructions Recorded Confirmed Type cholecalciferol (vitamin D3) 25 1,000 unit PO QAM 10/02/19 08/03/25 History mcg (1,000 unit) chewable tablet (Vitamin D3) gabapentin 100 mg capsule 200 mg PO HS 10/02/19 08/03/25 History metoprolol succinate 50 mg 50 mg PO BID 10/02/19 08/03/25 History tablet,extended release 24 hr multivitamin with minerals 1 tab PO QAM 10/02/19 08/03/25 History (Hair,Skin and Nails tablet) simvastatin 20 mg tablet 20 mg PO HS 10/02/19 08/03/25 History cyanocobalamin (vitamin B-12) 1,000 mcg PO QAM 12/24/19 08/03/25 History 1,000 mcg tablet (Vitamin B-12) melatonin 5 mg capsule 10 mg PO HS PRN Sleep 12/24/19 08/03/25 History donepezil 10 mg tablet 10 mg PO QAM 03/14/23 08/03/25 History levothyroxine 100 mcg tablet 100 mcg PO DAILY 03/14/23 08/03/25 History memantine 10 mg tablet 10 mg PO HS 03/14/23 08/03/25 History trazodone 100 mg tablet 100 mg PO QPM 03/14/23 08/03/25 History duloxetine 20 mg capsule,delayed 20 mg PO QAM 05/19/23 08/03/25 History release carbidopa 25 mg-levodopa 100 mg 1 tab PO TID #90 tabs 02/10/25 08/03/25 Rx tablet apixaban 5 mg tablet (Eliquis) 2.5 mg (1/2 x 5 mg) PO BID #180 04/08/25 08/03/25 Rx tabs Hospital Stay Data Consultations 08/03/25 14:24 ED Decision to Admit Stat Diagnostic Imagining Performed 08/03/25 11:43 CT abd pelvis IV con only Stat CT cervical spine wo con Stat CT chest diagnostic w con Stat CT head/brain wo con Stat Pending Results Patient Have Any Pending Studies at Discharge: No Discharge Instructions Given to Patient (Per Discharging Provider) Diagnosis: mechanical fall, Parkinsons, dementia Follow Ups: PCP, neurology Incidental Findings: hand osteoarthritis, CAD, spine degenerative disc disease, distended gallbladder 1. Please follow up with PCP, neurology. 2. Stay hydrated! 3. Take medications as prescribed. Total Time Total Time Spent Total Time Spent (In Minutes): I spent a total of 35 minutes in direct patient care, including [id number] time with the patient and/or family, reviewing medical records, ordering and reviewing diagnostic tests, and coordinating care with other healthcare providers. This time includes: history taking, physical examination, medical decision making, counseling, ECG interpretation, imaging interpretation, lab interpretation, orders, and education, excluding time spent in the performance of separately billed services.
== END 2025-08-07 11:30 ==
LOC: ED 11:26 → SUATTDRO 14:32 → INTOOBSV 14:32 → 3E 14:32